=== PATIENT | male | born 1955 | race Caucasian/White ===

== ENCOUNTER 2017-03-31 15:14 | Emergency (ER) | payer OTHER, MEDICAID ==
[2017-03-31] MEDS ORDERED: NALOXONE HCL 0.4 MG/ML INJ IVP ONE (15:26)
--- NOTE | 2017-03-31 15:33 | EDPHY ---
H & P Stated Complaint: Low oxygen saturation. Time Seen by Provider: 03/31/17 15:31 HPI/ROS: CHIEF COMPLAINT: Somnolence, hypoxemia HISTORY OF PRESENT ILLNESS: The patient is brought into the emergency department from [facility] where he was noted to be acutely somnolent and hypoxemic. The patient reportedly has a history of leaving the senior living facility and engaging in recreational drug use. They report through paramedics a history of methamphetamine abuse as well as marijuana abuse. The patient told paramedics that he went to [facility], had a Big Mac and reportedly took some pills. The patient has no history of recent illness by EMS report. The patient denies acute complaints in the emergency department. He is arousable however falls back asleep quickly. REVIEW OF SYSTEMS: A comprehensive 10 point review of systems is otherwise negative aside from elements mentioned in the history of present illness. Source: Patient, EMS - Personal History Current Tetanus Diphtheria and Acellular Pertussis (TDAP): Unsure - Medical/Surgical History Hx Asthma: No Hx Chronic Respiratory Disease: Yes Hx Diabetes: No Hx Cardiac Disease: No Hx Renal Disease: No Hx Cirrhosis: No Hx Alcoholism: No Hx HIV/AIDS: No Hx Splenectomy or Spleen Trauma: No Other PMH: COPD. HTN. Spinal stenosis. Hepatitis. Cognitive communication deficit. Swelling to left upper arm. - Social History Smoking Status: Unknown if ever smoked - Physical Exam Exam: General Appearance: Somnolent, arousable to painful stimuli Eyes: Slightly miotic pupils noted, reactive bilaterally ENT, Mouth: Dry mucous membranes Respiratory: There are no retractions, lungs are clear to auscultation Cardiovascular: Regular rate and rhythm Gastrointestinal: Abdomen is soft and nontender, no masses, bowel sounds normal Neurological: Moves all 4 extremities with 5/5 strength, unable to participate in cranial nerve exam secondary to somnolence Skin: Stasis dermatitis bilateral lower extremities Musculoskeletal: Neck is supple nontender Extremities: Changes consistent with stasis dermatitis noted to the bilateral lower extremities Constitutional: Initial Vital Signs Temperature (C) 36.7 C 03/31/17 15:23 Heart Rate 86 03/31/17 15:23 Respiratory Rate 19 03/31/17 15:23 Blood Pressure 128/106 H 03/31/17 15:23 O2 Sat (%) 86 L 03/31/17 15:23 O2 Delivery Mode Nasal Cannula O2 (L/minute) 5 Allergies/Adverse Reactions: Penicillins Allergy (Verified 03/31/17 15:29) vecuronium Allergy (Verified 03/31/17 15:29) Home Medications: Medication Instructions Recorded ACETAMINOPHEN 03/31/17 Fentanyl 03/31/17 GABAPENTIN 03/31/17 Norvasc 03/31/17 Ranitidine HCl 03/31/17 morphINE 03/31/17 Medical Decision Making - Diagnostics Imaging Results: Imaging Impressions Chest X-Ray 03/31/17 15:26 Impression: Limited hypoventilatory chest with indistinct right basilar opacities possibly related to aspiration, atelectasis, and/or pneumonia. Head CT 03/31/17 17:46 Impression: 1. Limited assessment of severe spinal canal narrowing at the craniocervical junction. CT or MRI is recommended for further evaluation. 2. Motion limited study, with no acute intracranial findings. 3. Linear hypodensity in the left cerebellum, possibly related to old infarct. 4. Diffuse cerebral atrophy, with periventricular and subcortical low attenuation consistent with chronic microvascular ischemic gliosis. 5. Anterior subluxation of the temporomandibular joints bilaterally, with moderate degenerative change in the left temporomandibular joint. Findings discussed with Jaime Lobo M.D., on March 31, 2017 at 1916. ED Course/Re-evaluation: The patient was placed on supplemental oxygen. Given his hypoxemia and slight miosis 0.4 mg of Narcan was ordered at 3:30 p.m.. The patient had minimal response to Narcan. He is arousable. He was placed on a patent chemist and observed. Given the patient's underlying cognitive dysfunction at baseline he did undergo a head CT scan which demonstrates no evidence of intracranial hemorrhage. The patient is noted to have positive marijuana and opioids on his toxicology screen. The remainder of the patient's vital signs are stable. His hypoxemia has resolved. His mentation appears to be at baseline. The patient will be discharged back to his senior living facility. They are instructed to return the patient for any recurrent acute altered mental status, vital sign abnormalities or other acute concerns. Differential Diagnosis: Differential diagnosis considered includes intracranial hemorrhage, medication side effect, febrile illness, substance abuse, alcohol intoxication - Data Points Laboratory Results: Laboratory Results 03/31/17 15:17 03/31/17 15:17 03/31/17 03/31/17 03/31/17 16:33 15:17 15:17 WBC TNP RBC Not Reported Hgb Not Reported Hct Not Reported MCV Not Reported MCH Not Reported MCHC Not Reported RDW Not Reported Plt Count Not Reported MPV Not Reported Neut % (Auto) Not Reported Lymph % (Auto) Not Reported [place] % (Auto) Not Reported Eos % (Auto) Not Reported Baso % (Auto) Not Reported Nucleat RBC Rel Count Not Reported Absolute Neuts (auto) Not Reported Absolute Lymphs (auto) Not Reported Absolute Monos (auto) Not Reported Absolute Eos (auto) Not Reported Absolute Basos (auto) Not Reported Absolute Nucleated RBC Not Reported Immature Gran % Not Reported Immature Gran # Not Reported Sodium 141 mEq/L mEq/L (134-144) Potassium 5.1 mEq/L mEq/L (3.5-5.2) Chloride 102 mEq/L mEq/L (97-110) Carbon Dioxide 24 mEq/l mEq/l (22-31) Anion Gap 15 mEq/L mEq/L (8-16) BUN 22 mg/dL mg/dL (7-23) Creatinine 0.9 mg/dL mg/dL (0.7-1.3) Estimated GFR > 60 Glucose 101 mg/dL H mg/dL (70-100) Calcium 10.0 mg/dL mg/dL (8.5-10.4) Urine Opiates Screen NON-NEGATIVE H (NEGATIVE) Urine Barbiturates NEGATIVE (NEGATIVE) Ur Phencyclidine Scrn NEGATIVE (NEGATIVE) Ur Amphetamine Screen NEGATIVE (NEGATIVE) U Benzodiazepines Scrn NEGATIVE (NEGATIVE) Urine Cocaine Screen NEGATIVE (NEGATIVE) U Marijuana (THC) Screen NON-NEGATIVE H (NEGATIVE) Ethyl Alcohol < 10 mg/dL mg/dL (0-10) Medications Given: Discontinued Medications Naloxone HCl (Narcan) 0.4 mg IVP EDNOW ONE Stop: 03/31/17 15:27 Last Admin: 03/31/17 15:44 Dose: 0.4 mg Departure - Departure Disposition: Home, Routine, Self-Care Clinical Impression: Marijuana use Condition: Good Instructions: Altered Mental Status (ED) Additional Instructions: 1. Your urine toxicology shows marijuana and opioids. 2. Return to ED for any acute concerns or vital sign abnormalities. Referrals: JAIME HEIN [Primary Care Provider] - As per Instructions
[2017-03-31 16:06] LABS: ANION GAP 15 mEq/L (8-16); CARBON DIOXIDE 24 mEq/l (22-31); CHLORIDE 102 mEq/L (97-110); CREATININE 0.9 mg/dL (0.7-1.3); ETHANOL SERUM < 10 mg/dL (0-10); GLOMERULAR FILTRATION RATE > 60; GLUCOSE 101 mg/dL (70-100); POTASSIUM 5.1 mEq/L (3.5-5.2); SODIUM 141 mEq/L (134-144)
[2017-03-31 18:33] VITALS: TEMP 97.7
[2017-03-31 20:14] VITALS: RESP 20
[2017-03-31 20:20] VITALS: BP 140/89; PULSE 66; O2SAT 91
== END 2017-03-31 21:21 | disposition home or self-care (01) ==
DX: R09.02 Hypoxemia (principal); F12.90 Cannabis use, unspecified, uncomplicated; J44.9 Chronic obstructive pulmonary disease, unspecified; I10 Essential (primary) hypertension
CPT/HCPCS: 70450; 71010; 96374; 99285; J2310; 80305; G0480

== ENCOUNTER 2017-04-03 12:19 | Inpatient (IN) | payer OTHER, MEDICAID ==
--- NOTE | 2017-04-03 13:05 | EDPHY ---
H & P Smoking Status: Unknown if ever smoked Time Seen by Provider: 04/03/17 12:23 HPI/ROS: Chief complaint. Hypoxia HPI. A 62-year-old male who is a resident of [facility] here by EMS for low pulse oximeter. The patient apparently had a trip and fall earlier today and then was found later in bed without his oxygen on. Oxygen saturation was about 84% on room air. Patient is normally on oxygen at 3 liters/minute. EMS placed the patient initially on a mask and then back to 3 L. He is now about 92% on 3 L. he denies head injury or neck pain. Denies chest pain or sense of shortness of breath. No fever cough. No abdominal pain. Slight swelling of his lower extremities which is chronic. ROS Constitutional. no fever/chills, no weakness Eyes. no problems with vision ENT. no sore throat, no nasal drainage Cardiovascular. no chest pain Respiratory. Low oxygen level Abdominal. no abdominal pain, no nausea/vomiting, no diarrhea . no problems urinating MS. no calf pain/swelling, no neck/back pain, no joint pain. Slight swelling to both ankles Skin. no rash Lymph. no swollen glands Neuro. Walks with a walker (Zeeshan Rice S) Past Medical/Surgical History: Acute on chronic respiratory failure, chronic hepatitis, cognitive communication deficit the, substance abuse, spinal stenosis, ataxia, COPD , hypertension (Zeeshan Rice S) Social History: Single, daily smoker, no alcohol (Zeeshan Rice) Physical Exam: General Appearance: Alert well-developed male mild distress vital signs significant for oxygen saturation 90-92% on his usual 3 L Eyes: Pupils equal and round no pallor or injection. ENT, Mouth: Mucous membranes are moist. Respiratory: No retractions. Mild inspiratory and expiratory rhonchi Cardiovascular: Regular rate and rhythm. Gastrointestinal: Abdomen is soft and nontender, no masses, bowel sounds normal. Neurological: Awake and alert, sensory and motor exams grossly normal. Skin: Warm and dry, no rashes. Musculoskeletal: Neck is supple nontender. Extremities 1+ pedal edema bilaterally Psychiatric: Patient is oriented X 3, there is no agitation. (Zeeshan Rice S) Constitutional: Initial Vital Signs Temperature (C) 36.9 C 04/03/17 12:23 Heart Rate 86 04/03/17 12:23 Respiratory Rate 18 04/03/17 12:23 Blood Pressure 134/84 H 04/03/17 12:23 O2 Sat (%) 90 L 04/03/17 12:23 O2 Delivery Mode Non-Rebreather Mask O2 (L/minute) 4 Allergies/Adverse Reactions: Penicillins Allergy (Verified 03/31/17 15:29) vecuronium Allergy (Verified 03/31/17 15:29) Home Medications: Medication Instructions Recorded ACETAMINOPHEN 03/31/17 Fentanyl 03/31/17 GABAPENTIN 03/31/17 Norvasc 03/31/17 Ranitidine HCl 03/31/17 morphINE 03/31/17 Medical Decision Making - Diagnostics EKG Interpretation: EKG time is 2:46 p.m.; EKG shows a narrow complex normal sinus rhythm with a ventricular rate of 93. Borderline right axis deviation noted. Low voltage in the frontal leads. The OK, QRS, QT intervals are within normal limits. There are no ST-T wave changes indicative of ischemic or injury pattern. No evidence of right heart strain. Interpreted by me. (Ambrosio Priest) Imaging Results: Imaging Impressions Chest X-Ray 04/03/17 13:10 Impression: 1. Right lower lobe pneumonia. 2. Cardiomegaly. 3. No pneumothorax. Imaging Impressions Chest X-Ray 04/03/17 13:10 Impression: 1. Right lower lobe pneumonia. 2. Cardiomegaly. 3. No pneumothorax. Chest x-ray reviewed by me and discussed with consistent with right lower lobe pneumonia (Zeeshan Rice) Procedures: IV normal saline, oxygen, monitor Sepsis workup including blood cultures (Zeeshan Rice) ED Course/Re-evaluation: I took over care of this patient at 3:00 p.m.. This patient has a right lower lobe infiltrate on x-ray. The patient will be admitted for pneumonia to the hospitalist service under the care of Dr. Giovani Olivier. Blood cultures have been ordered. Initial sepsis protocol initiated. The patient will be started on IV ceftriaxone and IV azithromycin in the emergency department. 4:00 p.m., patient has received his IV antibiotics as above. Initial venous lactate is 0.8. Laboratory work reviewed. EKG interpretation as above. Patient's remaining emergency department course under my care has been uneventful. Patient admitted to the hospitalist service in stable and improved condition. (Ambrosio Priest) Differential Diagnosis: I considered COPD exacerbation, pneumonia, congestive heart failure (Zeeshan Rice) Care Turn Over: Dr. Priest at 1500 (Zeeshan Rice) - Data Points Medications Given: Discontinued Medications Acetaminophen (Tylenol) 1,000 mg PO EDNOW ONE Stop: 04/03/17 14:50 Last Admin: 04/03/17 14:50 Dose: 1,000 mg Departure - Departure Disposition: [facility] Inpatient Acute Clinical Impression: Pneumonia, Hypoxia
[2017-04-03] MEDS ORDERED: ACETAMINOPHEN 500 MG TAB PO ONE (14:49)
--- NOTE | 2017-04-03 14:49 | CPEKG ---
Heart Rate: 93 RR Interval: 645 P-R Interval: 172 QRSD Interval: 98 QT Interval: 372 QTC Interval: 463 P Polk: 48 QRS Polk: 81 T Wave Polk: 9 EKG Severity - OTHERWISE NORMAL ECG - EKG Impression: SINUS RHYTHM EKG Impression: BORDERLINE RIGHT AXIS DEVIATION EKG Impression: LOW VOLTAGE IN FRONTAL LEADS Electronically Signed By: Zeeshan Rice 03-Apr-2017 15:27:27
[2017-04-03] MEDS ORDERED: AZITHROMYCIN IV 500 MG in D5W 250 ML IV ONE (15:04)
[2017-04-03 15:29] LABS: % IMMATURE GRANULYOCYTES 0.3 % (0.0-1.1); ABSOLUTE IMMATURE GRANULOCYTES 0.02 10^3/uL (0.00-0.10); ADD DIFF? NO; ADD MORPH? NO; ADD SCAN? NO; ATYPICAL LYMPHOCYTE FLAG 0 (0-99); FRAGMENT RBC FLAG 0 (0-99); HEMATOCRIT 45.8 % (40.0-51.0); HEMOGLOBIN 13.8 g/dL (13.7-17.5); LEFT SHIFT FLG 0 (0-99); LIPEMIA HEMOLYSIS FLAG 80 (0-99); MEAN CELL HEMOGLOBIN 24.6 pg (27.9-34.1); MEAN CELL HEMOGLOBIN CONCENTR. 30.1 g/dL (32.4-36.7); MEAN CELL VOLUME 81.8 fL (81.5-99.8); MEAN PLATELET VOLUME 8.8 fL (8.7-11.7); PLATELET CLUMPS FLAG 20 (0-99); PLATELET COUNT 220 10^3/uL (150-400); RED CELL DISTRIBUTION WIDTH 19.2 % (11.5-15.2)
[2017-04-03 15:38] LABS: INR 1.1 (0.83-1.16); PROTIME(PATIENT) 14.1 SEC (12.0-15.0)
[2017-04-03 15:39] LABS: APTT 27.8 SEC (23.0-38.0)
[2017-04-03 15:46] LABS: ANION GAP 14 mEq/L (8-16); CALCIUM 9.4 mg/dL (8.5-10.4); CARBON DIOXIDE 25 mEq/l (22-31); CHLORIDE 102 mEq/L (97-110); CREATININE 0.7 mg/dL (0.7-1.3); GLOMERULAR FILTRATION RATE > 60; GLUCOSE 119 mg/dL (70-100); POTASSIUM 4.6 mEq/L (3.5-5.2); SODIUM 141 mEq/L (134-144)
[2017-04-03] MEDS ORDERED: IPRATROPIUM/ALBUTEROL 3 ML DEYVIAL IH PRN (15:46)
[2017-04-03] MEDS ORDERED: ACETAMINOPHEN 325 MG TAB PO PRN ×2 (15:46→17:09)
[2017-04-03] MEDS ORDERED: ONDANSETRON 4 MG/2 ML VIAL IVP PRN (15:46)
[2017-04-03 15:58] LABS: TROPONIN I < 0.012 ng/mL (0.000-0.034)
--- NOTE | 2017-04-03 16:20 | GHP ---
[f rep st] HISTORY AND PHYSICAL DATE OF ADMISSION: 04/03/2017 CHIEF COMPLAINT: Hypoxia. HISTORY OF PRESENT ILLNESS: This is a 62-year-old male who resides at [facility] and was brought to the emergency department by EMS after he was found to have a room air oxygen saturation in the 80s . Patient was found in bed without his oxygen on, which he wears due to his COPD. 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 He denies any chest pain, but tells me he does have some shortness of breath. N o fevers or chills. He is unable to tell me if he has been having any problems swallowing. PAST MEDICAL HISTORY: 1. Mvuse-ze-rvtgmhp respiratory failure. 2. Chronic hepatitis. 3. Cognitive communication deficits, substance abuse, spinal stenosis, ataxia, COPD, and hypertensio n. SURGICAL HISTORY: Unobtainable. SOCIAL HISTORY: The patient resides at [facility]. He does have history of tobacco use. No hist ory of alcohol use. FAMILY HISTORY: Unobtainable. REVIEW OF SYSTEMS: A comprehensive 10-point review of systems was attempted; however, it seemed unre liable given the patient does not seem to be an effective communicator. PHYSICAL EXAMINATION: VITAL SIGNS: Blood pressure 134/82, pulse of 85, respiratory rate 16, O2 SAT 95% on non-rebreather, temperature 38.5. Initial room air saturation was 84%. GENERAL: No acute di stress. HEAD: Normocephalic, atraumatic. EYES: PERRLA. Sclerae anicteric. MOUTH: Moist mucous membranes. NECK: Supple. No lymphadenopathy. CARDIOVASCULAR: S1, S2. No JVD. There are lower e xtremity edema and signs of stasis dermatitis. PULMONARY: Diminished breath sounds in the right bas e. Lungs otherwise clear. Normal respiratory effort. ABDOMEN: Soft, nontender, nondistended. No guarding or rebound tenderness. Normoactive bowel sounds. EXTREMITIES: No clubbing or cyanosis. N EURO: Cranial nerves 2 through 12 grossly intact. SKIN: There are signs of stasis dermatitis in aniya th legs. DIAGNOSTICS: WBC is 5.8, hemoglobin 13.8, hematocrit 45.8, platelets 220. Coags are pending. Lacti c acid is 0.8. Chemistry panel is pending. BNP is pending. Chest x-ray, which I visualized and per sonally interpreted, shows a right lower lobe pneumonia with some cardiomegaly. EKG, which I visuali zed and personally interpreted, shows sinus rhythm, rate 93 beats per minute; no acute ischemic james es. ASSESSMENT AND PLAN: This is a 62-year-old male with history of ufzxe-bl-fxltyql respiratory failure due to chronic obstructive pulmonary disease and history of tobacco use, who presents with: 1. Frlgs-fc-cwntpnr respiratory failure with evidence for pneumonia. Plan: The patient will be adm itted to the medical surgical floor where he will be continued on azithromycin and ceftriaxone. Bloo d cultures have been drawn. 2. Cardiomegaly on chest x-ray with signs of stasis dermatitis in the legs. Plan: will follow up a BNP. The patient may need some treatment with diuretics. Will defer ordering an echocardiogram at t his time. At this time, the patient will be admitted to the hospital under full code status per his MOLST form that was available in [facility] dated 12/11/2016. /[id number]/MODL
[2017-04-03] MEDS ORDERED: NON-FORMULARY NEW DRUG (Oxycodone Hcl/Acetaminophen [Percocet 10-325 Mg Tablet] 1 EACH) PO PRN (17:09)
[2017-04-03] MEDS: oxyCODONE IR 5 MG TAB PO PRN (18:50)
[2017-04-03] MEDS: OXYCODONE/APAP 5/325 TAB PO PRN (18:50)
[2017-04-03] MEDS: FAMOTIDINE 20 MG TAB PO SCH (20:10)
[2017-04-03] MEDS: morphINE SR 30 MG TAB PO SCH (20:10)
[2017-04-03] MEDS: guaiFENesin 600 MG TAB.ER PO SCH (20:11)
[2017-04-03] MEDS ORDERED: NON-FORMULARY NEW DRUG (Ranitidine Hcl [Ranitidine Hcl] 150 MG) PO SCH (21:00)
[2017-04-03] MEDS: GABAPENTIN 300 MG CAP PO SCH (21:33)
[2017-04-03] MEDS ORDERED: NON-FORMULARY NEW DRUG (Gabapentin [Gabapentin] 600 MG) PO SCH (22:00)
[2017-04-04] MEDS: oxyCODONE IR 5 MG TAB PO PRN ×3 (02:50→21:32)
[2017-04-04] MEDS: OXYCODONE/APAP 5/325 TAB PO PRN ×3 (02:50→19:50)
[2017-04-04 04:40] LABS: % IMMATURE GRANULYOCYTES 0.2 % (0.0-1.1); ABSOLUTE IMMATURE GRANULOCYTES 0.01 10^3/uL (0.00-0.10); ADD DIFF? NO; ADD MORPH? NO; ADD SCAN? NO; ATYPICAL LYMPHOCYTE FLAG 10 (0-99); FRAGMENT RBC FLAG 0 (0-99); HEMATOCRIT 42.3 % (40.0-51.0); HEMOGLOBIN 12.7 g/dL (13.7-17.5); LEFT SHIFT FLG 0 (0-99); LIPEMIA HEMOLYSIS FLAG 80 (0-99); MEAN CELL VOLUME 83.1 fL (81.5-99.8); MEAN PLATELET VOLUME 8.1 fL (8.7-11.7); PLATELET CLUMPS FLAG 0 (0-99); PLATELET COUNT 171 10^3/uL (150-400); RED BLOOD CELL COUNT 5.09 10^6/uL (4.40-6.38); RED CELL DISTRIBUTION WIDTH 18.6 % (11.5-15.2)
[2017-04-04 04:56] LABS: ANION GAP 9 mEq/L (8-16); CALCIUM 8.9 mg/dL (8.5-10.4); CARBON DIOXIDE 27 mEq/l (22-31); CHLORIDE 105 mEq/L (97-110); CREATININE 0.8 mg/dL (0.7-1.3); GLOMERULAR FILTRATION RATE > 60; GLUCOSE 97 mg/dL (70-100); POTASSIUM 4.2 mEq/L (3.5-5.2); SODIUM 141 mEq/L (134-144)
[2017-04-04] MEDS: DULoxetine 60 MG CAP PO SCH (08:13)
[2017-04-04] MEDS: MULTIVITAMINS 1 EACH TAB PO SCH (08:13)
[2017-04-04] MEDS: guaiFENesin 600 MG TAB.ER PO SCH ×2 (08:13→20:28)
[2017-04-04] MEDS: FAMOTIDINE 20 MG TAB PO SCH ×2 (08:14→20:30)
[2017-04-04] MEDS: GABAPENTIN 300 MG CAP PO SCH ×3 (08:14→20:27)
[2017-04-04] MEDS: FOLIC ACID 1 MG TAB PO SCH (08:15)
[2017-04-04] MEDS: AZITHROMYCIN IV 500 MG in D5W 250 ML IV SCH (08:15)
[2017-04-04] MEDS: morphINE SR 30 MG TAB PO SCH ×2 (08:15→20:30)
[2017-04-04] MEDS: ENOXAPARIN 40 MG/0.4 ML SYR SC SCH (08:15)
[2017-04-04] MEDS ORDERED: Herbals/Supplements -Info Only PO SCH (09:00)
[2017-04-04] MEDS ORDERED: ALBUTEROL 3 ML DEYVIAL IH PRN (11:07)
--- NOTE | 2017-04-04 11:07 | HOSPPROG ---
Hospitalist Progress Note Assessment/Plan: 62 yo M with PMH of COPD, CVA with residual cognitive deficits, spinal stenosis and ataxia admitted with acute on chronic respiratory failure and pna # acute on chronic hypoxic respiratory failure: at baseline on 3L continuously and [facility] with [facility] off and o2 sats in low to mid 80s, requiring 10L overnight to maintain o2 sats in 90s. CXR c/w PNA as next, also suspect contribution of copd exacerbation and atelectasis, possible aspiration. # RLL PNA: noted on cxr and started on ctx/azithro, ? aspiration given hx of cognitive issues and location of pna, director human services to evaluate # copd with acute exacerbation: air movement decreased in setting of above, will change duonebs to scheduled given continued low o2 and poor air mvmt, albuterol prn. Will continue to hold off on steroids for now # chronic venous stasis dermatitis: with associated ble edema and some serous drainage from the lower extremities as well as scattered wounds. Will ask wound care to evaluate. # hx of cva: with residual cognitive deficits, resides in [facility] since cva # psa: patient apparently has [facility] in [facility] to obtain drugs on the street, seen recently in our ER for meth/MJ intoxication # spinal stenosis/ataxia: pt/ot to evaluate # chronic pain with continuous narcotic use and dependency: continued on home regimen # dispo: IP status, will need > 48 hours stay for eval/mgmt of above given multiple active medical issues Patient new to my care. Old records reviewed and summarized as above. Subjective: no significant overnight events, patient is currently feeling poorly --notes he did not sleep well and that he is still feeling sob Objective: Vital Signs Temp Pulse Resp BP Pulse Ox 36.9 C 71 16 139/69 H 98 04/04/17 08:27 04/04/17 08:27 04/04/17 08:27 04/04/17 08:27 04/04/17 08:27 Laboratory Results 04/04/17 04:29 04/04/17 04:29 04/03/17 04/04/17 04/05/17 05:59 05:59 05:59 Intake Total 150 Output Total 1700 Balance -1550 PT 14.1 SEC (12.0-15.0) 04/03/17 15:20 INR 1.10 (0.83-1.16) 04/03/17 15:20 chronically ill appearing anicteric op clear rrr no mrg dec bs throughout occasional wheeze soft nt nd ble 1+ edema with skin thickening and hyperpigmentation c/w venous stasis, spontaneous drainage serous fluid RLE warm dry well perfused other than as above speech a bit slurred, oriented ICD10 Worksheet Patient Problems: Problems Problem Status Onset Pneumonia Acute Hypoxia Acute
[2017-04-04] MEDS: IPRATROPIUM/ALBUTEROL 3 ML DEYVIAL IH SCH ×2 (12:00→18:29)
--- NOTE | 2017-04-04 17:06 | ASDISCHSUM ---
Discharge Information Plan Status: Medically Cleared to Leave: Discharge Date: CM D/C Disposition: ADT D/C Disposition: Projected Discharge Date: Transportation at D/C: Discharge Delay Reason: Follow-Up Date: Discharge Slot: Final Diagnosis: Placement Information Patient Contact Information Contact Name:KATHERYN Relationship:Friend Address: Work Phone: City: [facility] Phone: State/Zip Code: Email: Financial Information Financial Class: Primary Plan Desc:MEDICARE OUTPATIENT Primary Plan Number:[id number] Secondary Plan Desc:MEDICAID [employer] [place] Secondary Plan Number:[id number] Assessment Information Intervention Information Intervention Type:Transportation Date of Service:04/03/2017 01:52 PM Patient Type:Emergency Room Staff Member:Nico De La Torre Hours:0.25 Discipline: Severity: Comment:
--- NOTE | 2017-04-04 17:58 | ASMTCMCOM ---
CM Note CM Note Notes: Reviewed chart. Pt admitted w/ resp failure, PNA, hx of CVA w/ residual deficits, COPD, spinal stenosis and ataxia. Pt lives at [facility] and will likey return to when medically stable. CM will cont to follow. Date Signed: 04/04/2017 05:58 PM Electronically Signed By:Sheila Monroy
--- NOTE | 2017-04-04 18:01 | WOCRNPDOC ---
WOCRN Advanced Assessment Note - Skin Integrity Problem, Advanced Assess Bilateral Lower Legs Dressing Type: Open to Air Exudate Amount: None Anika Wound Tissue: Erythema (mild), Hemosiderin Staining, Xerotic Wound Bed Color: Brown Wound Bed Constitution: Scab Wound Edges: Attached, Well Defined, Irregular Site Odor: None Site Measurement - Head-to-Toe Length X Width X Depth (cm): several--varying from <1cm x 0.7 cm, up to 6 cm x 1 cm x 0 (scabbed) Lymphedema Present: Yes Peripheral Edema Location & Description: bilateral ankles and LEs, 1+ non- pitting Skin Integrity Problem Comment: Patient asleep at time of eval. Bilateral LE wounds have an appearance more consistent with traumatic injuries, such as fingernail scratches or abrasions, rather than venous ulcers, however the surrounding hemosiderin skin coloration and mild edema are suggestive of chronic venous stasis. No drainage of any kind is observable at this visit. Most of the wounds are small and appear to be superficial. The two or three larger wounds are thin, vertical scabs. Antimicrobial silver gel and protective dressings have been recommended for these sites. Nursing is to re-consult Wound Care for any new concerns. Verbal report was given to Silvina Madrid RN.
[2017-04-05] MEDS: IPRATROPIUM/ALBUTEROL 3 ML DEYVIAL IH SCH ×3 (01:18→11:41)
[2017-04-05] MEDS: OXYCODONE/APAP 5/325 TAB PO PRN ×2 (04:11→16:03)
[2017-04-05] MEDS: oxyCODONE IR 5 MG TAB PO PRN (04:12)
[2017-04-05] MEDS: AZITHROMYCIN IV 500 MG in D5W 250 ML IV SCH (08:25)
[2017-04-05 08:35] VITALS: TEMP 98.1
[2017-04-05] MEDS: ENOXAPARIN 40 MG/0.4 ML SYR SC SCH (09:53)
[2017-04-05] MEDS: morphINE SR 30 MG TAB PO SCH (09:54)
[2017-04-05] MEDS: FOLIC ACID 1 MG TAB PO SCH (09:54)
[2017-04-05] MEDS: GABAPENTIN 300 MG CAP PO SCH ×2 (09:54→16:01)
[2017-04-05] MEDS: guaiFENesin 600 MG TAB.ER PO SCH (09:54)
[2017-04-05] MEDS: FAMOTIDINE 20 MG TAB PO SCH (09:55)
[2017-04-05] MEDS: MULTIVITAMINS 1 EACH TAB PO SCH (09:55)
[2017-04-05] MEDS: DULoxetine 60 MG CAP PO SCH (09:55)
--- NOTE | 2017-04-05 11:38 | PDIAF ---
- Diagnosis Diagnosis: pneumonia Code Status: Full Code - Medication Management Discharge Medications: Medications to Continue on Transfer Acetaminophen [Tylenol 325mg (*)] 650 mg PO Q8 PRN 04/03/17 [Last Taken Unknown] DULoxetine [Cymbalta 60 MG (*)] 60 mg PO DAILY 04/03/17 [Last Taken 04/03/17] Folic Acid [Folic Acid 1 MG (*)] 1 mg PO DAILY 04/03/17 [Last Taken 04/03/17] Gabapentin 600 mg PO TID 04/03/17 [Last Taken 04/03/17 08:00] Herbals/Supplements -Info Only 1 ea PO DAILY 04/03/17 [Last Taken Unknown] Multivitamins [Multivitamin (*)] 1 each PO DAILY 04/03/17 [Last Taken 04/03/17] Ranitidine HCl 150 mg PO BID 04/03/17 [Last Taken 04/03/17 08:00] amLODIPine BESYLATE [Norvasc 10 mg (*)] 10 mg PO DAILY 04/03/17 [Last Taken 04/11] morphINE SR [MS Contin/Oramorph SR 30 mg (*)] 30 mg PO BID 04/03/17 [Last Taken 04/03/17 08:00] oxyCODONE HCL/ACETAMINOPHEN [Percocet 10-325 mg Tablet] 1 each PO Q8 PRN [Last Taken 04/02/17] Ipratropium/Albuterol [Duoneb (*)] 3 ml IH Q6 deyvial 04/05/17 [Last Taken Unknown] Tamsulosin HCl [Flomax 0.4 MG (*)] 0.4 mg PO DAILY #30 cap 04/05/17 [Last Taken Unknown] guaiFENesin [Mucinex 600 MG (*)] 1,200 mg PO BID tab.er 04/05/17 [Last Taken Unknown] levOFLOXACIN [levAQUIN (*)] 750 mg PO DAILY #5 tab 04/05/17 [Last Taken Unknown] Discharge Medications: Refer to the Discharge Home Medication list for PRN reason. - Orders Services needed: Registered Nurse, Physical Therapy, Occupational Therapy, Speech Language Pathologist Diet Recommendation: no restrictions on diet Diet Texture: Dysphagia 1 - Pureed, [place] Thick Liquids, Meds Whole in Puree - Follow Up Care Current Providers and Referrals: Patient,NotPresent [Unknown] - As per Instructions
[2017-04-05 11:47] VITALS: RESP 22; O2SAT 93
--- NOTE | 2017-04-05 12:45 | GDS ---
[f rep st] DISCHARGE SUMMARY DISCHARGE DIAGNOSES: 1. Gtvsc-hu-xucosxc respiratory failure, most likely due to pneumonia. 2. Chronic obstructive pulmonary disease with mild exacerbation, improved. 3. Chronic venous stasis dermatitis. 4. Urinary retention. 5. History of cerebrovascular accident with residual cognitive deficits. 6. History of polysubstance abuse. 7. Spinal stenosis with chronic pain syndrome. CONSULTANTS: None. HOSPITAL COURSE BY PROBLEM: Emobi-xu-tkputzx respiratory failure: The patient presented with hypoxe emani when he was found at his longterm not wearing oxygen. He was started on treatment for commun ity-acquired pneumonia with Rocephin and azithromycin. Throughout his stay, he has not had a fever. His white count has been normal. On day of discharge, the patient states he feels well and would li ke to be discharged. He is back to his baseline oxygen requirements by nasal cannula. He is not cou ghing. He denies any wheezing. Patient did have an episode of urinary retention; subsequently, a Fo tres catheter was placed. On day of discharge, he will be started on Flomax. Recommended that he jamaal n to discharge with the Hernandez catheter in place, which will need further management at his skilled [facility] facility to evaluate when it is safe to remove it. PHYSICAL EXAM: VITAL SIGNS: On day of discharge, blood pressure 136/80, pulse 63, respiratory rate 16, O2 sat is 92% on 6 L, but was in the mid 90s on 3 L during the time of my exam. LUNGS: Clear. No wheezes. ABDOMEN: Soft. EXTREMITIES: No edema. PERTINENT LABORATORY DATA AND STUDIES: Viral PCR done on admission was negative. Blood cultures hav e not grown any organisms. DISCHARGE MEDICATIONS: Please refer to discharge medication reconciliation in [facility] for details. Below is a preliminary list. New medications on hospital discharge: Flomax 0.4 mg daily, levofloxacin 750 mg p.o. daily for 5 mor e days. DISCHARGE INSTRUCTIONS: The patient will be discharged to [facility] facility on Flomax. Once again, he will need further monitoring to see when the Hernandez should be removed. I should also note t hat he was seen by Speech Therapy during this hospital stay and was not noted to have any obvious sig ns of aspiration; however, they did recommend a dysphagia-1 diet. He should continue to have physica l therapy on an outpatient basis. /[id number]/MODL
[2017-04-05 13:12] VITALS: BP 139/79; PULSE 61
== END 2017-04-05 16:33 | DRG 189 ==
LOC: EDUNIT# → F1N 17:01
PROVIDERS: ADMIT Family Medicine; ATTEND Family Medicine
DX: J96.20 Acute and chronic respiratory failure, unspecified whether with hypoxia or hypercapnia (principal); J18.8 Other pneumonia, unspecified organism; J44.1 Chronic obstructive pulmonary disease with (acute) exacerbation; I83.10 Varicose veins of unspecified lower extremity with inflammation; R33.9 Retention of urine, unspecified; Z86.73 Personal history of transient ischemic attack (TIA), and cerebral infarction without residual deficits; G89.4 Chronic pain syndrome; M48.00 Spinal stenosis, site unspecified; Z87.891 Personal history of nicotine dependence
CPT/HCPCS: 80305; 92610-GN; 92611-GN; 96374; 97110-GP; 97116-GP; 97162-GP; 97166-GO; G0480; G8978-GP-CL; G8979-GP-CJ; G8987-GO-CL; G8988-GO-CJ; G8996-GN-CJ; G8997-GN-CI; J0456; J0696; J1650; J2310

== ENCOUNTER 2017-05-12 23:49 | Inpatient (IN) | payer OTHER, MEDICAID ==
[2017-05-12] MEDS ORDERED: NS 500 ML IV ONE (23:54)
--- NOTE | 2017-05-13 | EDPHY ---
H & P HPI/ROS: HPI CHIEF COMPLAINT: Fall, hematoma. HISTORY OF PRESENT ILLNESS: This patient very pleasant 62-year-old male, resides local facility, presents emergency room by EMS after he had a mechanical trip and fall reported by EMS staff in the hallway while walking. He has a very unsteady gait at baseline. He is a fall risk. He sustained a fall. He has a rather large left-sided forehead hematoma. He does complain of a headache. He denies any other complaints. Questionable LOC. Past Medical History: History polysubstance abuse, pneumonia, COPD 6 L nasal cannula, on oxygen, CVA, chronic pain. Past Surgical History: No recent surgery Social History: Denies current drugs alcohol tobacco products. Family History: Noncontributory ROS REVIEW OF SYSTEMS: A comprehensive 10 point review of systems is otherwise negative aside from elements mentioned in the history of present illness. Exam Constitutional triage nursing summary reviewed, vital signs reviewed, awake/ alert. Eyes normal conjunctivae and sclera, EOMI, PERRLA. HENT head/neck patient in a rigid cervical collar. Large left forehead hematoma. moist mucus membranes, no epistaxis, neck supple/ no meningismus, no raccoon eyes. Respiratory clear to auscultation bilaterally, normal breath sounds, no respiratory distress, no wheezing. Cardiovascular rate normal, regular rhythm, no murmur, no edema, distal pulses normal. Gastrointestinal soft, non-tender, no rebound, no guarding, normal bowel sounds, no distension, no pulsatile mass. Genitourinary no CVA tenderness. Musculoskeletal no midline vertebral tenderness, full range of motion, no calf swelling, no tenderness of extremities, no meningismus, good pulses, neurovascularly intact. Skin pink, warm, & dry, no rash, skin atraumatic. Neurologic awake, alert and oriented x 3, AAOx3, moves all 4 extremities equally, motor intact, sensory intact, CN II-XII intact, normal cerebellar, normal vision, normal speech. Psychiatric normal mood/affect. Heme/Lymph/Immune no lymphadenopathy. Differential Diagnosis: Includes but is not limited to in a particular order, closed-head injury, intracranial bleed, subdural, traumatic subarachnoid, skull fracture, cervical spine injury, multiple contusions Medical Decision Making: Plan for this patient x-ray chest, left shoulder, CT scan head and neck, blood work. Re-evaluation: ED CT scan head and neck without contrast for trauma head scan shows a forehead hematoma. The cervical spine shows C1 fracture. There is aspects of this fracture that appear old versus new. Given his cervical spine on CT he will be admitted to the hospitalist service for multitude of medical problems. This includes COPD, generalized weakness. And now may have a acute cervical spine fracture. Will keep him in a cervical collar. 1253: Spoke with Neurosurgery Dr. Leong will consult on the patient. Chest x-ray, left shoulder x-ray reviewed. No acute traumatic injury. COPD appearing lungs on chest x-ray. Patient be admitted to the hospitalist service for multitude of chronic medical problems which includes COPD, additionally age-indeterminate C1 fracture. Possibly acute. Neurosurgery is been consult. Patient remains in a cervical collar. Forehead hematoma. No intracranial bleed. Source: Patient, EMS - Medical/Surgical History Hx Asthma: No Hx Chronic Respiratory Disease: Yes Hx Diabetes: No Hx Cardiac Disease: No Hx Renal Disease: No Hx Cirrhosis: No Hx Alcoholism: No Hx HIV/AIDS: No Hx Splenectomy or Spleen Trauma: No Other PMH: COPD. HTN. Spinal stenosis. Hepatitis. Cognitive communication deficit. Swelling to left upper arm. - Social History Smoking Status: Unknown if ever smoked Constitutional: Initial Vital Signs Temperature (C) 36.7 C 05/12/17 23:50 Heart Rate 58 L 05/12/17 23:50 Respiratory Rate 18 05/12/17 23:50 Blood Pressure 166/110 H 05/12/17 23:50 O2 Sat (%) 89 L 05/12/17 23:50 O2 Delivery Mode Nasal Cannula O2 (L/minute) 6 Allergies/Adverse Reactions: Penicillins Allergy (Verified 05/13/17 00:04) vecuronium Allergy (Verified 05/13/17 00:04) Home Medications: Medication Instructions Recorded Acetaminophen [Tylenol 325mg (*)] 650 mg PO Q8 PRN 04/03/17 DULoxetine [Cymbalta 60 MG (*)] 60 mg PO DAILY 04/03/17 Folic Acid [Folic Acid 1 MG (*)] 1 mg PO DAILY 04/03/17 Gabapentin 600 mg PO TID 04/03/17 Herbals/Supplements -Info Only 1 ea PO DAILY 04/03/17 Multivitamins [Multivitamin (*)] 1 each PO DAILY 04/03/17 Ranitidine HCl 150 mg PO BID 04/03/17 amLODIPine BESYLATE [Norvasc 10 mg 10 mg PO DAILY 04/03/17 (*)] morphINE SR [MS Contin/Oramorph SR 30 mg PO BID 04/03/17 30 mg (*)] oxyCODONE HCL/ACETAMINOPHEN 1 each PO Q8 PRN 04/03/17 [Percocet 10-325 mg Tablet] Ipratropium/Albuterol [Duoneb (*)] 3 ml IH Q6 deyvial 04/05/17 Tamsulosin HCl [Flomax 0.4 MG (*)] 0.4 mg PO DAILY #30 cap 04/05/17 guaiFENesin [Mucinex 600 MG (*)] 1,200 mg PO BID tab.er 04/05/17 levOFLOXACIN [levAQUIN (*)] 750 mg PO DAILY #5 tab 04/05/17 Medical Decision Making - Diagnostics Imaging Results: Imaging Impressions Cervical Spine CT 05/12/17 23:54 Impression: Soft tissue hematoma in the scalp left frontal region. No evidence for skull fracture. No evidence for acute intracranial abnormality. Stable chronic findings as above. CT cervical spine without contrast. History: Fall. Trauma. Pain. Technique: 1.5 mm helical images were obtained of the cervical spine without contrast. Multiplanar reformation was performed. Radiation dose reduction technique was utilized. Findings: Severe erosive change is seen at the dens with the dens completely eroded. Erosive change is seen in the anterior arch articulation with the dens. There is pannus and debris posteriorly present significant spinal stenosis at the craniocervical junction. Degenerative change and erosive change and spurring is seen at the lateral mass articulation with C1 with the dens. Subtle nondisplaced lucency is seen in the posterior arch of C1 bilaterally. Slight sclerotic appearance and is more likely chronic than acute. No other findings for acute fracture. Postsurgical changes are seen of fusion of C3- C7. This also fusion of T1 and T2 and of T3 and T4. Degenerative disk and degenerative joint disease is seen at C2-C3 causing mild bilateral neural foraminal narrowing. Degenerative disk and degenerative joint disease is seen at C7-T1 with moderate bilateral neural foraminal narrowing. Degenerative joint and degenerative disk disease is seen at T2-T3 causing severe bilateral neural foraminal narrowing. Impression: 1. Severe erosive change at the dens and degenerative change of C1 articulation with C2 causing severe stenosis at the craniocervical junction. Also appears to be a nondisplaced fracture of the posterior arch of C1 bilateral which could be acute or chronic. 2. Multiple levels of fusion as above with degenerative disk and degenerative joint disease between the levels of fusion as above. Results called and discussed with Gabe Palacios MD at 05/13/2017 0:31. Head CT 05/12/17 23:54 Impression: Soft tissue hematoma in the scalp left frontal region. No evidence for skull fracture. No evidence for acute intracranial abnormality. Stable chronic findings as above. CT cervical spine without contrast. History: Fall. Trauma. Pain. Technique: 1.5 mm helical images were obtained of the cervical spine without contrast. Multiplanar reformation was performed. Radiation dose reduction technique was utilized. Findings: Severe erosive change is seen at the dens with the dens completely eroded. Erosive change is seen in the anterior arch articulation with the dens. There is pannus and debris posteriorly present significant spinal stenosis at the craniocervical junction. Degenerative change and erosive change and spurring is seen at the lateral mass articulation with C1 with the dens. Subtle nondisplaced lucency is seen in the posterior arch of C1 bilaterally. Slight sclerotic appearance and is more likely chronic than acute. No other findings for acute fracture. Postsurgical changes are seen of fusion of C3- C7. This also fusion of T1 and T2 and of T3 and T4. Degenerative disk and degenerative joint disease is seen at C2-C3 causing mild bilateral neural foraminal narrowing. Degenerative disk and degenerative joint disease is seen at C7-T1 with moderate bilateral neural foraminal narrowing. Degenerative joint and degenerative disk disease is seen at T2-T3 causing severe bilateral neural foraminal narrowing. Impression: 1. Severe erosive change at the dens and degenerative change of C1 articulation with C2 causing severe stenosis at the craniocervical junction. Also appears to be a nondisplaced fracture of the posterior arch of C1 bilateral which could be acute or chronic. 2. Multiple levels of fusion as above with degenerative disk and degenerative joint disease between the levels of fusion as above. Results called and discussed with Gabe Palacios MD at 05/13/2017 0:31. - Data Points Laboratory Results: Laboratory Results 05/12/17 23:56 05/12/17 23:56 05/12/17 05/12/17 05/12/17 23:56 23:56 23:56 WBC 6.00 10^3/uL 10^3/uL (3.80-9.50) RBC 5.66 10^6/uL 10^6/uL (4.40-6.38) Hgb 14.5 g/dL g/dL (13.7-17.5) Hct 45.6 % % (40.0-51.0) MCV 80.6 fL L fL (81.5-99.8) MCH 25.6 pg L pg (27.9-34.1) MCHC 31.8 g/dL L g/dL (32.4-36.7) RDW 16.4 % H % (11.5-15.2) Plt Count 246 10^3/uL 10^3/uL (150-400) MPV 8.3 fL L fL (8.7-11.7) Neut % (Auto) 55.2 % % (39.3-74.2) Lymph % (Auto) 30.5 % % (15.0-45.0) Ada % (Auto) 8.7 % % (4.5-13.0) Eos % (Auto) 4.3 % % (0.6-7.6) Baso % (Auto) 1.0 % % (0.3-1.7) Nucleat RBC Rel Count 0.0 % % (0.0-0.2) Absolute Neuts (auto) 3.31 10^3/uL 10^3/uL (1.70-6.50) Absolute Lymphs (auto) 1.83 10^3/uL 10^3/uL (1.00-3.00) Absolute Monos (auto) 0.52 10^3/uL 10^3/uL (0.30-0.80) Absolute Eos (auto) 0.26 10^3/uL 10^3/uL (0.03-0.40) Absolute Basos (auto) 0.06 10^3/uL 10^3/uL (0.02-0.10) Absolute Nucleated RBC 0.00 10^3/uL 10^3/uL (0-0.01) Immature Gran % 0.3 % % (0.0-1.1) Immature Gran # 0.02 10^3/uL 10^3/uL (0.00-0.10) PT 14.3 SEC SEC (12.0-15.0) INR 1.12 (0.83-1.16) APTT 30.2 SEC SEC (23.0-38.0) Sodium 142 mEq/L mEq/L (134-144) Potassium 4.5 mEq/L mEq/L (3.5-5.2) Chloride 103 mEq/L mEq/L (97-110) Carbon Dioxide 28 mEq/l mEq/l (22-31) Anion Gap 11 mEq/L mEq/L (8-16) BUN 17 mg/dL mg/dL (7-23) Creatinine 0.8 mg/dL mg/dL (0.7-1.3) Estimated GFR > 60 Glucose 96 mg/dL mg/dL (70-100) Calcium 9.7 mg/dL mg/dL (8.5-10.4) Magnesium 1.9 mg/dL mg/dL (1.6-2.3) Total Bilirubin 0.9 mg/dL mg/dL (0.1-1.4) Conjugated Bilirubin 0.6 mg/dL H mg/dL (0.0-0.5) Unconjugated Bilirubin 0.3 mg/dL mg/dL (0.0-1.1) AST 31 IU/L IU/L (17-59) ALT 33 IU/L IU/L (21-72) Alkaline Phosphatase 76 IU/L IU/L (38-126) Troponin I < 0.012 ng/mL ng/mL (0.000-0.034) Total Protein 8.3 g/dL H g/dL (6.3-8.2) Albumin 4.1 g/dL g/dL (3.5-5.0) Medications Given: Discontinued Medications Sodium Chloride (Ns) 500 mls @ 1,000 mls/hr IV EDNOW ONE PRN Reason: Protocol Stop: 05/13/17 00:23 Last Admin: 05/13/17 00:29 Dose: 500 mls Morphine Sulfate (Morphine) 4 mg IVP EDNOW ONE Stop: 05/13/17 01:40 Last Admin: 05/13/17 01:44 Dose: 4 mg Departure - Departure Disposition: [facility] Acute Clinical Impression: Hematoma Fall Qualifiers: Encounter type: initial encounter Qualified Code(s): W19.XXXA - Unspecified fall, initial encounter C1 cervical fracture Qualifiers: Encounter type: initial encounter Fracture type: closed Fracture morphology: unspecified fracture morphology Fracture alignment: nondisplaced Qualified Code( s): S12.001A - Unspecified nondisplaced fracture of first cervical vertebra, initial encounter for closed fracture COPD (chronic obstructive pulmonary disease) Qualifiers: COPD type: unspecified COPD Qualified Code(s): J44.9 - Chronic obstructive pulmonary disease, unspecified Condition: Fair Referrals: Patient,NotPresent [Unknown] - As per Instructions
[2017-05-13 00:03] LABS: % IMMATURE GRANULYOCYTES 0.3 % (0.0-1.1); ABSOLUTE IMMATURE GRANULOCYTES 0.02 10^3/uL (0.00-0.10); ADD DIFF? NO; ADD MORPH? NO; ADD SCAN? NO; ATYPICAL LYMPHOCYTE FLAG 20 (0-99); FRAGMENT RBC FLAG 0 (0-99); HEMATOCRIT 45.6 % (40.0-51.0); HEMOGLOBIN 14.5 g/dL (13.7-17.5); LEFT SHIFT FLG 0 (0-99); LIPEMIA HEMOLYSIS FLAG 80 (0-99); MEAN CELL HEMOGLOBIN 25.6 pg (27.9-34.1); MEAN CELL HEMOGLOBIN CONCENTR. 31.8 g/dL (32.4-36.7); MEAN CELL VOLUME 80.6 fL (81.5-99.8); MEAN PLATELET VOLUME 8.3 fL (8.7-11.7); PLATELET CLUMPS FLAG 0 (0-99); PLATELET COUNT 246 10^3/uL (150-400); RED BLOOD CELL COUNT 5.66 10^6/uL (4.40-6.38); RED CELL DISTRIBUTION WIDTH 16.4 % (11.5-15.2)
[2017-05-13 00:27] LABS: APTT 30.2 SEC (23.0-38.0); INR 1.12 (0.83-1.16); PROTIME(PATIENT) 14.3 SEC (12.0-15.0)
[2017-05-13 00:28] LABS: ALANINE AMINOTRANSFERASE 33 IU/L (21-72); ALBUMIN 4.1 g/dL (3.5-5.0); ALKALINE PHOSPHATASE 76 IU/L (38-126); ANION GAP 11 mEq/L (8-16); ASPARTATE AMINOTRANSFERASE 31 IU/L (17-59); BILIRUBIN,TOTAL 0.9 mg/dL (0.1-1.4); BILIRUBIN-CONJUGATED 0.6 mg/dL (0.0-0.5); BILIRUBIN-UNCONJUGATED 0.3 mg/dL (0.0-1.1); CALCIUM 9.7 mg/dL (8.5-10.4); CARBON DIOXIDE 28 mEq/l (22-31); CHLORIDE 103 mEq/L (97-110); CREATININE 0.8 mg/dL (0.7-1.3); GLOMERULAR FILTRATION RATE > 60; GLUCOSE 96 mg/dL (70-100); MAGNESIUM 1.9 mg/dL (1.6-2.3); POTASSIUM 4.5 mEq/L (3.5-5.2); SODIUM 142 mEq/L (134-144); TOTAL PROTEIN 8.3 g/dL (6.3-8.2)
--- NOTE | 2017-05-13 00:30 | CPEKG ---
Heart Rate: 72 RR Interval: 833 P-R Interval: 168 QRSD Interval: 96 QT Interval: 392 QTC Interval: 430 P [place]: -3 QRS [place]: 80 T Wave [place]: 4 EKG Severity - OTHERWISE NORMAL ECG - EKG Impression: SINUS RHYTHM EKG Impression: VENTRICULAR PREMATURE COMPLEX EKG Impression: LOW VOLTAGE IN FRONTAL LEADS Electronically Signed By: Gabe Palacios 13-May-2017 07:19:49
[2017-05-13 00:39] LABS: TROPONIN I < 0.012 ng/mL (0.000-0.034)
[2017-05-13] MEDS ORDERED: ACETAMINOPHEN 650 MG SUPP PR PRN (02:20)
[2017-05-13] MEDS ORDERED: ONDANSETRON DISINTEGRATING 4 MG TAB PO PRN (02:20)
[2017-05-13] MEDS ORDERED: ONDANSETRON 4 MG/2 ML VIAL IVP PRN (02:20)
[2017-05-13] MEDS: NS 1,000 ML IV SCH ×2 (03:38→19:14)
[2017-05-13] MEDS ORDERED: LORazepam 2 MG/ML INJ IVP PRN (05:35)
[2017-05-13 05:53] LABS: % IMMATURE GRANULYOCYTES 0.1 % (0.0-1.1); ABSOLUTE IMMATURE GRANULOCYTES 0.01 10^3/uL (0.00-0.10); ADD DIFF? NO; ADD MORPH? NO; ADD SCAN? NO; ATYPICAL LYMPHOCYTE FLAG 10 (0-99); FRAGMENT RBC FLAG 0 (0-99); HEMATOCRIT 47.5 % (40.0-51.0); HEMOGLOBIN 14.8 g/dL (13.7-17.5); LEFT SHIFT FLG 0 (0-99); LIPEMIA HEMOLYSIS FLAG 80 (0-99); MEAN CELL HEMOGLOBIN 25.2 pg (27.9-34.1); MEAN CELL HEMOGLOBIN CONCENTR. 31.2 g/dL (32.4-36.7); MEAN CELL VOLUME 80.8 fL (81.5-99.8); MEAN PLATELET VOLUME 8.6 fL (8.7-11.7); PLATELET CLUMPS FLAG 10 (0-99); PLATELET COUNT 253 10^3/uL (150-400); RED BLOOD CELL COUNT 5.88 10^6/uL (4.40-6.38); RED CELL DISTRIBUTION WIDTH 16.4 % (11.5-15.2)
[2017-05-13 06:09] LABS: ANION GAP 9 mEq/L (8-16); CALCIUM 9.4 mg/dL (8.5-10.4); CARBON DIOXIDE 27 mEq/l (22-31); CHLORIDE 101 mEq/L (97-110); CREATININE 0.7 mg/dL (0.7-1.3); GLOMERULAR FILTRATION RATE > 60; GLUCOSE 131 mg/dL (70-100); SODIUM 137 mEq/L (134-144)
--- NOTE | 2017-05-13 08:00 | GHP ---
[f rep st] HISTORY AND PHYSICAL DATE OF ADMISSION: 05/13/2017 PRIMARY CARE PHYSICIAN: None listed. HISTORY OF PRESENT ILLNESS: This is a 62-year-old gentleman with past medical history significant for COPD with requirement of 6 L/minute continuous oxygen, chronic respiratory failure, history of CVA with communication deficits, chronic pain, and a remote history of polysubstance abuse who presents to the emergency department today from his nursing facility following a mechanical fall that was witnessed. Patient apparently was walking down the hallway when he took a tumble. He fell forward hitting his face and knees. Patient was complaining of neck pain. Patient also at baseline has a rather unsteady gait and has had a history of multiple falls by report. On the medical floor at time of my interview, patient was essentially nonverbal , moaning intermittently. When I asked him if he had any pain, he would say yes , but unable to reply with location or specifics. REVIEW OF SYSTEMS: Unable to obtain secondary to patient's nonverbal status. ALLERGIES: Penicillin, vecuronium. HOME MEDICATIONS: As available by EMR, Percocet 10/325 one tab p.o. q.8 hours p.r.n. for pain, morphine SR 30 mg p.o. b.i.d., Levaquin 750 mg p.o. daily, Mucinex 1200 mg p.o. b.i.d., amlodipine 10 mg p.o. daily, tamsulosin 0.4 mg p.o. daily, ranitidine 150 mg p.o. b.i.d., multivitamin 1 tab p.o. daily, DuoNeb 3 mL inhaled q.6 hours p.r.n., gabapentin 600 mg p.o. t.i.d., folic acid 1 mg p.o. daily, Duloxetine 60 mg p.o. daily, Tylenol 650 mg p.o. q.8 hours p.r.n. for pain. PAST MEDICAL HISTORY: Significant for history of pneumonia, polysubstance abuse remotely, COPD on 6 L continuous oxygen, chronic respiratory failure with hypoxia, hypertension, communication deficit. PAST SURGICAL HISTORY: Unable to obtain. FAMILY HISTORY: Unable to obtain. SOCIAL HISTORY: Patient resides in a nursing facility. No known tobacco, drug , or alcohol use. CODE STATUS: No paperwork accompanies the patient today, but per review of his previous hospital stays, MOST forms were listed as full code and will try to clarify this. PHYSICAL EXAMINATION: VITAL SIGNS: Upon arrival to the ER, blood pressure 166/ 110, heart rate 58, respiratory rate 18, O2 saturation 99% on 2 L nasal cannula , temperature 36.7. Current vitals, blood pressure 156/104, heart rate is 57, respiratory rate 12, O2 saturation 92% on 5 L by nasal cannula, temperature 36.2. GENERAL: Patient without any acute distress. He is intermittently moaning when he is awoken, but otherwise resting comfortably with a C-collar in place, chronically ill, older than appearing stated age male. Has a large hematoma on the left forehead and contusion and bruising on the left eye. HEAD : Normocephalic, atraumatic as details noted above. ENT: Mucous membranes appear slightly dry. Patient is edentulous. No nasal discharge. NECK: Supple. Trachea midline. CV: Regular rate and rhythm. Slightly bradycardic without any murmurs, rubs, or gallops appreciated. RESPIRATORY: Lungs are clear to auscultation bilaterally. No wheezes, rales, or rhonchi appreciated. Full face wound. ABDOMEN: Positive bowel sounds. Soft, nontender to palpation. No rebound, guarding or masses. : Hernandez catheter in place. Normal external male gentleman. MUSCULOSKELETAL: Patient with contusion left knee, which is bandaged. Patient is able to move upper and lower extremities. He has chronic lower extremity skin changes and some edema in the bilateral lower legs. Patient with 1+ pedal pulses. Is able to move all extremities, but does not follow commands appropriately. NEUROLOGIC: Patient is nonverbal. He is able to cooperate and follow some simple commands. Moves all extremities. Grossly nonfocal, but limited secondary to patient's inability to follow instructions. PSYCH: Unable to assess at this time as patient does not respond verbally. LABORATORY STUDIES: WBC 6.0, H and H 14.5 and 45.6, MCV of 80.6, platelet count is 246. No bands. PT is 14.3, INR is 1.12, PTT is 30.2. Sodium 142, potassium 4.5, chloride 103, CO2 28, BUN 17, creatinine 0.8, GFR of greater than 60. Glucose 96, calcium 9.7, magnesium 1.9, total bilirubin 0.9, ALT is 33 , AST is 31, alkaline phosphatase is 76. Troponin is negative. Total protein 8.3, albumin is 4.1. EKG reviewed myself. It shows sinus rhythm in the 70s, PVCs, no acute ST changes. IMAGING: Chest x-ray: Image reviewed myself. Report pending. No focal consolidation. Cervical spine CT report reviewed showing severe erosive changes at the dens and degenerative change at C1 articulation with C2 causing severe stenosis at the cranial cervical junction. Also appears to be nondisplaced fracture of the posterior arch of C1 bilaterally, which could be acute or chronic. T2-3 causing degenerative joint and degenerative disk disease seen at C2-3 causing severe bilateral neural foraminal narrowing. CT head showing soft tissue hematoma of the scalp, left frontal region. No evidence of skull fracture. No acute intracranial abnormality. Stable chronic findings. ASSESSMENT AND PLAN: This is a 62-year-old gentleman with chronic hypoxia, chronic obstructive pulmonary disease, history of cerebrovascular accident who presents to the emergency department following a mechanical fall that was witnessed. 1. Neck injury showing erosive changes of the dens with associated cervical spinal stenosis and possible fracture in the C1. Neurosurgery is consulted from the emergency department. Will plan to see the patient later this morning. They have recommended an MRI. We will keep the patient n.p.o. pending completion of the study and recommendations from Neurosurgery. 2. Mechanical fall by report. Patient with unsteady gait. Bed alarm and PT, OT once cleared by Neurosurgery. 3. Fall precautions. 4. Pain due to trauma. Morphine p.r.n. At this time, patient will be n.p.o. 5. Chronic respiratory failure with hypoxia. Continue with supplemental oxygen. 6. Chronic obstructive pulmonary disease. Nebs p.r.n. No evidence of exacerbation. 7. Communication deficits. At this time, patient only responded yes to 1 of my answers, otherwise remained nonverbal. By review of previous record, it appears that this could be close to patient's baseline, but will continue to monitor. 8. Benign essential hypertension. Continue amlodipine if tolerated. 9. Fluid, electrolyte, nutrition. IV fluids overnight. Electrolyte replacement if needed. Patient will be n.p.o. for now, pending MRI report. 10. Prophylaxis. Sequential compression devices. Holding anticoagulation pending neurosurgery recommendations. 11. Code status is full based on previous records only to clarify an update during this hospital stay. DISPOSITION: Patient will be admitted to inpatient status given severity of injury and need for acute rehab services. The patient has been admitted to the medical floor. /[id number]/MODL MTDD
[2017-05-13] MEDS ORDERED: ALTEPLASE 2 MG VIAL IVP PRN (08:46)
--- NOTE | 2017-05-13 08:51 | HOSPPROG ---
Hospitalist Progress Note Assessment/Plan: Patient is a 62 y/o male who fell at nursing facility/ he sustained a poss fx to C1/ has a hard collar in place. Admitted earlier by Dr Keita. Came by to see patient, has no iv access, multiple attempts made by nursing staff. Will order a single lumen PICC/ needs an MRI for further evaluation of his neck. *Poss C1 fx -reviewed his care with Dr. Mike Hastings -he needs to get an MRI for further evaluation to see if this is acute versus chronic -CT shows severe erosive changes at the dens and degenerative changes of C1 articulation was C2 causing severe stenosis at the craniocervical junction, there also appears to be a nondisplaced fracture of the posterior arch of C1 bilaterally which could be acute or chronic * mechanical fall -will await further information from Neurosurgery before starting physical therapy and occupational therapy * abdominal pain -has some vague symptoms in both lower quadrants will get a x-ray initially * scalp hematoma on the left frontal area without evidence of skull fracture -nursing staff applying ice p.r.n. * history of CVA with communication deficits -during my evaluation he was only oriented to himself, I am unclear what his baseline is * COPD -no evidence of exacerbation, continue oxygen p.r.n. * remote history of polysubstance abuse including methamphetamines -will monitor for signs or symptoms of withdrawals * the history of chronic pain on continuous chronic opioids -have not resumed his home medications, have written orders for p.r.n. morphine and Ativan * questionable swallowing difficulties -speech therapy to see * plan. Will allow the patient to eat after speech therapy sees him. Greater than 30 minutes seeing the patient and following up with his care. To get a PICC line in place. Nursing staff to watch him closely with his history of methamphetamine use. There was a sitter outside his room. In addition will follow up with MRI and abdominal study Subjective: Flako is c/o all over pain but moreso in his abdomen. Objective: Vital Signs Temp Pulse Resp BP Pulse Ox 36.3 C 65 22 H 163/119 H 94 05/13/17 07:49 05/13/17 07:49 05/13/17 07:49 05/13/17 07:49 05/13/17 07:49 Laboratory Results 05/13/17 04:34 05/13/17 04:34 05/12/17 05/13/17 05/14/17 05:59 05:59 05:59 Intake Total 500 Output Total 1600 Balance -1100 PT 14.3 SEC (12.0-15.0) 05/12/17 23:56 INR 1.12 (0.83-1.16) 05/12/17 23:56 - Physical Exam Constitutional: chronically ill appearing, uncomfortable, No no apparent distress, No not in pain Eyes: PERRL Ears, Nose, Mouth, Throat: hearing normal, dry mucous membranes, other (collar in place) Cardiovascular: regular rate and rhythym Respiratory: no respiratory distress Gastrointestinal: normoactive bowel sounds, tenderness (both lower quadrants), No guarding, No rebound, No distension Skin: other (large hematoma on left forehead area, left eye with ecchymosis) Neurologic: other (alert,only oriented to himself) Psychiatric: agitated, poor insight, poor judgement, poor memory ICD10 Worksheet Patient Problems: Problems Problem Status Onset C1 cervical fracture Acute COPD (chronic obstructive pulmonary disease) Acute Fall Acute Hematoma Acute Chronic disease [facility]/Transitional care Acute Hypoxia Acute Pneumonia Acute
--- NOTE | 2017-05-13 14:02 | GCON ---
[f rep st] CONSULTATION NEUROSURGERY CONSULTATION. CHIEF COMPLAINT: Back pain. HISTORY OF PRESENT ILLNESS: This is a 62-year-old male who fell at a nursing facility ([facility]). He sustained a possible fracture of the C1, and has a hard cervical collar currently in place for this. It is hard to get a full history and physical on the patient as we currently do not have records from [facility], and the patient is currently very hard to understand and is relatively nonverbal. He is also not alert or oriented to person, place, or situation. He is, however, following all commands. The history is largely gathered from his electronic medical record today. 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 The patient was placed in a collar. Currently, he is answering some questions for me, and does state that he has neck pain. REVIEW OF SYSTEMS: Unable to fully obtain at this time due to patient's mental status. PAST MEDICAL HISTORY: Unable to fully obtain due to patient's mental status. However, the patient does reside at [facility]. He does have a history of methamphetamine abuse, and is reported to be currently still using this drug as well. PAST SURGICAL HISTORY: Unable to obtain due to the patient's mental status. ALLERGIES: To penicillins and vecuronium. OBJECTIVE: VITAL SIGNS: Blood pressure 159/98, heart rate 71, respiratory rate 20, O2 saturation is 94% on 4 L nasal cannula. Temperature is 36.7 degrees Celsius. HEENT: Head is normocephalic, atraumatic. Patient does have an abrasion over the left cheek and around his left eye. I understand the patient does have pretty much a lack of dentition. NEUROLOGIC: Cranial nerves 2-12 are grossly intact. Pupils are equal and reactive to light and accommodation. His extraocular muscles are intact. Tongue protrusion is midline. Motor: Unable to fully assess due to patient's mental status, but does follow commands to raise both of his arms and moves both of his legs with equal strength. Deep tendon reflexes are 2+ bilaterally in the biceps, brachioradialis, Achilles, and patellae. He has negative Kevin 's bilaterally and negative clonus, and toes are downgoing. Sensation is intact to light touch. Neck: Patient is mildly tender to palpation over the mid cervical spine. A hard cervical collar is in place. The collar does appear to be too large for the patient and needs to be refitted. LABORATORY DATA: Taken on 05/13/2017 revealed a white blood cell count of 7.49 , a red blood cell count 5.88, hemoglobin 14.8, hematocrit 47.5, platelets 253. PT 14.3, INR 1.12, APTT 30.2. A sodium 137, potassium 4.0, chloride 101, carbon dioxide 27, anion gap 9, BUN 13, creatinine 0.7, GFR greater than 60, glucose 131. DIAGNOSTIC IMAGING: A cervical CT of the spine was performed without contrast, and shows severe erosive changes of the dens and degenerative changes of C1 articulation with C2 causing severe stenosis at the craniocervical junction. Also appears to be a nondisplaced fracture of the posterior arch of C1 bilateral which could be acute or chronic. A CT of the head without contrast was performed and shows soft tissue hematoma in the scalp, left frontal region. No evidence for skull fracture. No evidence for acute intracranial abnormality. A shoulder x-ray was performed that shows left shoulder negative for fracture. A chest x-ray was performed that shows lung volumes remain low with slight increase, and indistinct bilateral air basilar opacities. There is no pneumothorax or appreciable pleural effusion. Heart size is upper normal, and bones are stable. ASSESSMENT AND PLAN: This is a 62-year-old male, currently living at [facility] with history of methamphetamine use, who presents after a fall with neck pain. CT of the cervical spine shows a possible posterior arch fracture of C1 that could be acute or chronic. It also shows severe erosive changes of the dens and degenerative changes of C1 articulation with C2 causing severe stenosis of the craniocervical junction. Neurosurgery recommends an MRI of the cervical spine. However, given the patient's lack of family members to provide history for him as well as lack of records currently available to us, we are unable to get the MRI at this time but will work on getting his records in order to obtain this. In terms of his overall treatment plan, would recommend staying in a collar at this time. Due to the patient's overall mental status, history of drug abuse, social issues, and mental status at this time, he is not a great surgical candidate at this time. His exam, while hard to fully get a great exam, is neuro intact, and he lacks any signs of myelopathy at this time. He is moving all of his extremities, and is equal in strength in all 4 of his extremities as well. He does have spasticity of his RUE. We will consult [facility] to reset his collar as it does appear to be too large for him. We will also work on getting more medical records for this patient so as to move forward in getting an MRI of the cervical spine when able. Neurosurgery will continue to follow this patient. The patient will be staffed by Dr. Jesus Manuel Aragon later today as well. He did stop by and try to see the patient earlier, however, he was down getting his percutaneously inserted central catheter line. We appreciate this consultation. We will continue to follow. NEUROSURGERY STAFF: I have discussed this case at length with the primary team (Dr. Turner) as well as three of my partners. The MRI was done and does show severe compression of the cord at the craniocervical junction. I am not sure that this is actually symptomatic. He has spasticity of the left arm, but this may be from a previous infarct. He does not have overt signs of myelopathy. It would require occiput to lower cervical for decompression and fusion on top of his multilevel ACDF that he already has (in kyphosis). I really do not think at this point that he is a surgical candidate, nor did any of my partners. He has a long, documented history at [facility] of being non- compliant and leaving the facility for drug use. I think that chances of him healing an occipitocervical fusion are near nil. Palliative care is involved in trying to determine his wishes and move forward. For now, I think a cervical collar will help with some of his pain and we can reassess in a few days if he is more lucid. Jesus Manuel Aragon MD, POLINA /[id number]/MODL MTDD
[2017-05-13] MEDS: LORazepam 2 MG/ML INJ IVP PRN ×2 (14:45→20:39)
--- NOTE | 2017-05-13 14:54 | PDMN ---
Medical Necessity Medical necessity: est los >2 mn for possible C1 fx r/t fall, hard collar in place, awaiting MRI; comorbid COPD, chronic resp fail & hypoxia, htn, nonverbal communication deficit, unsteady gait & hx methamphetamine use; per H&P & order 05/13/17
[2017-05-13] MEDS: IPRATROPIUM/ALBUTEROL 3 ML DEYVIAL IH SCH ×2 (16:13→23:49)
[2017-05-13] MEDS: GABAPENTIN 300 MG CAP PO SCH ×2 (16:20→20:12)
[2017-05-13] MEDS: DULoxetine 60 MG CAP PO SCH (16:20)
[2017-05-13] MEDS: FAMOTIDINE 20 MG TAB PO SCH (20:11)
[2017-05-13] MEDS: guaiFENesin 600 MG TAB.ER PO SCH (20:11)
[2017-05-13] MEDS ORDERED: NON-FORMULARY NEW DRUG (Ranitidine Hcl [Ranitidine Hcl] 150 MG) PO SCH (21:00)
[2017-05-14] MEDS: LORazepam 2 MG/ML INJ IVP PRN (02:29)
[2017-05-14] MEDS: IPRATROPIUM/ALBUTEROL 3 ML DEYVIAL IH SCH ×4 (05:24→23:07)
[2017-05-14] MEDS: NS 1,000 ML IV SCH (06:33)
--- NOTE | 2017-05-14 08:36 | NEUSURGPN ---
Assessment/Plan: A: 62 yo M admitted after fall w/ hx of meth use, cva, multiple medical issues. Has C1 fx, erosive changes at C2, severe stenosis. Plan: -In cervical collar, to have new better fitting collar brought in by metal ceiling hanger -MRI C spine reviewed with Dr. Aragon, multiple areas of stenosis -Does not appear myelopathic on examination but has increased tone in his left arm - it is unclear how long he has had this/if it is a result of prior CVA? -Dr Aragon D/w Seven Turner NP and will get palliative care involved -Patient is a poor surgical candidate -D/w Dr Aragon. NS will continue to follow, call NS with any questions Subjective: Pt resting in bed, c/o neck pain. Objective: Awake and alert Muffled speech, answers appropriately Follows commands in RUE and BLE LUE with increased tone and in extension Urinary Catheter in Place: No - Physician Discussed Patient with Dr.: Aragon Neurosurgery Physical Exam - Vitals, I&O, Labs I and O 05/13/17 05/14/17 05/15/17 05:59 05:59 05:59 Intake Total 500 760 Output Total 1600 2049 Balance -1100 -1290 Weight 72.5 kg Intake: Oral (ml) 0 IV Infused (ml) 500 760 Ns 1,000 ml @ 75 mls/hr 760 IV CONT JORDAN Rx#: [id number] Output: Urine (ml) 1599 2049 Catheter 1599 2049 Other: Intake Quantity No Sufficient Vital Signs Temp Pulse Resp BP Pulse Ox 36.7 C 63 12 167/112 H 98 05/14/17 07:57 05/14/17 07:57 05/14/17 07:57 05/14/17 07:57 05/14/17 07:57 Laboratory Results 05/13/17 04:34 05/13/17 04:34 ICD10 Worksheet Patient Problems: Problems Problem Status Onset C1 cervical fracture Acute COPD (chronic obstructive pulmonary disease) Acute Fall Acute Hematoma Acute Chronic disease mgmt/Transitional care Acute Hypoxia Acute Pneumonia Acute
[2017-05-14] MEDS: LISINOPRIL 20 MG TAB PO SCH (09:42)
[2017-05-14] MEDS: GABAPENTIN 300 MG CAP PO SCH ×3 (09:43→21:44)
[2017-05-14] MEDS: DULoxetine 60 MG CAP PO SCH (09:48)
[2017-05-14] MEDS: TAMSULOSIN HCL 0.4 MG CAP PO SCH (09:50)
[2017-05-14] MEDS: FAMOTIDINE 20 MG TAB PO SCH ×2 (10:30→21:44)
[2017-05-14] MEDS: guaiFENesin 600 MG TAB.ER PO SCH ×2 (10:31→21:45)
[2017-05-14] MEDS: MULTIVITAMINS 1 EACH TAB PO SCH (10:31)
[2017-05-14] MEDS: FOLIC ACID 1 MG TAB PO SCH (10:31)
--- NOTE | 2017-05-14 11:45 | ASMTCMCOM ---
CM Note CM Note Notes: Spoke w/Jayla at [facility], pt lives there after cva and has speech deficits, pt fell at and injured his neck. Pt is current w/[facility], call Manuel ([phone]) with any questions. Per dr Jayla at ordered hospice shortly before fall. A palliatve consult was ordered here before knowing he was already current with [facility], pt needs high risk sx for cervical fx, Patricia from the palliative team working w/CM and pt for next steps. Date Signed: 05/14/2017 11:44 AM Electronically Signed By:Harriet Smart RN
--- NOTE | 2017-05-14 12:36 | HOSPPROG ---
Hospitalist Progress Note Assessment/Plan: Patient is a 62 y/o male who fell at nursing facility/ he sustained a poss fx to C1/ has a hard collar in place. *C1 fx/erosive changes at C2 -reviewed his care with Dr. Aragon -would need surgery for stabilization, but not clear if patient has been w hospice, etc -Palliative care team spoke to the doctor who had seen Flako recently/ he had significant neck pain at that time/ has refused surgery in the past and doesn't want " to go under the Knife"/ mainly wants his pain controlled -goal is to find a proxy/ he has a brother in the [place] area -keep the hard collar in place * mechanical fall -will await further information from Neurosurgery before starting physical therapy and occupational therapy * abdominal pain -none further * scalp hematoma on the left frontal area without evidence of skull fracture -nursing staff applying ice p.r.n. * history of CVA with communication deficits -during my evaluation he was only oriented to himself, -will stop iv Ativan and morphine and resume his home long acting dose * COPD -no evidence of exacerbation, continue oxygen p.r.n. * remote history of polysubstance abuse including methamphetamines -will monitor for signs or symptoms of withdrawals * the history of chronic pain on continuous chronic opioids -will resume his home medications of long acting morphine but half the dose/ instructed not to give if sedate * questionable swallowing difficulties -speech therapy ok'd for dyphasia diet * plan. Goal is to find his proxy/ per previous doctor, patient has never wanted surgery, but pain management. Will resume home pain meds but lower dose to see if he can be more lucid to discuss options. Of note, his [place] [employer] form is full code. Subjective: Flako is not c/o pain. Objective: Vital Signs Temp Pulse Resp BP Pulse Ox 36.8 C 64 20 138/99 H 93 05/14/17 11:19 05/14/17 11:19 05/14/17 11:19 05/14/17 11:19 05/14/17 11:19 Laboratory Results 05/13/17 04:34 05/13/17 04:34 05/13/17 05/14/17 05/15/17 05:59 05:59 05:59 Intake Total 500 760 Output Total 1600 2050 775 Balance -1100 -4230 -775 PT 14.3 SEC (12.0-15.0) 05/12/17 23:56 INR 1.12 (0.83-1.16) 05/12/17 23:56 - Physical Exam Constitutional: chronically ill appearing, unkempt, other (thin) Eyes: other (left eye w ecchymosis) Ears, Nose, Mouth, Throat: hearing normal Cardiovascular: regular rate and rhythym Respiratory: no respiratory distress, reduced air movement (mid lobes down) Gastrointestinal: soft, non-tender abdomen, no palpable masses Skin: warm Musculoskeletal: generalized weakness Neurologic: other (alert and only oriented to himself) Psychiatric: interacting appropriately, poor judgement, poor memory ICD10 Worksheet Patient Problems: Problems Problem Status Onset C1 cervical fracture Acute COPD (chronic obstructive pulmonary disease) Acute Fall Acute Hematoma Acute Palliative care encounter Acute Chronic disease mgmt/Transitional care Acute Hypoxia Acute Pneumonia Acute
[2017-05-14] MEDS: ACETAMINOPHEN 325 MG TAB PO PRN (14:00)
--- NOTE | 2017-05-14 15:19 | PDPCPN ---
Palliative Care Progress Note Assessment/Plan: Referring provider: Chinyere Turner Reason for consult: Complex medical decision making Symptom control HPI: Flako Evans is a 62 yo with PMH COPD, CVA, meth use, and chronic back pain admitted to the hospital from [facility] s/p mechanical fall and subsequent neck pain. Found to have severe C2 stenosis as well as possible acute vs chronic C1 fracture requiring hard collar and possible surgical intervention. Palliative care consulted for complex medical decision making. Flako seen this afternoon, he was given ativan and morphine earlier for pain and is now unable to participate in a conversation. He mumbled sometimes to questions but did not know where he was or what was going on. Per facesheet from [facility] next of kin is Dee but unable to contact. Spoke with PCP Dr Pressley over the phone who provided more history for Flako. He states he has seen him in the past and at baseline is very lucid and able to have conversations about his wishes. He was recently seen by his outpt slackman wednesday who had a good conversation with him about his chronic neck pain. He moved to 11/2016 after hospitalization at [facility], prior to this was homeless. He has a brother who lives in [place] but estranged from him. Recently both his mother and sister which he was sad about. He has chronic neck pain and was referred for neurosurgical intervention but has always stated he did not want any surgery but still wanted relief of his pain. He was even referred to the [place] for follow up which he did not follow through with. He has always stated his goals were for pain relief and to "get better" to live on the streets again. His slackman saw him and wrote for a hospice order/ consult as he was being followed by [facility] palliative care for relief of his chronic pain. This hospice order and consult were never completed before he was admitted though. His outpt providers have stated and are all in agreement he is a very poor surgical candidate. has been trying to trying to contact his friend who they state is also homeless many times without success. Per his PCP he still is an active meth user and often leaves to go outside for meth. His ultimate goal is for more pain relief with more pain medication per his PCP. Assessment: Physical: - Pain: chronic neck pain -on chronic morphine now on morphine IV PRN - on cymbalta and gabapentin - tylenol PRN - Dyspnea: chronic COPD - oxygen as needed - nebs - on mucinex scheduled - constipation - at risk on opiates continues bowel regimen with senna and colace Emotional/psychological: Acute confusion: due to MMP - continue normal schedule - reassure Advanced Care Planning: Is patient decisional?: no Code Status: Full- per MOST form PODavid: no proxy or known MDPOA Plan: Will need to work on proxy but previously was alert enough to make his own decisions. Seems like prior decisions have been no surgery but wants relief for neck pain as well as to "get better" to live on the streets again. Subjective: mumbles words Objective: Social History: Was previously homeless prior to 11/2016 after hospitalization at [facility]. Enjoys gardening, fishing, and animals. 1 brother who he is estranged from lives in [place] Medication list reviewed ROS: unable to obtain Functional assessment: PPS: 30% Functional status:dependent on ADLs, IADLs Vital Signs Temp Pulse Resp BP Pulse Ox 36.8 C 64 20 138/99 H 93 05/14/17 11:19 05/14/17 11:19 05/14/17 11:19 05/14/17 11:19 05/14/17 11:19 Laboratory Results 05/13/17 04:34 05/13/17 04:34 05/13/17 05/14/17 05/15/17 05:59 05:59 05:59 Intake Total 500 760 Output Total 1600 2050 775 Balance -1100 -1290 -775 PT 14.3 SEC (12.0-15.0) 05/12/17 23:56 INR 1.12 (0.83-1.16) 05/12/17 23:56 Physical Exam - Physical Exam General Appearance: mild distress, other (mumbles words) Respiratory: No respiratory distress, No accessory muscle use Skin: normal color, warm/dry Extremities: No pedal edema Neuro/Psych: other (not very arousable) ICD10 Worksheet Patient Problems: Problems Problem Status Onset C1 cervical fracture Acute COPD (chronic obstructive pulmonary disease) Acute Fall Acute Hematoma Acute Palliative care encounter Acute Chronic disease mgmt/Transitional care Acute Hypoxia Acute Pneumonia Acute - ICD10 Problem Qualifiers (1) Palliative care encounter
[2017-05-14] MEDS ORDERED: morphINE SR 15 MG TAB PO SCH (21:00)
[2017-05-14] MEDS ORDERED: NALOXONE HCL 0.4 MG/ML INJ IVP PRN (22:41)
[2017-05-15] MEDS: ACETAMINOPHEN 325 MG TAB PO PRN ×3 (00:57→21:05)
--- NOTE | 2017-05-15 03:06 | HOSPPROG ---
Hospitalist Progress Note Assessment/Plan: Hospitalist Night float note Paged by RN regarding patient with episodes of hypoxia and decreased responsiveness. PAtient with witnessed apneic episodes while sleeping. Since admission patient has been mostly nonverbal and intermittently moaning to communicate. Has been receiving multiple pain medications including morphine, oxy. Arrived to bedside and patient somnolent, snoring. apneic episodes observed. Patient O2 saturation however in the 90s. BPs acceptable at this time. Patient will open eyes for just a few moments with significant attempt to wake him but falls back asleep. remains nonverbal and only moans intermittently. narcan ordered prn. O2 sat now improved will monitor closely on remote tele/pulse ox. decrease narcotics further and holding for somnolence. Objective: Vital Signs Temp Pulse Resp BP Pulse Ox 37.1 C 70 16 136/95 H 92 05/15/17 02:59 05/15/17 02:59 05/14/17 22:59 05/15/17 02:59 05/15/17 02:59 Laboratory Results 05/13/17 04:34 05/13/17 04:34 05/13/17 05/14/17 05/15/17 05:59 05:59 05:59 Intake Total 500 760 Output Total 1600 2050 1325 Balance -1100 -1290 -1325 PT 14.3 SEC (12.0-15.0) 05/12/17 23:56 INR 1.12 (0.83-1.16) 05/12/17 23:56 ICD10 Worksheet Patient Problems: Problems Problem Status Onset C1 cervical fracture Acute COPD (chronic obstructive pulmonary disease) Acute Fall Acute Hematoma Acute Palliative care encounter Acute Chronic disease mgmt/Transitional care Acute Hypoxia Acute Pneumonia Acute
[2017-05-15] MEDS: IPRATROPIUM/ALBUTEROL 3 ML DEYVIAL IH SCH ×4 (05:42→22:07)
[2017-05-15] MEDS: DULoxetine 60 MG CAP PO SCH (08:11)
[2017-05-15] MEDS: FAMOTIDINE 20 MG TAB PO SCH ×2 (08:11→21:05)
[2017-05-15] MEDS: FOLIC ACID 1 MG TAB PO SCH (08:11)
[2017-05-15] MEDS: ENOXAPARIN 40 MG/0.4 ML SYR SC SCH (08:11)
[2017-05-15] MEDS: guaiFENesin 600 MG TAB.ER PO SCH ×2 (08:11→21:05)
[2017-05-15] MEDS: MULTIVITAMINS 1 EACH TAB PO SCH (08:11)
[2017-05-15] MEDS: GABAPENTIN 300 MG CAP PO SCH ×3 (08:11→21:05)
[2017-05-15] MEDS: LISINOPRIL 20 MG TAB PO SCH (08:12)
[2017-05-15] MEDS: TAMSULOSIN HCL 0.4 MG CAP PO SCH (08:27)
--- NOTE | 2017-05-15 08:37 | NEUSURGPN ---
Assessment/Plan: A: 62 yo M admitted after fall w/ hx of meth use, cva, multiple medical issues. Has C1 fx, erosive changes at C2, severe stenosis. Plan: -In cervical collar, -MRI C spine reviewed with Dr. Aragon, multiple areas of stenosis -Does not appear myelopathic on examination but has increased tone in his left arm - it is unclear how long he has had this/if it is a result of prior CVA? -Appreciate Palliative care consultation, Patient is a poor surgical candidate -Agree with medicien recommendation of limitation of Narcotic given his apenic episodes and somnolence over night -D/w Dr Aragon. NS will continue to follow, call NS with any questions Subjective: Resting comfortably.Non verbal Objective: [id number] is not fully following commands this morning. - Physician Discussed Patient with : Mahesh Neurosurgery Physical Exam - Vitals, I&O, Labs I and O 05/14/17 05/15/17 05/16/17 05:59 05:59 05:59 Intake Total 760 Output Total 2049 1674 Balance -1290 -167 Weight 72.8 kg Intake: Oral (ml) 0 IV Infused (ml) 760 Ns 1,000 ml @ 75 mls/hr 760 IV CONT JORDAN Rx#: [id number] Output: Urine (ml) 2049 1674 Catheter 2049 1674 Other: Intake Quantity No Sufficient Number of Stools Catheter 1 Vital Signs Temp Pulse Resp BP Pulse Ox 37.1 C 84 20 155/108 H 93 05/15/17 07:32 05/15/17 07:32 05/15/17 07:32 05/15/17 07:32 05/15/17 07:32 Laboratory Results 05/13/17 04:34 05/13/17 04:34 ICD10 Worksheet Patient Problems: Problems Problem Status Onset C1 cervical fracture Acute COPD (chronic obstructive pulmonary disease) Acute Fall Acute Hematoma Acute Palliative care encounter Acute Chronic disease mgmt/Transitional care Acute Hypoxia Acute Pneumonia Acute
--- NOTE | 2017-05-15 09:43 | HOSPPROG ---
Hospitalist Progress Note Assessment/Plan: Patient is a 62 y/o male who fell at nursing facility/ he sustained a poss fx to C1/ has a hard collar in place. *C1 fx/erosive changes at C2 -patient is up in the chair. He does not want surgery at this time. Explained he will need to leave the hard collar in place * mechanical fall -will await further information from Neurosurgery before starting physical therapy and occupational therapy * abdominal pain -none further * scalp hematoma on the left frontal area without evidence of skull fracture -improving * acute encephalopathy -secondary from narcotic use. His narcotics having decreased * history of CVA with communication deficits -he is much more conversant today, is alert and oriented to where he is * COPD -no evidence of exacerbation, continue oxygen p.r.n. * remote history of polysubstance abuse including methamphetamines -will monitor for signs or symptoms of withdrawals * the history of chronic pain on continuous chronic opioids -oral MS Contin p.r.n. has been added * questionable swallowing difficulties -speech therapy ok'd for dyphasia diet * DVT prophylaxis. Low molecular weight heparin * plan. Continue supportive care. Appreciate neurosurgery is involvement. Will ask them when he needs further follow up with them. And will address if they can estimate how long he will need the hard collar Subjective: Flako is having no complaints of pain. feeling well Objective: Vital Signs Temp Pulse Resp BP Pulse Ox 37.1 C 84 20 155/108 H 5 L 05/15/17 07:32 05/15/17 07:32 05/15/17 07:32 05/15/17 07:32 05/15/17 08:42 Laboratory Results 05/13/17 04:34 05/13/17 04:34 05/14/17 05/15/17 05/16/17 05:59 05:59 05:59 Intake Total 760 Output Total 2049 1675 Balance -1290 -1675 PT 14.3 SEC (12.0-15.0) 05/12/17 23:56 INR 1.12 (0.83-1.16) 05/12/17 23:56 - Physical Exam Constitutional: chronically ill appearing Eyes: other (Left eye area with ecchymosis surrounding. Has a left sided scalp hematoma.) Ears, Nose, Mouth, Throat: hearing normal Cardiovascular: regular rate and rhythym Respiratory: no respiratory distress, reduced air movement Gastrointestinal: normoactive bowel sounds Musculoskeletal: generalized weakness Neurologic: other (He is alert and oriented to himself and place) Psychiatric: interacting appropriately, not anxious ICD10 Worksheet Patient Problems: Problems Problem Status Onset C1 cervical fracture Acute COPD (chronic obstructive pulmonary disease) Acute Fall Acute Hematoma Acute Palliative care encounter Acute Chronic disease mgmt/Transitional care Acute Hypoxia Acute Pneumonia Acute
[2017-05-16] MEDS: IPRATROPIUM/ALBUTEROL 3 ML DEYVIAL IH SCH ×4 (05:26→22:33)
[2017-05-16] MEDS: ACETAMINOPHEN 325 MG TAB PO PRN ×3 (06:09→21:47)
[2017-05-16] MEDS: FOLIC ACID 1 MG TAB PO SCH (07:53)
[2017-05-16] MEDS: GABAPENTIN 300 MG CAP PO SCH ×3 (07:53→21:47)
[2017-05-16] MEDS: MULTIVITAMINS 1 EACH TAB PO SCH (07:53)
[2017-05-16] MEDS: ENOXAPARIN 40 MG/0.4 ML SYR SC SCH (07:53)
[2017-05-16] MEDS: LISINOPRIL 20 MG TAB PO SCH (07:53)
[2017-05-16] MEDS: DULoxetine 60 MG CAP PO SCH (07:53)
[2017-05-16] MEDS: FAMOTIDINE 20 MG TAB PO SCH ×2 (07:53→21:47)
[2017-05-16] MEDS: guaiFENesin 600 MG TAB.ER PO SCH ×2 (07:54→21:47)
[2017-05-16] MEDS: TAMSULOSIN HCL 0.4 MG CAP PO SCH (07:54)
--- NOTE | 2017-05-16 12:51 | HOSPPROG ---
Hospitalist Progress Note Assessment/Plan: Patient is a 62 y/o male who fell at nursing facility/ he sustained a poss fx to C1/ has a hard collar in place. *C1 fx/erosive changes at C2 -patient is more alert and oriented -wants to discuss with neurosurgery his options -he's a poor candidate for surgery * mechanical fall -PT and OT seeing * abdominal pain -none further * scalp hematoma on the left frontal area without evidence of skull fracture -improving * acute encephalopathy -resolved/ have decrease his home doses of narcotics -alert and oriented to year, condition, and himself * history of CVA with communication deficits -he is much more conversant today, * COPD -no evidence of exacerbation, continue oxygen p.r.n. * remote history of polysubstance abuse including methamphetamines -will monitor for signs or symptoms of withdrawals * the history of chronic pain on continuous chronic opioids -oral MS p.r.n. has been added * questionable swallowing difficulties -speech therapy ok'd for dyphasia diet * DVT prophylaxis. Low molecular weight heparin * plan. await input from neurosurgery/ patient wants to discuss his options. Will give him a liter of fluids/ not drinking much. Subjective: bre is not c/o pain/ wants a sprite. Objective: Vital Signs Temp Pulse Resp BP Pulse Ox 36.9 C 64 18 156/95 H 99 05/16/17 12:00 05/16/17 12:00 05/16/17 12:00 05/16/17 12:00 05/16/17 12:00 Laboratory Results 05/13/17 04:34 05/13/17 04:34 05/15/17 05/16/17 05/17/17 05:59 05:59 05:59 Intake Total 680 360 Output Total 1675 800 Balance -1675 -120 360 PT 14.3 SEC (12.0-15.0) 05/12/17 23:56 INR 1.12 (0.83-1.16) 05/12/17 23:56 - Physical Exam Constitutional: not in pain, chronically ill appearing Eyes: PERRL Ears, Nose, Mouth, Throat: hearing normal, poor dentition, other (hard collar in place) Respiratory: no respiratory distress, reduced air movement Skin: warm, other (ecchymosis around left eye area) Musculoskeletal: generalized weakness Neurologic: AAOx3 Psychiatric: interacting appropriately, not encephalopathic ICD10 Worksheet Patient Problems: Problems Problem Status Onset C1 cervical fracture Acute COPD (chronic obstructive pulmonary disease) Acute Fall Acute Hematoma Acute Palliative care encounter Acute Chronic disease mgmt/Transitional care Acute Hypoxia Acute Pneumonia Acute
[2017-05-16] MEDS ORDERED: D5W 1/2 NS 1,000 ML IV SCH (13:00)
--- NOTE | 2017-05-16 14:43 | NEUSURGPN ---
Assessment/Plan: A: 62 yo M admitted after fall w/ hx of meth use, cva, multiple medical issues. Has C1 fx, erosive changes at C2, severe stenosis. Plan: -In cervical collar, continue at all times. -MRI C spine reviewed with Dr. Aragon, multiple areas of stenosis -Does not appear myelopathic on examination but has increased tone in his left arm - it is unclear how long he has had this/if it is a result of prior CVA -Appreciate Palliative care consultation, Patient is a poor surgical candidate -D/w Dr Aragon. NS will continue to follow, call NS with any questions Subjective: posterior neck pain. Objective: MAEx4 squuezes hands bilaterally, wiggles toes. - Physician Discussed Patient with : Mahesh Neurosurgery Physical Exam - Vitals, I&O, Labs I and O 05/15/17 05/16/17 05/17/17 05:59 05:59 05:59 Intake Total 680 360 Output Total 1675 800 Balance -1675 -120 360 Weight 65.6 kg Intake: Oral (ml) 680 360 Output: Urine (ml) 1675 800 Catheter 1675 800 Other: Intake Quantity Yes Sufficient Number of Voids Toilet 1 Number of Stools Bedside Commode 1 Catheter 1 Toilet 1 1 Bladder Scan Volume (ml) Bedside Commode 208 Catheter 439 Toilet 439 366 Vital Signs Temp Pulse Resp BP Pulse Ox 36.9 C 64 18 156/95 H 99 05/16/17 12:00 05/16/17 12:00 05/16/17 12:00 05/16/17 12:00 05/16/17 12:00 Laboratory Results 05/13/17 04:34 05/13/17 04:34 ICD10 Worksheet Patient Problems: Problems Problem Status Onset C1 cervical fracture Acute COPD (chronic obstructive pulmonary disease) Acute Fall Acute Hematoma Acute Palliative care encounter Acute Chronic disease mgmt/Transitional care Acute Hypoxia Acute Pneumonia Acute
--- NOTE | 2017-05-16 18:27 | ASMTCMCOM ---
CM Note CM Note Notes: Patient more alert and oriented today and interested in talking to Neurosurg. Perhaps Palliative will have a better chance in talking with him Wednesday. Patient needs to name a MPOA. Date Signed: 05/16/2017 06:27 PM Electronically Signed By:Rut Marquez LCSW
[2017-05-17] MEDS: IPRATROPIUM/ALBUTEROL 3 ML DEYVIAL IH SCH ×2 (05:33→10:56)
[2017-05-17 05:45] LABS: ALANINE AMINOTRANSFERASE 27 IU/L (21-72); ALBUMIN 3.4 g/dL (3.5-5.0); ALKALINE PHOSPHATASE 61 IU/L (38-126); ANION GAP 10 mEq/L (8-16); ASPARTATE AMINOTRANSFERASE 23 IU/L (17-59); BILIRUBIN,TOTAL 0.9 mg/dL (0.1-1.4); CALCIUM 9.5 mg/dL (8.5-10.4); CARBON DIOXIDE 31 mEq/l (22-31); CHLORIDE 101 mEq/L (97-110); CREATININE 0.6 mg/dL (0.7-1.3); GLOMERULAR FILTRATION RATE > 60; GLUCOSE 88 mg/dL (70-100); POTASSIUM 3.8 mEq/L (3.5-5.2); SODIUM 142 mEq/L (134-144); TOTAL PROTEIN 7.2 g/dL (6.3-8.2)
[2017-05-17] MEDS: DULoxetine 60 MG CAP PO SCH (09:03)
[2017-05-17] MEDS: TAMSULOSIN HCL 0.4 MG CAP PO SCH (09:03)
[2017-05-17] MEDS: FOLIC ACID 1 MG TAB PO SCH (09:03)
[2017-05-17] MEDS: FAMOTIDINE 20 MG TAB PO SCH (09:03)
[2017-05-17] MEDS: guaiFENesin 600 MG TAB.ER PO SCH (09:03)
[2017-05-17] MEDS: LISINOPRIL 20 MG TAB PO SCH (09:03)
[2017-05-17] MEDS: ENOXAPARIN 40 MG/0.4 ML SYR SC SCH (09:04)
[2017-05-17] MEDS: MULTIVITAMINS 1 EACH TAB PO SCH (09:04)
[2017-05-17] MEDS: GABAPENTIN 300 MG CAP PO SCH (09:04)
[2017-05-17 12:11] VITALS: BP 151/94; PULSE 68; RESP 16; TEMP 97.8; O2SAT 96
--- NOTE | 2017-05-17 12:26 | NEUSURGPN ---
Assessment/Plan: A: 62 yo M admitted after fall w/ hx of meth use, cva, multiple medical issues. Has C1 fx, erosive changes at C2, severe stenosis. Plan: -In cervical collar, continue at all times -X-rays today in collar are stable in comparison to MRI/CT. -MRI C spine reviewed with Dr. Aragon, multiple areas of stenosis -Does not appear myelopathic on examination but has increased tone in his left arm - it is unclear how long he has had this/if it is a result of prior CVA. He states this is similar to how it was after his stroke -Appreciate Palliative care consultation, Patient continues to be a poor surgical candidate due to low likelihood it will fuse, social issues, drug abuse issues -D/w Dr Aragon. NS will continue to follow, call NS with any questions. Would be ok to dc back to SNF and can follow up as outpatient in 4 weeks with new x- rays. Subjective: posterior neck pain, very annoyed with collar. Working with speech therapy and swallowing well. Objective: Alert to person, place, time this morning- much more alert than prior exam CN II-XII grossly intact LUE 3/5 and some spasticity-as was from prior stroke RUE, BLE 5/5= Sensation intact to lt otuch. Negative Darby's Negative Clonus Toes are down going - Physician Discussed Patient with Dr.: Aragon Neurosurgery Physical Exam - Vitals, I&O, Labs I and O 05/16/17 05/17/17 05/18/17 05:59 05:59 05:59 Intake Total 680 2299 Output Total 800 975 Balance -120 1324 Weight 65.6 kg 70.2 kg Intake: Oral (ml) 680 1310 IV Intake (ml) 389 IV Infused (ml) 600 D5w 1/2 Ns 1,000 ml @ 100 600 mls/hr IV CONT JORDAN Rx#: [id number] Output: Urine (ml) 800 975 Catheter 800 975 Other: Intake Quantity Yes Yes Sufficient Number of Voids Toilet 1 Number of Stools Bedside Commode 1 1 Toilet 1 1 Bladder Scan Volume (ml) Bedside Commode 208 616 Catheter 439 Toilet 439 300 Vital Signs Temp Pulse Resp BP Pulse Ox 36.6 C 68 16 151/94 H 96 05/17/17 12:10 05/17/17 12:10 05/17/17 12:10 05/17/17 12:10 05/17/17 12:10 Laboratory Results 05/13/17 04:34 05/17/17 04:40 ICD10 Worksheet Patient Problems: Problems Problem Status Onset C1 cervical fracture Acute COPD (chronic obstructive pulmonary disease) Acute Fall Acute Hematoma Acute Palliative care encounter Acute Chronic disease mgmt/Transitional care Acute Hypoxia Acute Pneumonia Acute
--- NOTE | 2017-05-17 12:33 | PDIAF ---
- Diagnosis Diagnosis: Fall - Medication Management Discharge Medications: Medications to Continue on Transfer DULoxetine [Cymbalta 60 MG (*)] 60 mg PO DAILY 04/03/17 [Last Taken 04/03/17] Folic Acid [Folic Acid 1 MG (*)] 1 mg PO DAILY 04/03/17 [Last Taken 04/03/17] Multivitamins [Multivitamin (*)] 1 each PO DAILY 04/03/17 [Last Taken 04/03/17] Ranitidine HCl 150 mg PO BID 04/03/17 [Last Taken 04/03/17 08:00] Tamsulosin HCl [Flomax 0.4 MG (*)] 0.4 mg PO DAILY #30 cap 04/05/17 [Last Taken Unknown] guaiFENesin [Mucinex 600 MG (*)] 1,200 mg PO BID tab.er 04/05/17 [Last Taken Unknown] Gabapentin [Neurontin 300 MG (*)] 600 mg PO TID 05/13/17 [Last Taken Unknown] Ipratropium/Albuterol [Duoneb (*)] 3 ml IH Q6HRS 05/13/17 [Last Taken Unknown] Lisinopril [Zestril 20 mg (*)] 20 mg PO DAILY 05/13/17 [Last Taken Unknown] Acetaminophen [Tylenol 325mg (*)] 650 mg PO Q4HRS PRN tab 05/17/17 [Last Taken Unknown] morphINE IR [morphINE IR 15 mg (*)] 15 mg PO Q6HRS PRN tab 05/17/17 [Last Taken Unknown] Discharge Medications: Refer to the Discharge Home Medication list for PRN reason. PICC Care - Routine: N/A - Orders Services needed: Registered Nurse, Physical Therapy, Occupational Therapy Diet Texture: Dysphagia 1 - Pureed, [place] Thick Liquids, Meds Whole in Puree Hernandez: Yes - Follow Up Care Current Providers and Referrals: Patient,NotPresent [Unknown] - As per Instructions
--- NOTE | 2017-05-17 13:38 | ASMTCMCOM ---
CM Note CM Note Notes: Proxy decision maker: Spoke with Flako's brother, Young Hyman in [place]. I explained the proxy decision maker role and responsibility, and he is happy to act as his brother's proxy. Young said he is the only one in the family willing to help him because of his past behaviors and actions. When needed, please call Young at [phone] or his (Radha) at [phone]. Date Signed: 05/17/2017 01:37 PM Electronically Signed By:Emily Stroud RN
--- NOTE | 2017-05-17 14:44 | ASMTCMCOM ---
CM Note CM Note Notes: CM Discharge Note: Patient will return to [facility]. Palliative care team met with patient and decided the following: he will return to [facility] and be assessed by [facility] for palliative care within 1-2 days. Patricia with Palliative Care called [facility] to confirm this. Emily Stroud, director of , contacted patient's brother Young who has agreed to be MDPOA. I sent her note to [facility]. I also sent discharge orders and medication list. Marisol vale set up transport for patient; [facility] will garbage pick up man at 1500. YARY Wray called report to [facility]. Date Signed: 05/17/2017 02:44 PM Electronically Signed By:Ayed Fairbanks RN
--- NOTE | 2017-05-17 15:17 | PDPCPN ---
Palliative Care Progress Note Assessment/Plan: HPI: Flako Evans is a 62 yo with PMH COPD, CVA, meth use, and chronic back pain admitted to the hospital from [facility] s/p mechanical fall and subsequent neck pain. Found to have severe C2 stenosis as well as possible acute vs chronic C1 fracture requiring hard collar and possible surgical intervention. Palliative care consulted for complex medical decision making. Met with Flako this morning. He was awake and alert. We discussed his medical conditions as well as risks for surgery. He understands he is a poor surgical candidate due to multiple reasons. He is hoping for good chronic pain relief of his neck. He is hoping with this he can get back to moving around better by himself. His ultimate goal is to find a small apartment for himself that is close by. He understands right now this is not possible due to his neck and subsequent mobility issues. He is ok with us calling his family to update them on what has gone on. We discussed code status and he understands this would not be successful in his case, he is still wanting to think more about this before making any decisions. Assessment: Physical: - Pain: chronic neck pain -on chronic morphine - on cymbalta and gabapentin - tylenol PRN - Dyspnea: chronic COPD - oxygen as needed - nebs - on mucinex scheduled - constipation - at risk on opiates continues bowel regimen with senna and colace Emotional/psychological: Advanced Care Planning: Is patient decisional?: no Code Status: Full- per MOST form MD MCKENNA: would want his brother Young to be his MDPOA. Plan: Return back to [facility] with [facility] palliative care. Understands surgery is not an option at this time. Is hoping for good chronic pain relief. Subjective: i'm wondering about surgery Objective: Vital Signs Temp Pulse Resp BP Pulse Ox 36.6 C 68 16 151/94 H 96 05/17/17 12:10 05/17/17 12:10 05/17/17 12:10 05/17/17 12:10 05/17/17 12:10 Laboratory Results 05/13/17 04:34 05/17/17 04:40 05/16/17 05/17/17 05/18/17 05:59 05:59 05:59 Intake Total 680 2299 Output Total 800 975 Balance -120 1324 PT 14.3 SEC (12.0-15.0) 05/12/17 23:56 INR 1.12 (0.83-1.16) 05/12/17 23:56 Physical Exam - Physical Exam General Appearance: alert, no apparent distress Respiratory: No respiratory distress, No accessory muscle use Skin: normal color, warm/dry Extremities: No pedal edema Neuro/Psych: alert, oriented x 3 ICD10 Worksheet Patient Problems: Problems Problem Status Onset C1 cervical fracture Acute COPD (chronic obstructive pulmonary disease) Acute Fall Acute Hematoma Acute Palliative care encounter Acute Chronic disease mgmt/Transitional care Acute Hypoxia Acute Pneumonia Acute - ICD10 Problem Qualifiers (1) Palliative care encounter
--- NOTE | 2017-05-17 16:32 | ASDISCHSUM ---
Discharge Information Plan Status:SNF Medically Cleared to Leave: Discharge Date:05/17/2017 03:16 PM CM D/C Disposition:Nursing Home Facility ADT D/C Disposition:Nursing Home Facility Projected Discharge Date:05/17/2017 11:00 AM Transportation at D/C:Wheelchair Van Discharge Delay Reason: Follow-Up Date:05/17/2017 11:00 AM Discharge Slot: Final Diagnosis: Placement Information Referral Type:*Longterm/SNF Referral ID:[id number] Provider Name:Shelby LoganDudaOBDULIA Quarles Address 1:[address] Phone Number: Address 2: Fax Number: [facility]:[place] Selection Factors: State:[place] Patient Contact Information Contact Name:KATHERYN Relationship:Friend Address: Work Phone: City: [facility] [place] [place] Phone: [facility] Code: Email: Financial Information Financial Class: Primary Plan Desc:MEDICARE INPATIENT Primary Plan Number:[id number] Secondary Plan Desc:MEDICA[place] Secondary Plan Number:[id number] Assessment Information [facility] CM Progress Note CM Note CM Note Notes: Spoke w/Jayla at [facility], pt lives there after cva and has speech deficits, pt fell at and injured his neck. Pt is current w/[facility], call Manuel ([phone]) with any questions. Per dr Jayla at ordered hospice shortly before fall. A palliatve consult was ordered here before knowing he was already current with [facility], pt needs high risk sx for cervical fx, Patricia from the palliative team working w/CM and pt for next steps. Date Signed: 05/14/2017 11:44 AM Electronically Signed By:Harriet Smart RN [facility] CM Progress Note CM Note CM Note Notes: Patient more alert and oriented today and interested in talking to Neurosurg. Perhaps Palliative will have a better chance in talking with him Wednesday. Patient needs to name a MPOA. Date Signed: 05/16/2017 06:27 PM Electronically Signed By:Rut Marquez LCSW [facility] Progress Note CM Note CM Note Notes: Proxy decision maker: Spoke with Flako's brother, Young Hyman in [place]. I explained the proxy decision maker role and responsibility, and he is happy to act as his brother's proxy. Young said he is the only one in the family willing to help him because of his past behaviors and actions. When needed, please call Young at [phone] or his (Radha) at [phone]. Date Signed: 05/17/2017 01:37 PM Electronically Signed By:Emily Stroud RN [facility] Progress Note CM Note CM Note Notes: Discharge Note: Patient will return to [facility]. Palliative care team met with patient and decided the following: he will return to [facility] and be assessed by [facility] for palliative care within 1-2 days. Patricia with Palliative Care called [facility] to confirm this. Emily Stroud, director of , contacted patient's brother Young who has agreed to be MDPOA. I sent her note to [facility] Biswas. I also sent discharge orders and medication list. Marisol from set up transport for patient; Shelby Tolbert will brass pickler at 1500. YARY Wray called report to [facility] Biswas. Date Signed: 05/17/2017 02:44 PM Electronically Signed By:Ayde Fairbanks RN Intervention Information Intervention Type:*IM-Signed Date of Service:05/17/2017 01:55 PM Patient Type:Inpatient Staff Member:Yessy Mendez Hours: Discipline: Severity: Comment:
--- NOTE | 2017-05-17 19:36 | GDS ---
[f rep st] DISCHARGE SUMMARY DISCHARGE DIAGNOSES: 1. Fall. 2. C1 fracture with erosive changes. 3. Abdominal pain. 4. Scalp hematoma. 5. Acute encephalopathy. 6. History of cerebrovascular accident. 7. Chronic pain on continuous opioids. CONSULTATIONS: 1. Neurosurgery. 2. Palliative Care. STUDIES AND PROCEDURES DONE: 1. CT of the spine. 2. Chest x-ray. 3. CT of the head. 4. Shoulder x-ray. 5. Cervical spine MRI. 6. PICC line insertion. 7. Cervical spine x-ray. PHYSICAL EXAM: GENERAL: The patient is alert. VITAL SIGNS: Afebrile at 36.6, pulse 68, respirator y rate 16, blood pressure is 151/94, saturating 96% on 3 L. I have seen and evaluated the patient on the day of discharge. HOSPITAL COURSE: The patient is a 62-year-old male who presented to the emergency room from [facility] after suffering a fall. He was evaluated and diagnosed with: 1. C1 fracture with erosive changes at C2. During this hospitalization, he received a consultation from Neurosurgery. The patient is a poor candidate for surgical intervention. A collar has been jamaal chantell and it is recommended that the patient continue to wear his collar at all times. Neurosurgery greene s evaluated the patient on the day of discharge and feels that he is safe to be discharged back to [facility] under his normal living conditions. He will follow up with Neurosurgery in 4 weeks. 2. Abdominal pain. This has resolved. 3. Left frontal scalp hematoma. This is stable at present with no evidence of skull fracture. 4. Acute encephalopathy. This has resolved. The patient has returned to his baseline mentation. 5. History of CVA. Again, the patient appears to be at his baseline with regard to the history of t his condition. 6. Chronic pain on continuous chronic opioids. The patient's medications have been adjusted during this hospitalization and his long-acting medications have been discontinued and this is secondary to the patient's altered mentation during this hospitalization. He may need these medications re-initia sherman in the future if his pain is not well controlled. DISPOSITION: The patient will be discharged to return to [facility] where he normally resides. H e will follow up with Neurosurgery in 4 weeks. He is to keep his C-collar on at all times. He will continue physical therapy as well as occupational therapy. He does understand that he is a poor surg ical candidate and he did have a palliative care consult and meeting during this hospitalization. He will continue with palliative care in the outpatient setting. I spent greater than 35 minutes in the care, coordination, and management of this patient's dispositi on. /[id number]/MODL
[2017-05-20] MEDS ORDERED: PNEUMOCOCCAL 0.5ML VACCINE VIAL ONE (11:59)
== END 2017-05-17 15:16 | DRG 551 ==
LOC: EDUNIT# → F3E 05-13 02:43 → F3N 05-14 11:09
PROVIDERS: ADMIT Family Medicine; ATTEND Internal Medicine
PROC: 02HV33Z Insertion of Infusion Device into Superior Vena Cava, Percutaneous Approach (ICD-10-PCS; principal; 2017-05-13)
DX: S12.001A Unspecified nondisplaced fracture of first cervical vertebra, initial encounter for closed fracture (principal); S00.83XA Contusion of other part of head, initial encounter; W01.0XXA Fall on same level from slipping, tripping and stumbling without subsequent striking against object, initial encounter; Y92.128 Other place in nursing home as the place of occurrence of the external cause; G92 Toxic encephalopathy; T40.605A Adverse effect of unspecified narcotics, initial encounter; R10.9 Unspecified abdominal pain; J44.9 Chronic obstructive pulmonary disease, unspecified; J96.11 Chronic respiratory failure with hypoxia; I69.328 Other speech and language deficits following cerebral infarction; M54.2 Cervicalgia; G89.29 Other chronic pain; I10 Essential (primary) hypertension; Z98.1 Arthrodesis status; Z99.81 Dependence on supplemental oxygen
CPT/HCPCS: 92526-GN; 92610-GN; 96374; 97162-GP; 97166-GO; C1751; G8978-GP-CK; G8979-GP-CJ; G8987-GO-CK; G8988-GO-CI; G8996-GN-CK; G8997-GN-CJ; J1650; J2060; L0174

== ENCOUNTER 2017-05-19 17:12 | Inpatient (IN) | payer OTHER, MEDICAID ==
--- NOTE | 2017-05-19 17:27 | EDPHY ---
H & P Time Seen by Provider: 05/19/17 17:22 HPI/ROS: HPI: This is a 62-year-old male who presents with Chief Complaint: Accidental fall, head injury, neck pain Location: Head, neck Quality: Pain Duration: Prior to arrival Signs and Symptoms: No bleeding, no radiation, no numbness, no weakness, no tingling, no incontinence, no LOC, no dizziness, no fever, no vision changes Timing: Acute Severity: [id number] Context: Patient has a history of mechanical fall with C1 fracture and erosive changes seen in this emergency room on 05/12/2017 and admitted on 05/13/2017. During the hospitalization, he received a consult from neurosurgery who deemed patient to be a poor candidate for surgical intervention. He was placed in a cervical collar and advised to wear at all times. Patient presents today via EMS, he was sitting in his wheelchair and to had to use the bathroom. As you to get out of his wheelchair, he stumbled over his feet and fell forward hitting the right side of his head. He complains of dull aching right-sided temporal headache with left-sided neck pain and left shoulder pain. Denies LOC/ dizziness/chest pain/paresthesias/radiculopathy/abdominal pain. Patient has a Temple catheter that he reports was placed approximately 2 days ago. Blood noted in the Temple tubing. Patient was wearing a cervical collar at the time of accident. Modifying Factors: EMS was called Comment: ROS: see HPI Constitutional: No fever, no chills, no weight loss Eyes: No blurred vision Respiratory: No shortness of breath, no cough Cardiovascular: No chest pain Gastrointestinal: No nausea, no vomiting no diarrhea Genitourinary: No dysuria Extremities: No myalgias Neurologic: No weakness, no numbness Skin: No rashes Hematologic: No bruising, no bleeding MEDICAL/SURGICAL/SOCIAL HISTORY: Medical history: History of polysubstance abuse, pneumonia, COPD 6 L nasal cannula, CVA, chronic pain Surgical history: Denies Social history: Resides [facility] CONSTITUTIONAL: Chronically ill-appearing white male, awake and alert, no obvious distress HEENT: Blackish purple frontal hematoma noted as well as left periorbital dark blue ecchymosis and normocephalic, PERRL, EOMI. no globe entrapment, no raccoon eyes. no Funez signs. Tympanic membranes clear. No tympanic membrane rupture. Nares patent; no septal hematoma. Oropharynx clear, no exudate and moist pink mucosa. No malocclusion. no dental trauma. Airway patent. No lymphadenopathy. NECK: Wearing cervical collar. Cardiovascular: Normal S1/S2, regular rate, regular rhythm, without murmur rub or gallop. PULMONARY/CHEST: Symmetrical and nontender. no crepitus. Clear to auscultation bilaterally. Good air movement. No accessory muscle usage. ABDOMEN: Soft, nondistended, nontender, no ecchymosis, no rebound, no guarding , no peritoneal signs, no masses or organomegaly. No CVAT. PELVIC: no pain with rocking; bilateral hips flexion 125 degrees, extension 30 degrees, no pain internal rotation and no pain external rotation. BACK: No midline tenderness, no paraspinous spasm, deep tendon reflexes 2/2, no pain with straight leg raise : Large amount bleeding noted from urethra status post removal temple. EXTREMITIES: 2/2 pulses, LEFT SHOULDER: Mild tenderness reproduced over left trapezius muscle, Arc test abduction to 180, abduction to 45, horizontal flexion 130, horizontal extension to 45, deltoid strength 5/5. Mild Tenderness to palpation over AC joint. Left campus supervisor strength 5/5. no deformities, no clubbing, no cyanosis or edema. NEUROLOGICAL: no focal neuro deficits. GCS 15. light touch sensation intact. SKIN: Warm and dry, no erythema. no rash. Good capillary refill. Source: Patient, RN/MD, EMS - Medical/Surgical History Hx Asthma: No Hx Chronic Respiratory Disease: Yes Hx Diabetes: No Hx Cardiac Disease: No Hx Renal Disease: No Hx Cirrhosis: No Hx Alcoholism: No Hx HIV/AIDS: No Hx Splenectomy or Spleen Trauma: No Other PMH: COPD. HTN. Spinal stenosis. Hepatitis. Cognitive communication deficit. Swelling to left upper arm. - Social History Smoking Status: Unknown if ever smoked Constitutional: Initial Vital Signs Temperature (C) 37.7 C 05/19/17 17:21 Heart Rate 75 05/19/17 17:21 Respiratory Rate 18 05/19/17 17:21 Blood Pressure 134/90 H 05/19/17 17:21 O2 Sat (%) 95 05/19/17 17:21 O2 Delivery Mode Room Air Allergies/Adverse Reactions: Penicillins Allergy (Verified 05/13/17 00:04) vecuronium Allergy (Verified 05/13/17 00:04) Home Medications: Medication Instructions Recorded DULoxetine [Cymbalta 60 MG (*)] 60 mg PO DAILY 04/03/17 Folic Acid [Folic Acid 1 MG (*)] 1 mg PO DAILY 04/03/17 Multivitamins [Multivitamin (*)] 1 each PO DAILY 04/03/17 Ranitidine HCl 150 mg PO BID 04/03/17 Tamsulosin HCl [Flomax 0.4 MG (*)] 0.4 mg PO DAILY #30 cap 04/05/17 guaiFENesin [Mucinex 600 MG (*)] 1,200 mg PO BID tab.er 04/05/17 Gabapentin [Neurontin 300 MG (*)] 600 mg PO TID 05/13/17 Ipratropium/Albuterol [Duoneb (*)] 3 ml IH Q6HRS 05/13/17 Lisinopril [Zestril 20 mg (*)] 20 mg PO DAILY 05/13/17 Acetaminophen [Tylenol 325mg (*)] 650 mg PO Q4HRS PRN tab 05/17/17 morphINE IR [morphINE IR 15 mg (*)] 15 mg PO Q6HRS PRN tab 05/17/17 Medical Decision Making ED Course/Re-evaluation: Head CT scan and cervical scan, left shoulder x-ray, labs, IV medications ordered No LOC. No signs of neurovascular compromise/tenting of skin/compartment syndrome/ extremities and joints examined above and below area of concern and are neurovascularly intact. 1745: Notified by nursing that Temple is clogged despite irrigation; order to change temple and placed on continuous bladder irrigation. 1810: Called by Radiology who advised head CT scan shows subdural hematoma on the left posterior temporal region 4 mm in size. Comparison to the one prior earlier in the month shows 2 mm subdural hematoma at that time. CT cervical spine is stable. 1820: ED decision to consult for admission, spoke with trauma, Dr. Yin, who kindly accepts patient and provide further care. Spoke with Dr. Leong Neurosurgery who will be happy to consult Differential Diagnosis: Head injury including but not limited to concussion, skull fracture, intraparenchymal contusion, subarachnoid, subdural and epidural hematoma. Departure - Departure Disposition: [facility] Acute Clinical Impression: Subdural hematoma, Urethral bleeding C1 cervical fracture Qualifiers: Encounter type: sequela Fracture type: closed Fracture morphology: unspecified fracture morphology Fracture alignment: nondisplaced Qualified Code(s): S12.001S - Unspecified nondisplaced fracture of first cervical vertebra, sequela
[2017-05-19] MEDS ORDERED: LIDOCAINE 2% JELLY 20 ML (UROJECT) ONE ×2 (18:24→19:08)
[2017-05-19] MEDS ORDERED: NS 1,000 ML IV ONE (18:27)
[2017-05-19] MEDS ORDERED: ONDANSETRON 4 MG/2 ML VIAL IVP PRN (18:57)
[2017-05-19] MEDS ORDERED: ACETAMINOPHEN 325 MG TAB PO SCH (19:00)
[2017-05-19] MEDS ORDERED: LR 1,000 ML IV SCH (19:00)
[2017-05-19 19:30] LABS: INR 1.14 (0.83-1.16); PROTIME(PATIENT) 14.5 SEC (12.0-15.0)
[2017-05-19 19:31] LABS: APTT 26.9 SEC (23.0-38.0)
[2017-05-19] MEDS ORDERED: ACETAMINOPHEN 325 MG TAB PO ONE (19:41)
[2017-05-19 20:15] LABS: HEMATOCRIT 44.6 % (40.0-51.0); HEMOGLOBIN 14.2 g/dL (13.7-17.5); MEAN CELL HEMOGLOBIN 26.3 pg (27.9-34.1); MEAN CELL HEMOGLOBIN CONCENTR. 31.8 g/dL (32.4-36.7); MEAN CELL VOLUME 82.6 fL (81.5-99.8); PLATELET COUNT 223 10^3/uL (150-400)
[2017-05-19 20:16] LABS: % IMMATURE GRANULYOCYTES 0.3 % (0.0-1.1); ABSOLUTE IMMATURE GRANULOCYTES 0.03 10^3/uL (0.00-0.10); ADD DIFF? NO; ADD MORPH? NO; ADD SCAN? NO; ATYPICAL LYMPHOCYTE FLAG 10 (0-99); FRAGMENT RBC FLAG 0 (0-99); LEFT SHIFT FLG 0 (0-99); LIPEMIA HEMOLYSIS FLAG 80 (0-99); MEAN PLATELET VOLUME 8.9 fL (8.7-11.7); PLATELET CLUMPS FLAG 10 (0-99); RED CELL DISTRIBUTION WIDTH 15.9 % (11.5-15.2)
[2017-05-19 20:27] LABS: ANION GAP 14 mEq/L (8-16); CALCIUM 9.9 mg/dL (8.5-10.4); CARBON DIOXIDE 30 mEq/l (22-31); CHLORIDE 97 mEq/L (97-110); CREATININE 0.8 mg/dL (0.7-1.3); GLOMERULAR FILTRATION RATE > 60; GLUCOSE 96 mg/dL (70-100); POTASSIUM 4.5 mEq/L (3.5-5.2); SODIUM 141 mEq/L (134-144)
--- NOTE | 2017-05-19 22:39 | GHP ---
[f rep st] PREOP HISTORY AND PHYSICAL DATE OF ADMISSION: 05/19/2017 DIAGNOSIS: Fall with a 4 mm subdural hematoma. HISTORY: The patient was admitted to this hospital on 05/13/2017 and discharged on May 17. He was discharged back to [facility]. With his last admission, he had an unstable gait and he had fallen. He had (in retrospect) a 2 mm subdural which is not seen on last admission. He had developed a C1 fracture (age undetermined) with erosive changes. He had a scalp hematoma and had an acute encephalopathy. He had a history of a prior stroke. He stabilized at [facility] and sent back to [facility]. He managed to become confused and pull his Hernandez catheter out which caused him to have a urethral injury with continued hematuria. He fell forward out of his chair today. He suffered another left frontal scalp hematoma. There is a now 4 mm subdural hematoma. A followup scan is pending. He was seen in the emergency room. He is complaining of left shoulder and left arm pain. X-rays of his left shoulder and left arm were unremarkable. He does have a left frontal hematoma. He has continues bleeding with clots from his urethra. His airway is clear and unencumbered. His breathing is uncompromised. A focused history reveals that he has had transfusions in the past. He is edentulous and needs upper and lower dentures. He has had a history of concussions in the past. Hypertension has been a lifelong problem for him. His cerebrovascular accident was last Lionel. He is hepatitis C positive. He does walk with a walker and has been unstable for the last 6 months. He smoked from ages [age]. He does not drink. He states he has a penicillin allergy. The chart indicates he also has a vecuronium allergy. He is in chronic pain and does take pain medications. PAST SURGICAL HISTORY: His surgeries included TURP 5 years ago, tonsillectomy, laminectomy, and he does have chronic neck pain. ADDITIONAL DATA: He has significant COPD and require 6 L/minute of continuous oxygen. His CVA was associated with communication deficits and chronic pain. There is a remote history of polysubstance abuse. HOME MEDICATIONS: As listed in the chart include Percocet 10/325 one tablet every 8 hours p.r.n. for pain, morphine SR 30 mg twice a day. He had been on Levaquin 750 mg daily, Mucinex 1200 mg twice a day, amlodipine 10 mg daily, Flomax 0.4 mg daily, Zantac 150 mg twice a day, multivitamin daily. He uses a DuoNeb inhaler every 6 hours as needed. He takes gabapentin 600 mg 3 times a day, folic acid 1 mg daily, Duloxetine 60 mg daily, and Tylenol every 8 hours for pain. PHYSICAL EXAMINATION: GENERAL: He is seen lying in ER bed 8, but is moved to ER bed 2. There was some difficulty getting an IV initially. He seems to be awake, alert, and conversant. He is given most of the history listed above, which is changed from his prior admission when he was barely communicative. HEENT: His skull has a contusion on the left frontal region. The skull is otherwise unremarkable. There is no Funez sign or raccoon eyes. NEUROLOGIC: He is moving all his extremities. He appears to be oriented to person, place, and time and his [place] coma Scale is 15. NECK: He is in a C-collar because of his above-mentioned C1 fracture, which has been deemed non operative. He complains of left shoulder pain, yet x-ray showed no evidence of fracture or dislocation of his left shoulder. UPPER EXTREMITIES: He complains of left shoulder pain, yet x-ray showed no evidence of fracture or dislocation of his left shoulder. He complains of left forearm pain, though x-ray showed no evidence of forearm fracture. His right upper extremity is unremarkable. CHEST: Stable to AP and lateral compression. LUNGS: Clear to auscultation. CARDIAC: Shows S1, S2 to be normal. ABDOMEN: Soft and nontender. PELVIS: His pelvis is stable to AP and lateral compression. : He does have a rip in his urethra inferiorly. Attempt was made to pass a Hernandez catheter without success. A large amount of Xylocaine jelly and lubrication was used. Gentle pressure is used. When it did not pass easily, Urology was called. Urology subsequently used a flexible cystoscopy, passed a wire into the bladder and fed a Councill tip catheter over the wire. He does have hematuria and the catheter was put on traction and irrigated. LOWER EXTREMITIES: Unremarkable. Followup CAT scan is pending for 2300 hours. Neurosurgery has been consulted and will see the patient in the morning. /[id number]/MODL MTDD
--- NOTE | 2017-05-19 22:49 | GCON ---
[f rep st] CONSULTATION DATE OF CONSULTATION: 05/19/2017 COMPLICATIONS: None. EBL: Minimal. URINE OUTPUT: Unrecorded. INDICATIONS: The patient is a very pleasant, 62-year-old male, who is wheelchair bound and fell toda y with a C1 fracture and a subdural hematoma. As he fell and tried to recover, he pulled out his chr onic indwelling Hernandez. I was asked to help with replacement, as several people have tried and failed to place a Hernandez. I presented to the bedside for management of this. I did perform a bedside cysto scopy using sterile conditions and over a guidewire, placed an 18-Kiswahili Venetie tip into the bladder over the guidewire and insufflated with 10 cc of sterile water. Cystoscopy did note severely trauma tized urethra as well as a severely traumatized prostate; however, the urine was apodaca only upon Fol ey placement. I am unconcerned about the need for CVI. We will put the Hernandez on gentle traction and this traction can be released in 72 hours. REVIEW OF SYSTEMS: Positive for head pain, neck pain, bladder pain. Otherwise 10-point review of sy stems is negative except as above in HPI. ALLERGIES: Penicillin, vecuronium. HOME MEDICATIONS: Please see the EMR, Percocet, morphine, Levaquin, Mucinex, amlodipine, tamsulosin, ranitidine, multivitamin, DuoNeb, gabapentin, folic acid, duloxetine, Tylenol. PAST MEDICAL HISTORY: Significant for pneumonia, polysubstance abuse remotely, COPD on 6 L of oxygen , chronic respiratory failure with hypoxia, hypertension, communication deficit. PAST SURGICAL HISTORY: He is on the trauma service. FAMILY HISTORY: Unable to obtain. SOCIAL HISTORY: Patient resides in a nursing facility. No current tobacco, drug, or alcohol use. CODE STATUS: As above. PHYSICAL EXAMINATION: VITAL SIGNS: Blood pressure 134/80, MAP is 100, heart rate 86, respiratory ra te 20, O2 saturation 93% on 4 L, afebrile. LABORATORY DATA: White count of 10.79, H and H is stable. Platelets are 223. A CT scan cervical sp ine, CT notes trauma. Unrelated to trauma. GENERAL: He is in moderate distress. C-collar is located. HEENT: He is normocephalic with trauma to the left synagogue with ecchymosis and a hematoma subcutaneous. NECK: He is in a C-collar. Neck ca nnot be examined. CHEST: No retractions or pursed lip breathing. ABDOMEN: Soft, nondistended. GE NITOURINARY: He is very bloody, blood per meatus is significant but non pulsatile. Testicles are at raumatized, normal bilaterally. Scrotum is normal. MUSCULOSKELETAL: Moving all 4 extremities. INT EGUMENT: No rashes or lesions. PSYCHOLOGIC: Difficult historian. Alert and oriented. ASSESSMENT/PLAN: 1. Sterile cystoscopy performed at bedside with Hernandez catheter placed over wire in the emergency florencio m. Findings on cystoscopy at the bedside included traumatized urethra and a bleeding prostate. A Fo tres was placed over wire atraumatically and apodaca urine from the bladder. 2. Continue Hernandez catheter x1 month. At this point, he would follow up with the [place] office for Hernandez catheter removal. We will see him as an inpatient. /[id number]/MODL
[2017-05-19] MEDS: ACETAMINOPHEN 500 MG TAB PO SCH (22:58)
[2017-05-20] MEDS: ACETAMINOPHEN 500 MG TAB PO SCH ×2 (04:19→11:16)
--- NOTE | 2017-05-20 04:35 | GCON ---
[f rep st] CONSULTATION CONSULTING SERVICES: Emergency Medicine and Trauma Surgery. REASON FOR CONSULTATION: Small traumatic subdural hematoma. HISTORY OF PRESENT ILLNESS: 62-year-old male with a past medical history significant for substance a buse, stroke, COPD, and significant cervical canal stenosis at the skull base, who was recently seen by Dr. Aragon and is potentially plan for occipitocervical decompression and fusion. He was discharge d back to [facility] after hospital stay from 05/13 to 05/17. Earlier today he became confused an d pulled his Hernandez catheter out resulting in hematuria and he fell forward out of his chair resulting in a forehead trauma with a scalp hematoma and associated left-sided thin 4 mm subdural hematoma. Yady alvarado has no complaints on my exam. He is being admitted to the trauma service for observation. PAST MEDICAL HISTORY: Per HPI. Hepatitis C, chronic neck pain, 24-hour O2. PAST SURGICAL HISTORY: Per HPI. TURP, tonsillectomy, laminectomy. HOME MEDICATIONS: Percocet, morphine, Levaquin, Mucinex, amlodipine, Flomax, Zantac, multivitamin, D uoNeb inhaler, gabapentin, folic acid, duloxetine, Tylenol. SOCIAL HISTORY: Lives in [facility]. FAMILY HISTORY: Noncontributory as this is trauma. CODE STATUS: Full. ALLERGIES: Penicillin and vecuronium. REVIEW OF SYSTEMS: Ten points reviewed and negative other than mentioned in HPI. PHYSICAL EXAMINATION: VITAL SIGNS: Afebrile with temperature of 36.9 degrees Celsius, heart rate 81 , blood pressure 135/99, respiratory rate 20, saturating 94% on 4 L nasal cannula. NEUROLOGIC: Awak e, alert, and oriented. Obvious forehead trauma in a cervical collar. Cranial nerves normal. Follo ws all commands. Dense paresis of the left upper extremity, slightly less of the left lower extremit y. Follows all commands. Gait is deferred. IMAGING DATA: I have reviewed the patient's CT of the cervical spine and note extensive spondylosis with an erosive process at the high cervical levels of the skull base are stable from past scans. He also has a noncontrasted head CT that demonstrates no skull fracture but a new a thin 4 mm left-side d subdural along the convexity without mass effect or midline shift. LABORATORY DATA: White blood cell count 10.8, hemoglobin 14.2, platelet count 223, neutrophil percen tage is 75.7, absolute neutrophil count 8.18. INR 1.1. PTT 26.9. Sodium 141, potassium 4.5. BUN a nd creatinine 20 and 0.8. Glucose 96. IMPRESSION AND PLAN: 62-year-old male with multiple medical problems with past medical history consi stent with substance abuse, who lives at [facility]. He was recently seen for erosive skull base process with severe cervical stenosis at a high cervical level and is tentatively awaiting surgery wi Dr. Aragon. He has been managed in a collar. He fell at [facility] striking his forehead earli er today after pulling his catheter out, and he has a small nonoperative subdural hematoma. His phys ical exam is at baseline and reassuring, and his labs are unconcerning. He is admitted to Dr. Yin 's service for overnight observation and a repeat head CT. Otherwise, no further recommendations. Yady alvarado should continue his cervical collar. Thank you for this consult. We are following along. /[id number]/MODL
[2017-05-20 04:43] LABS: % IMMATURE GRANULYOCYTES 0.3 % (0.0-1.1); ABSOLUTE IMMATURE GRANULOCYTES 0.03 10^3/uL (0.00-0.10); ADD DIFF? NO; ADD MORPH? NO; ADD SCAN? NO; ATYPICAL LYMPHOCYTE FLAG 0 (0-99); FRAGMENT RBC FLAG 0 (0-99); HEMATOCRIT 38.9 % (40.0-51.0); HEMOGLOBIN 12.5 g/dL (13.7-17.5); LEFT SHIFT FLG 0 (0-99); LIPEMIA HEMOLYSIS FLAG 80 (0-99); MEAN CELL HEMOGLOBIN CONCENTR. 32.1 g/dL (32.4-36.7); MEAN PLATELET VOLUME 8.6 fL (8.7-11.7); PLATELET CLUMPS FLAG 0 (0-99); PLATELET COUNT 193 10^3/uL (150-400); RED CELL DISTRIBUTION WIDTH 15.9 % (11.5-15.2)
[2017-05-20 05:03] LABS: ANION GAP 8 mEq/L (8-16); CARBON DIOXIDE 29 mEq/l (22-31); CHLORIDE 103 mEq/L (97-110); CREATININE 0.7 mg/dL (0.7-1.3); GLOMERULAR FILTRATION RATE > 60; GLUCOSE 97 mg/dL (70-100); POTASSIUM 4.1 mEq/L (3.5-5.2); SODIUM 140 mEq/L (134-144)
[2017-05-20 07:50] VITALS: TEMP 97.5
--- NOTE | 2017-05-20 09:58 | TRAUMAPN ---
- Problem/Surgery Performed (1) Subdural hematoma Assessment/Plan: PAD#1 05/20/2017 Assessment: Patient with unstable gait x 6 months who previously fell and was admitted on 1018. He had returned to [facility] and fell out of his wheel chair striking his head again. He has a 4mm nonoperative subdural in the the left occitital region. In hindsight he had had a prior 2mm subdural at the same site on prior admission. Follow up CT showed no progression. Neurosurgery note appreciated. Plan: At baseline. Hope to return to [facility] today (2) Urethral bleeding Assessment/Plan: Barnhart tipped temple placed by urology last night over guidewire. Hematuria clearing. (3) C1 cervical fracture Assessment/Plan: To continue hard collar and follow with Neurosurgery Qualifiers: Encounter type: sequela Fracture type: closed Fracture morphology: unspecified fracture morphology Fracture alignment: nondisplaced Qualified Code(s): S12.001S - Unspecified nondisplaced fracture of first cervical vertebra , sequela (4) COPD (chronic obstructive pulmonary disease) Assessment/Plan: chronic stable issue Qualifiers: COPD type: unspecified COPD Qualified Code(s): J44.9 - Chronic obstructive pulmonary disease, unspecified Subjective: complains of low level right occipital headache Objective: Vital Signs Temp Pulse Resp BP Pulse Ox 36.4 C 62 10 L 143/81 H 99 05/20/17 07:44 05/20/17 07:44 05/20/17 07:44 05/20/17 07:44 05/20/17 07:44 Laboratory Results 05/20/17 04:30 05/20/17 04:30 05/19/17 05/20/17 05/21/17 05:59 05:59 05:59 Intake Total 1790 Output Total 1200 Balance 590 PT 14.5 SEC (12.0-15.0) 05/19/17 19:11 INR 1.14 (0.83-1.16) 05/19/17 19:11 - C-Spine Clearance Cervical Spine Cleared: No Physical Exam - Physical Exam General Appearance: WD/WN, alert, no apparent distress EENT: other (Left frontal hematoma) Neck: other (Hard C-collar remains in place.) Respiratory: lungs clear, other (breath sounds distant) Cardiac/Chest: regular rate, rhythm Abdomen: normal bowel sounds, non-tender, soft Male Genitalia: other (urethral tear due to traumatic temple self removal. Tempel in place. urine clearing) Rectal: deferred Back: Normal inspection Skin: normal color, warm/dry Neuro/Psych: alert, normal mood/affect, oriented x 3 (Weak left upper extremity ( chronic, due to prior CVA)), other Time Spent w/Patient (minutes): 25
[2017-05-20] MEDS ORDERED: TAMSULOSIN HCL 0.4 MG CAP PO SCH (10:00)
[2017-05-20] MEDS ORDERED: guaiFENesin 600 MG TAB.ER PO SCH (10:00)
[2017-05-20] MEDS ORDERED: DULoxetine 60 MG CAP PO SCH (10:00)
[2017-05-20] MEDS ORDERED: MULTIVITAMINS 1 EACH TAB PO SCH (10:00)
[2017-05-20] MEDS ORDERED: LISINOPRIL 20 MG TAB PO SCH (10:00)
[2017-05-20] MEDS ORDERED: FAMOTIDINE 20 MG TAB PO SCH (10:00)
[2017-05-20] MEDS ORDERED: FOLIC ACID 1 MG TAB PO SCH (10:00)
--- NOTE | 2017-05-20 10:33 | PDIAF ---
- Diagnosis Code Status: Full Code - Medication Management Discharge Medications: Medications to Continue on Transfer DULoxetine [Cymbalta 60 MG (*)] 60 mg PO DAILY 04/03/17 [Last Taken 05/19/17] Folic Acid [Folic Acid 1 MG (*)] 1 mg PO DAILY 04/03/17 [Last Taken 05/19/17] Multivitamins [Multivitamin (*)] 1 each PO DAILY 04/03/17 [Last Taken 05/19/17] Ranitidine HCl 150 mg PO BID 04/03/17 [Last Taken 05/19/17 09:00] Tamsulosin HCl [Flomax 0.4 MG (*)] 0.4 mg PO DAILY #30 cap 04/05/17 [Last Taken 05/19/17] Gabapentin [Neurontin 300 MG (*)] 600 mg PO TID 05/13/17 [Last Taken Unknown] Ipratropium/Albuterol [Duoneb (*)] 3 ml IH Q6HRS 05/13/17 [Last Taken Unknown] Lisinopril [Zestril 20 mg (*)] 20 mg PO DAILY 05/13/17 [Last Taken 05/19/17] morphINE IR [morphINE IR 15 mg (*)] 15 mg PO Q6HRS PRN tab 05/17/17 [Last Taken Unknown] guaiFENesin [Mucinex 600 MG (*)] 600 mg PO BID 05/19/17 [Last Taken 05/19/17 09: 00] Acetaminophen [Tylenol ES 500 mg (*)] 1,000 mg PO Q8H tab 05/20/17 [Last Taken Unknown] Discharge Medications: Refer to the Discharge Home Medication list for PRN reason. PICC Care - Routine: N/A - Orders Services needed: Registered Nurse, Physical Therapy, Occupational Therapy Diet Recommendation: no restrictions on diet Diet Texture: Regular Texture Diet Hernandez: Yes (DO NOT REMOVE UNTIL CLEARED BY DR. ASHLEY QUINONES.) - Follow Up Care Current Providers and Referrals: [facility],PCP [Other] Jesus Manuel Aragon MD [Medical Doctor] - (Call for follow up. ) Ashley Quinones MD [Medical Doctor] - (Call for follow up)
--- NOTE | 2017-05-20 10:53 | ASMTCMCOM ---
CM Note CM Note Notes: Patient reviewed in am rounds. Ready for dc back to [facility]. Referral in allscripts. RN aware. Call to [facility] and they will arrange transport. Patient will need oxygen. Wheel chair is ok. CM available if further needs arise. Date Signed: 05/20/2017 10:53 AM Electronically Signed By:Xiomy Mukherjee RN
[2017-05-20 11:07] VITALS: PULSE 74; RESP 17; O2SAT 88
[2017-05-20 11:17] VITALS: BP 133/85
--- NOTE | 2017-05-20 11:26 | NEUSURGPN ---
Assessment/Plan: A: 62 yo male sp fall at SNF [facility] small non-op left sided subdural hematoma Plan: -Repeat Head CT at 0100 shows stable SDH -Continue cervical collar for C1 fx he was seen for last week -Left sided weakness stable and is from prior stroke -Follow up with Dr. Aragon as scheduled( Dr. Aragon saw him for his prior admission for his cervical fracture) in 4 weeks -Ok from neurosurgery standpoint to be sent back to SNF -Dispo per primary team Discussed with Dr. Aragon and Dr. Leong S: Patient complaining of left sided head pain. Complaining of neck pain as well O: Alert to person, year, not place NAD, VSS Has ecchymosis and raised bump on left forehead from fall Cervical collar in place PERRL, EOMI CN II-XII grossly intact RODRIGUEZ X 4 Left sided weakness and spasticity as was from prior stroke Negative Kevin's, clonus Catheter Insertion Date: 05/19/17 - Physician Discussed Patient with Dr.: Leong Patient Seen by Dr.: Leong Neurosurgery Physical Exam - Vitals, I&O, Labs I and O 05/19/17 05/20/17 05/21/17 05:59 05:59 05:59 Intake Total 1790 Output Total 1200 Balance 590 Weight 83.007 kg Intake: Oral (ml) 240 IV Infused (ml) 1550 Lr 1,000 ml @ 100 mls/hr 550 IV CONT JORDAN Rx#: [id number] Output: Urine (ml) 1200 Catheter 400 Vital Signs Temp Pulse Resp BP Pulse Ox 36.4 C 74 17 133/85 H 88 L 05/20/17 07:44 05/20/17 10:55 05/20/17 10:55 05/20/17 11:16 05/20/17 10:55 Laboratory Results 05/20/17 04:30 05/20/17 04:30 ICD10 Worksheet Patient Problems: Problems Problem Status Onset C1 cervical fracture Acute Subdural hematoma Acute Urethral bleeding Acute COPD (chronic obstructive pulmonary disease) Acute Chronic disease mgmt/Transitional care Acute Fall Acute Hematoma Acute Hypoxia Acute Palliative care encounter Acute Pneumonia Acute
[2017-05-20] MEDS ORDERED: PNEUMOCOCCAL 0.5ML VACCINE VIAL IM ONE (11:39)
--- NOTE | 2017-05-20 11:41 | ASMTCMCOM ---
CM Note CM Note Notes: Spoke with Aman at to review pt current status. Per our therapies (SP, OT and PT) patient back to baseline. Discussed with Aman that SNF consider staff pay close attention to patient status given recent falls. Transfer set up for 1:30 pm. RN and ICU charge aware. CM available if other needs arise. Date Signed: 05/20/2017 11:41 AM Electronically Signed By:Xiomy Mukherjee RN
--- NOTE | 2017-05-20 11:42 | GDS ---
[f rep st] DISCHARGE SUMMARY DISCHARGE DIAGNOSES: 1. Fall from wheelchair. 2. Left frontal contusion. 3. Left occipital subdural hematoma (non-operative, 4 mm, stable). 4. History of cerebrovascular accident. 5. High-grade cervical stenosis. 6. Cervical fracture, nonoperative at this point. 7. Contusion, left shoulder, left upper arm. 8. Chronic obstructive pulmonary disease with chronic oxygen requirement. 9. Urethral injury secondary to self-extraction of inflated Hernandez catheter requiring replacement of Hernandez catheter using a flexible cystoscope, guidewire, and Councill-tip Hernandez. HISTORY OF PRESENT ILLNESS: The patient was admitted last evening. Note he had been discharged on and then returned on the April,. His CT of his head has been stable on follow up examination. His urine is clearing. He will return to [facility]. He will follow up with Dr. Leong for possible cervical surgery and with Dr. Quinones for his urologic injury. CONDITION AT DISCHARGE: Improved. MEDICATIONS: Include Tylenol 1000 mg every 8 hours for pain control, take Cymbalta 60 mg daily, foli c acid 1 mg daily, gabapentin 600 mg 3 times a day, guaifenesin 600 mg twice a day, DuoNeb 3 mL q.6 h ours, lisinopril 20 mg daily, multivitamin daily, Zantac 150 mg twice a day, Flomax 0.4 mg daily, and morphine IR 15 mg tablet 1 every 6 hours. HOSPITAL COURSE: The patient was admitted through the emergency department. A Hernandez catheter was re placed by Dr. Quinones. Followup CAT scan showed no progression of the 4 mm left occipitoparietal subdu ral. He is awake and alert today. Note, he had complained of left shoulder and left forearm pain. X-ray showed no evidence of fracture and it is presumed these are contusions. He is set for discharge at this point. /[id number]/MODL
[2017-05-20] MEDS ORDERED: IPRATROPIUM/ALBUTEROL 3 ML DEYVIAL IH SCH (12:00)
--- NOTE | 2017-05-20 15:34 | ASDISCHSUM ---
Discharge Information Plan Status:SNF Medically Cleared to Leave:05/20/2017 Discharge Date:05/20/2017 11:48 AM CM D/C Disposition:[facility] Facility ADT D/C Disposition:Home Health Service Projected Discharge Date:05/20/2017 11:00 AM Transportation at D/C:Wheelchair Van Discharge Delay Reason: Follow-Up Date:05/20/2017 11:00 AM Discharge Slot: Final Diagnosis: Placement Information Referral Type:*Group Home/SNF Referral ID:[id number] Provider Name:OBDULIA Cantu Address 1:[address] Phone Number: Address 2: Fax Number: City:[place] Selection Factors: State:[place] Patient Contact Information Contact Name:KATHERYN Relationship:Friend Address: Work Phone: City: [facility] Phone: [facility] Code: Email: Financial Information Financial Class: Primary Plan Desc:MEDICARE INPATIENT Primary Plan Number:[id number] Secondary Plan Desc:MEDICAID [place] Secondary Plan Number:[id number] Assessment Information LACE LACE Length of stay for Answers: Less than 1 day current admission Acuity / Level of Care Answers: Was the patient admitted to hospital via the emergency department? Yes: Comorbidities - select Answers: Cerebrovascular disease all that apply Emergency dept visits in Answers: 1 last 6 months Score: 5 Date Signed: 05/20/2017 10:49 AM Electronically Signed By:Xiomy Mukherjee RN [facility] CM Progress Note CM Note CM Note Notes: Patient reviewed in am rounds. Ready for dc back to . Referral in allscripts. RN aware. Call to and they will arrange transport. Patient will need oxygen. Wheel chair is ok. CM available if further needs arise. Date Signed: 05/20/2017 10:53 AM Electronically Signed By:Xiomy Mukherjee RN [facility] CM Progress Note CM Note CM Note Notes: Spoke with Aman at to review pt current status. Per our therapies (SP, OT and PT) patient back to baseline. Discussed with Aman that SNF consider staff pay close attention to patient status given recent falls. Transfer set up for 1:30 pm. RN and ICU charge aware. CM available if other needs arise. Date Signed: 05/20/2017 11:41 AM Electronically Signed By:Xiomy Mukherjee RN [facility] CM Progress Note CM Note CM Note Notes: Message left with Aman at to clarify Urology's reference to gentle traction.I spoke to Dr. Esquivel's MA who informed me that "gentle traction" refers to temple being off statlock. Spoke to Fritzt caregiver at [facility] for Mr. Evans and reiterated information on gentle traction and need for urology follow up.CM available if further needs arise. Date Signed: 05/20/2017 03:31 PM Electronically Signed By:Xiomy Mukherjee RN Intervention Information
[2017-05-20] MEDS ORDERED: GABAPENTIN 300 MG CAP PO SCH (16:00)
== END 2017-05-20 11:48 | disposition home health service (06) | DRG 83 ==
LOC: EDUNIT# → F2N 22:07
PROVIDERS: ADMIT Surgery; ATTEND Surgery
PROC: 0T9B70Z Drainage of Bladder with Drainage Device, Via Natural or Artificial Opening (ICD-10-PCS; principal; 2017-05-19)
PROC: 0TJB8ZZ Inspection of Bladder, Via Natural or Artificial Opening Endoscopic (ICD-10-PCS; principal; 2017-05-19)
DX: S06.5X9A Traumatic subdural hemorrhage with loss of consciousness of unspecified duration, initial encounter (principal); S12.000A Unspecified displaced fracture of first cervical vertebra, initial encounter for closed fracture; S49.92XA Unspecified injury of left shoulder and upper arm, initial encounter; W05.0XXA Fall from non-moving wheelchair, initial encounter; Y92.199 Unspecified place in other specified residential institution as the place of occurrence of the external cause; R31.9 Hematuria, unspecified; R26.9 Unspecified abnormalities of gait and mobility; B19.20 Unspecified viral hepatitis C without hepatic coma; I69.998 Other sequelae following unspecified cerebrovascular disease; J44.9 Chronic obstructive pulmonary disease, unspecified; I10 Essential (primary) hypertension; M48.02 Spinal stenosis, cervical region; Z99.81 Dependence on supplemental oxygen; Z96.0 Presence of urogenital implants; Z23 Encounter for immunization
CPT/HCPCS: 92610-GN; 97162-GP; 97166-GO; C1769; G0009; G8978-GP-CL; G8979-GP-CK; G8990-GO-CL; G8991-GO-CK; G8996-GN-CJ; G8997-GN-CI

== ENCOUNTER 2017-06-01 13:12 | Emergency (ER) | payer OTHER, MEDICAID ==
[2017-06-01] MEDS ORDERED: NS 1,000 ML IV ONE (13:19)
--- NOTE | 2017-06-01 13:19 | EDPHY ---
H & P Stated Complaint: abd pain Time Seen by Provider: 06/01/17 13:12 HPI/ROS: CHIEF COMPLAINT: Abdominal pain HISTORY OF PRESENT ILLNESS: The patient is brought to the emergency department by ambulance with complaints of abdominal pain x3 days. The patient has a history of multiple medical problems. He was sustained a fall several weeks ago and was evaluated in the emergency department. The patient is a known non operative spinal fracture which he currently is wearing cervical collar. The patient has a chronic indwelling Hernandez catheter. He has chronic lung disease and is oxygen dependent. The patient denies any fever, vomiting or diarrhea. He complains of moderate bilateral lower abdominal pain. REVIEW OF SYSTEMS: A comprehensive 10 point review of systems is otherwise negative aside from elements mentioned in the history of present illness. Source: Patient Exam Limitations: No limitations - Medical/Surgical History Hx Asthma: No Hx Chronic Respiratory Disease: Yes Hx Diabetes: No Hx Cardiac Disease: No Hx Renal Disease: No Hx Cirrhosis: No Hx Alcoholism: No Hx HIV/AIDS: No Hx Splenectomy or Spleen Trauma: No Other PMH: COPD. HTN. Spinal stenosis. Hepatitis. Cognitive communication deficit. Swelling to left upper arm, wheel chair dependent - Social History Smoking Status: Unknown if ever smoked - Physical Exam Exam: General Appearance: Elderly male, disheveled, no acute distress Eyes: Pupils equal and round no pallor or injection ENT, Mouth: Poor dentition Respiratory: There are no retractions, lungs are clear to auscultation Cardiovascular: Regular rate and rhythm Gastrointestinal: Minimal tenderness to palpation right lower quadrant Neurological: A&O, normal motor function, normal sensory exam, normal cranial nerves Skin: Warm and dry, no rashes Musculoskeletal: Neck is supple nontender Extremities: symmetrical, full range of motion Constitutional: Initial Vital Signs Temperature (C) 37.7 C 06/01/17 13:15 Heart Rate 93 06/01/17 13:15 Respiratory Rate 18 06/01/17 13:15 Blood Pressure 113/77 06/01/17 13:15 O2 Sat (%) 92 06/01/17 13:15 O2 Delivery Mode Nasal Cannula O2 (L/minute) 2 Allergies/Adverse Reactions: Penicillins Allergy (Verified 05/13/17 00:04) vecuronium Allergy (Verified 05/13/17 00:04) Home Medications: Medication Instructions Recorded DULoxetine [Cymbalta 60 MG (*)] 60 mg PO DAILY 04/03/17 Folic Acid [Folic Acid 1 MG (*)] 1 mg PO DAILY 04/03/17 Multivitamins [Multivitamin (*)] 1 each PO DAILY 04/03/17 Ranitidine HCl 150 mg PO BID 04/03/17 Tamsulosin HCl [Flomax 0.4 MG (*)] 0.4 mg PO DAILY #30 cap 04/05/17 Gabapentin [Neurontin 300 MG (*)] 600 mg PO TID 05/13/17 Ipratropium/Albuterol [Duoneb (*)] 3 ml IH Q6HRS 05/13/17 Lisinopril [Zestril 20 mg (*)] 20 mg PO DAILY 05/13/17 morphINE IR [morphINE IR 15 mg (*)] 15 mg PO Q6HRS PRN tab 05/17/17 guaiFENesin [Mucinex 600 MG (*)] 600 mg PO BID 05/19/17 Acetaminophen [Tylenol ES 500 mg 1,000 mg PO Q8H tab 05/20/17 (*)] Medical Decision Making ED Course/Re-evaluation: The patient presents to the ED for evaluation of lower abdominal pain. The patient has primarily midline abdominal tenderness above his pubic symphysis. The patient is a difficult historian secondary to his cognitive dysfunction. The patient is afebrile in the emergency department. His vital signs are stable. He has no evidence of peritoneal symptoms. The patient's workup included laboratory studies which demonstrates a normal CBC, serum chemistries, lipase and liver function test. Given the patient's tenderness he was taken for CT scan of the abdomen pelvis which demonstrates his Hernandez catheter balloon is in the urethra. There is no evidence of an acute abdominal perforation, obstruction or appendicitis. The patient's Hernandez catheter was repositioned. The patient did feel better after this maneuver. The patient will be discharged back to his long term. I re-evaluated the patient at 3:00 p.m.. He is pain-free at this point time. The patient's CT scan does demonstrate some atelectatic changes at his lung bases. He has no clinical evidence of pneumonia. Differential Diagnosis: Differential diagnosis considered includes appendicitis, perforation, obstruction, urinary tract infection, Hernandez catheter malfunction - Data Points Laboratory Results: Laboratory Results 06/01/17 13:23 06/01/17 13:23 06/01/17 06/01/17 06/01/17 13:33 13:23 13:23 WBC 9.12 10^3/uL 10^3/uL (3.80-9.50) RBC 6.27 10^6/uL 10^6/uL (4.40-6.38) Hgb 16.2 g/dL g/dL (13.7-17.5) POC Hgb 10.2 gm/dL L gm/dL (13.7-17.5) Hct 50.5 % % (40.0-51.0) POC Hct 30 % L % (40-51) MCV 80.5 fL L fL (81.5-99.8) MCH 25.8 pg L pg (27.9-34.1) MCHC 32.1 g/dL L g/dL (32.4-36.7) RDW 17.1 % H % (11.5-15.2) Plt Count 321 10^3/uL 10^3/uL (150-400) MPV 8.4 fL L fL (8.7-11.7) Neut % (Auto) 71.8 % % (39.3-74.2) Lymph % (Auto) 18.6 % % (15.0-45.0) Frontier % (Auto) 8.7 % % (4.5-13.0) Eos % (Auto) 0.4 % L % (0.6-7.6) Baso % (Auto) 0.3 % % (0.3-1.7) Nucleat RBC Rel Count 0.0 % % (0.0-0.2) Absolute Neuts (auto) 6.54 10^3/uL H 10^3/uL (1.70-6.50) Absolute Lymphs (auto) 1.70 10^3/uL 10^3/uL (1.00-3.00) Absolute Monos (auto) 0.79 10^3/uL 10^3/uL (0.30-0.80) Absolute Eos (auto) 0.04 10^3/uL 10^3/uL (0.03-0.40) Absolute Basos (auto) 0.03 10^3/uL 10^3/uL (0.02-0.10) Absolute Nucleated RBC 0.00 10^3/uL 10^3/uL (0-0.01) Immature Gran % 0.2 % % (0.0-1.1) Immature Gran # 0.02 10^3/uL 10^3/uL (0.00-0.10) POC Sodium 150 mEq/L H mEq/L (134-144) Sodium 143 mEq/L mEq/L (134-144) POC Potassium 2.8 mEq/L L mEq/L (3.3-5.0) Potassium 5.0 mEq/L mEq/L (3.5-5.2) POC Chloride 114 mEq/L H mEq/L (97-110) Chloride 96 mEq/L L mEq/L (97-110) Carbon Dioxide 27 mEq/l mEq/l (22-31) Anion Gap 20 mEq/L H mEq/L (8-16) POC BUN 20 mg/dL mg/dL (7-23) BUN 26 mg/dL H mg/dL (7-23) Creatinine 0.9 mg/dL mg/dL (0.7-1.3) POC Creatinine 0.4 mg/dL L mg/dL (0.7-1.3) Estimated GFR > 60 Glucose 107 mg/dL H mg/dL (70-100) POC Glucose 63 mg/dL L mg/dL (70-100) Calcium 10.9 mg/dL H mg/dL (8.5-10.4) Phosphorus 3.9 mg/dL mg/dL (2.5-4.5) Total Bilirubin 0.9 mg/dL mg/dL (0.1-1.4) Conjugated Bilirubin 0.3 mg/dL mg/dL (0.0-0.5) Unconjugated Bilirubin 0.6 mg/dL mg/dL (0.0-1.1) AST 27 IU/L IU/L (17-59) ALT 40 IU/L IU/L (21-72) Alkaline Phosphatase 107 IU/L IU/L (38-126) Total Protein 9.9 g/dL H g/dL (6.3-8.2) Albumin 4.8 g/dL g/dL (3.5-5.0) Lipase 43 IU/L IU/L (23-300) Medications Given: Discontinued Medications Sodium Chloride (Ns) 1,000 mls @ 0 mls/hr IV EDNOW ONE; Wide Open PRN Reason: Protocol Stop: 06/01/17 13:20 Last Admin: 06/01/17 13:37 Dose: 1,000 mls Point of Care Test Results: 06/01/17 13:33 POC Sodium 150 H POC Potassium 2.8 L POC Chloride 114 H POC BUN 20 POC Creatinine 0.4 L POC Glucose 63 L Departure - Departure Disposition: Home, Routine, Self-Care Clinical Impression: Malfunction of Hernandez catheter, Acute abdominal pain Condition: Good Instructions: Abdominal Pain (ED) Additional Instructions: 1. Your Hernandez catheter balloon was in your urethra which resulted in your pain today. 2. Return to the emergency department for worsening abdominal pain, fever, vomiting or other concerns. Referrals: DAKOTA ROSS [Other] - As per Instructions
[2017-06-01 13:26] LABS: % IMMATURE GRANULYOCYTES 0.2 % (0.0-1.1); ABSOLUTE IMMATURE GRANULOCYTES 0.02 10^3/uL (0.00-0.10); ADD DIFF? NO; ADD MORPH? NO; ADD SCAN? NO; ATYPICAL LYMPHOCYTE FLAG 50 (0-99); FRAGMENT RBC FLAG 0 (0-99); HEMATOCRIT 50.5 % (40.0-51.0); HEMOGLOBIN 16.2 g/dL (13.7-17.5); LEFT SHIFT FLG 0 (0-99); LIPEMIA HEMOLYSIS FLAG 80 (0-99); MEAN CELL HEMOGLOBIN 25.8 pg (27.9-34.1); MEAN CELL HEMOGLOBIN CONCENTR. 32.1 g/dL (32.4-36.7); MEAN CELL VOLUME 80.5 fL (81.5-99.8); MEAN PLATELET VOLUME 8.4 fL (8.7-11.7); PLATELET CLUMPS FLAG 10 (0-99); PLATELET COUNT 321 10^3/uL (150-400); RED BLOOD CELL COUNT 6.27 10^6/uL (4.40-6.38); RED CELL DISTRIBUTION WIDTH 17.1 % (11.5-15.2)
[2017-06-01 13:38] LABS: ALANINE AMINOTRANSFERASE 40 IU/L (21-72); ALBUMIN 4.8 g/dL (3.5-5.0); ALKALINE PHOSPHATASE 107 IU/L (38-126); ANION GAP 20 mEq/L (8-16); ASPARTATE AMINOTRANSFERASE 27 IU/L (17-59); BILIRUBIN,TOTAL 0.9 mg/dL (0.1-1.4); BILIRUBIN-CONJUGATED 0.3 mg/dL (0.0-0.5); BILIRUBIN-UNCONJUGATED 0.6 mg/dL (0.0-1.1); CALCIUM 10.9 mg/dL (8.5-10.4); CARBON DIOXIDE 27 mEq/l (22-31); CHLORIDE 96 mEq/L (97-110); CREATININE 0.9 mg/dL (0.7-1.3); GLOMERULAR FILTRATION RATE > 60; GLUCOSE 107 mg/dL (70-100); SODIUM 143 mEq/L (134-144); TOTAL PROTEIN 9.9 g/dL (6.3-8.2)
[2017-06-01 14:09] VITALS: RESP 18; O2SAT 92
[2017-06-01] MEDS ORDERED: IOPAMIDOL (ISOVUE-300) 100 ML BTL ONE (14:17)
[2017-06-01 14:37] VITALS: BP 119/76; PULSE 88; TEMP 99.5
--- NOTE | 2017-06-01 16:02 | ASDISCHSUM ---
Discharge Information Plan Status:SNF Medically Cleared to Leave: Discharge Date: D/C Disposition:Senior Living Facility ADT D/C Disposition:Home, Routine, Self-Care Projected Discharge Date: Transportation at D/C:ALS/BLS Discharge Delay Reason: Follow-Up Date: Discharge Slot: Final Diagnosis: Placement Information Patient Contact Information Contact Name:KATHERYN Relationship:Friend Address: Work Phone: City: [facility] Phone: State/Zip Code: Email: Financial Information Financial Class: Primary Plan Desc:MEDICARE OUTPATIENT Primary Plan Number:[id number] Secondary Plan Desc:MEDICAID [place] Secondary Plan Number:[id number] Assessment Information LACE LACE Acuity / Level of Care Answers: No. 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; left voicemail. However, did not hear back within reasonable time and so set up A MR non-emergent stretcher. PCS completed, original placed in med records to be scanned. PCS copy provid ed to EMS.
== END 2017-06-01 16:36 | disposition home or self-care (01) ==
LOC: EDUNIT#
DX: R10.31 Right lower quadrant pain (principal); J44.9 Chronic obstructive pulmonary disease, unspecified; I10 Essential (primary) hypertension; T83.098A Other mechanical complication of other urinary catheter, initial encounter; E86.9 Volume depletion, unspecified; Y73.2 Prosthetic and other implants, materials and accessory gastroenterology and urology devices associated with adverse incidents
CPT/HCPCS: 74177; 96360; 99285; Q9967; 82947-QW

== ENCOUNTER 2017-06-03 15:11 | Emergency (ER) | payer OTHER, MEDICAID ==
--- NOTE | 2017-06-03 15:23 | EDPHY ---
H & P Stated Complaint: temple insertion - Medical/Surgical History Hx Asthma: No Hx Chronic Respiratory Disease: Yes Hx Diabetes: No Hx Cardiac Disease: No Hx Renal Disease: No Hx Cirrhosis: No Hx Alcoholism: No Hx HIV/AIDS: No Hx Splenectomy or Spleen Trauma: No Other PMH: COPD. HTN. Spinal stenosis. Hepatitis. Cognitive communication deficit. Swelling to left upper arm. - Social History Smoking Status: Former smoker Time Seen by Provider: 06/03/17 15:18 HPI/ROS: CHIEF COMPLAINT: Pulled Temple catheter out HISTORY OF PRESENT ILLNESS: 62-year-old male history of chronic indwelling Temple catheter arrives via ambulance from [facility] after he accidentally pulled his Temple catheter last evening. He has been wearing a diaper. Staff also informed EMS that the patient was complaining of seeing riding on the sinha , concerned he is hallucinating possibly secondary to UTI. He has no complaints of pain or discomfort. He denies: Fever, chills, nausea, vomiting, chest pain, cough pain, headache REVIEW OF SYSTEMS: A ten point review of systems was performed and is negative with the exception of the items mentioned in the HPI PAST MEDICAL & SURGICAL HISTORY: Wheelchair-bound. COPD. Known non operative cervical fracture current wearing a cervical collar. Chronic indwelling Temple catheter. Chronic lung disease oxygen dependent. SOCIAL HISTORY: lives at [facility] PHYSICAL EXAM (Prior to examination, patient consented to physical exam, hands were washed and my usual and customary physical exam procedures followed) 1) GENERAL: alert and oriented. Appears to be in no acute distress. Answering questions appropriately 2) HEAD: Normocephalic, atraumatic 3) HEENT: Pupils equal, round, reactive to light bilaterally. Sclera anicteric. 4) NECK: Cervical collar in place 5) LUNGS: Clear auscultation bilaterally, no wheezes, no rhonchi, no retractions. Breathing comfortably. 6) HEART: Regular rate and rhythm, no murmur, no heave, no gallop. 7) ABDOMEN: No guarding, no rebound, no focal tenderness, negative McBurney's, negative Heredia's, negative Rovsing's, negative peritoneal sign, unable to elicit any abdominal pain 8) MUSCULOSKELETAL: Moving all extremities, no focal areas of tenderness, no obvious trauma. No peripheral edema or discoloration. 9) BACK: No CVA tenderness, no midline vertebral tenderness, no fluctuance, no step-off, no obvious trauma, no visual or palpable abnormality. 10) SKIN: No rash, no petechiae. 11) : Wet diaper, no signs of trauma or bleeding, no urethral meatus bleeding DIFFERENTIAL DIAGNOSIS: In no particular include but limited to urinary tract infection, urosepsis, pyelonephritis, pneumonia (Yao Burns) Constitutional: Initial Vital Signs O2 Sat (%) 93 06/03/17 15:15 O2 Delivery Mode Nasal Cannula O2 (L/minute) 3 Allergies/Adverse Reactions: vecuronium Allergy (Verified 05/13/17 00:04) Home Medications: Medication Instructions Recorded DULoxetine [Cymbalta 60 MG (*)] 60 mg PO DAILY 04/03/17 Folic Acid [Folic Acid 1 MG (*)] 1 mg PO DAILY 04/03/17 Multivitamins [Multivitamin (*)] 1 each PO DAILY 04/03/17 Ranitidine HCl 150 mg PO BID 04/03/17 Gabapentin [Neurontin 300 MG (*)] 600 mg PO TID 05/13/17 Ipratropium/Albuterol [Duoneb (*)] 3 ml IH Q6HRS PRN 05/13/17 Lisinopril [Zestril 20 mg (*)] 20 mg PO DAILY 05/13/17 morphINE IR [morphINE IR 15 mg (*)] 15 mg PO Q6HRS PRN tab 05/17/17 guaiFENesin [Mucinex 600 MG (*)] 600 mg PO BID 05/19/17 Acetaminophen [Tylenol ES 500 mg 1,000 mg PO Q8H tab 05/20/17 (*)] Tamsulosin HCl [Flomax 0.4 MG (*)] 0.4 mg PO HS 06/04/17 oxyCODONE HCL/ACETAMINOPHEN 1 each PO Q4HRS PRN 06/04/17 [Percocet 10-325 mg Tablet] Medical Decision Making ED Course/Re-evaluation: 5:00 p.m.: Care turned over to Dr. Mary Baron at this time. Multiple attempts by ER staff to pass Temple catheter were unsuccessful. Dr. Baron has spoken with the urologist on-call who will come to the ER to evaluate patient. ( Yao Burns) 5pm: The ED staff tried to pass a Temple catheter. Multiple unsuccessful attempts. Old medical record reviewed. Consulted Dr. Lou, will see pt in ED. 10:30pm: Dr. Lou present in ED. 11pm: Dr. Lou trying to place temple catheter. Signed over to Dr. Hines at shift change. If Dr. Bill able to pass a Temple catheter, the patient will be discharged back to the nursing facility. Otherwise he will need to go the operating room. This patient also presented with a fever. We have been unable to collect a urinalysis. I suspect that this patient either has a urinary tract infection or viral syndrome. Once the Temple catheter is placed, the urine will be sent for urinalysis, and if indicated, a culture. (Mary Baron) Differential Diagnosis: Differential diagnosis includes pyelonephritis, cholecystitis, influenza, cellulitis, pneumonia, abscess, meningitis. (Mary Baron) - Data Points Laboratory Results: Laboratory Results 06/03/17 16:10 06/03/17 16:10 Microbiology Results: MICROBIOLOGY 06/03/17 16:40 Blood Blood Culture - Final Enterococcus Faecalis 06/03/17 16:10 Blood Blood Culture - Final Enterococcus Faecalis 06/03/17 16:10 Blood Blood Panel (PCR) - Final Enterococcus Species Medications Given: Discontinued Medications Acetaminophen (Tylenol) 1,000 mg PO EDNOW ONE Stop: 06/03/17 16:14 Last Admin: 06/03/17 17:49 Dose: 1,000 mg Lidocaine (Uroject Lidocaine 2% Jelly) 20 ml UR EDNOW ONE Stop: 06/03/17 22:20 Last Admin: 06/04/17 00:09 Dose: Not Given Departure - Departure Disposition: Home, Routine, Self-Care Clinical Impression: Encounter for Temple catheter replacement Condition: Good Instructions: Temple Catheter Placement and Care (ED) Referrals: DAKOTA GARCIA [Other] - As per Instructions Dionicio Lou MD [Medical Doctor] - As per Instructions (Call to make an appointment.)
[2017-06-03] MEDS ORDERED: ACETAMINOPHEN 500 MG TAB PO ONE (16:13)
[2017-06-03 16:25] LABS: % IMMATURE GRANULYOCYTES 0.4 % (0.0-1.1); ABSOLUTE IMMATURE GRANULOCYTES 0.04 10^3/uL (0.00-0.10); ADD DIFF? NO; ADD MORPH? NO; ADD SCAN? NO; ATYPICAL LYMPHOCYTE FLAG 20 (0-99); FRAGMENT RBC FLAG 0 (0-99); HEMATOCRIT 42.1 % (40.0-51.0); HEMOGLOBIN 13.7 g/dL (13.7-17.5); LEFT SHIFT FLG 0 (0-99); LIPEMIA HEMOLYSIS FLAG 80 (0-99); MEAN CELL HEMOGLOBIN 25.7 pg (27.9-34.1); MEAN CELL HEMOGLOBIN CONCENTR. 32.5 g/dL (32.4-36.7); MEAN PLATELET VOLUME 8.3 fL (8.7-11.7); PLATELET CLUMPS FLAG 0 (0-99); PLATELET COUNT 288 10^3/uL (150-400); RED BLOOD CELL COUNT 5.33 10^6/uL (4.40-6.38); RED CELL DISTRIBUTION WIDTH 15.5 % (11.5-15.2)
[2017-06-03 16:39] LABS: ANION GAP 12 mEq/L (8-16); BILIRUBIN,TOTAL 0.6 mg/dL (0.1-1.4); CALCIUM 9.8 mg/dL (8.5-10.4); CARBON DIOXIDE 26 mEq/l (22-31); CHLORIDE 99 mEq/L (97-110); CREATININE 0.8 mg/dL (0.7-1.3); GLOMERULAR FILTRATION RATE > 60; GLUCOSE 100 mg/dL (70-100); POTASSIUM 4.6 mEq/L (3.5-5.2); SODIUM 137 mEq/L (134-144)
[2017-06-03] MEDS ORDERED: LIDOCAINE 2% JELLY 20 ML (UROJECT) ONE (16:44)
[2017-06-03 18:10] LABS: APTT 29.1 SEC (23.0-38.0)
[2017-06-03 18:22] LABS: INR 1.15 (0.83-1.16); PROTIME(PATIENT) 14.6 SEC (12.0-15.0)
[2017-06-03] MEDS ORDERED: LIDOCAINE 2% JELLY 20 ML (UROJECT) UR ONE (22:19)
[2017-06-04 00:11] LABS: COLOR RED; LEUKOCYTE ESTERASE,URINE 2+ (NEGATIVE); NITRITE,URINE POSITIVE (NEGATIVE)
[2017-06-04 00:15] LABS: BACTERIA 4+ /hpf (NONE SEEN); RBC,URINE 50-182 /hpf (0-3); WBC,URINE 50-182 /hpf (0-3)
[2017-06-04 01:42] VITALS: BP 120/78; PULSE 69; RESP 18; TEMP 97.7; O2SAT 97
--- NOTE | 2017-06-07 12:35 | GCON ---
[f rep st] CONSULTATION CONSULT NOTE AND PROCEDURE NOTE DATE OF CONSULTATION: 06/03/2017 We were consulted by the emergency physician secondary to inability of nursing staff to place a Hernandez catheter. The patient lives at a rehab facility, and his Hernandez catheter became dislodged, by report , with the balloon inflated. He seems to be a fairly reliable historian, but not 100% confident in h is statements. He had a Hernandez catheter placed previously by a urologist with a cystoscope, korey schneider 3-4 weeks ago. He does have some blood at the meatus. He is currently in no apparent distress. He is not able to void since this Hernandez catheter was removed. PAST MEDICAL HISTORY: Per chart. History of some mild dementia. History of mild renal disease. CURRENT MEDICATIONS: Reviewed. LABORATORY DATA: No laboratory values to check. REVIEW OF SYSTEMS: Template review of systems was performed. He denies any fevers, chills, chest pa in, shortness of breath. No nausea, vomiting. No abdominal pain. He denies any significant bladder pain or flank pain. PHYSICAL EXAMINATION: LUNGS: Clear. HEART: Regular. ABDOMEN: Soft, nontender, nondistended. No real suprapubic tenderness. GENITOURINARY: He does have some blood at the meatus. Normal male anusha laura. EXTREMITIES: Normal lower extremity edema. ASSESSMENT/PLAN: Patient with urinary retention. A Hernandez catheter was removed traumatically. Under sterile conditions, I tried to place a coude 16, and also tried a 22 Trinidadian, catheter that will be p laced. PROCEDURE: A flexible cystoscopy was performed. He was noted to have a posterior false passage. Th e flexible cystoscope was able to be passed up into the bladder. The wire was placed into the bladde r under direct vision. The bladder wall was met and the elevated wall visualized. Due to hematuria, I placed the 18 [place] catheter into the bladder, with return of fairly clear urine. I rec ommended the patient follow up with me in one month for a voiding trial, or he can follow up sooner i f he is having any problems. /[id number]/MODL
== END 2017-06-04 01:38 | disposition home or self-care (01) ==
LOC: EDUNIT#
DX: Z46.6 Encounter for fitting and adjustment of urinary device (principal); J44.9 Chronic obstructive pulmonary disease, unspecified; I10 Essential (primary) hypertension; Z87.891 Personal history of nicotine dependence
CPT/HCPCS: 71020; 99284; C1769

== ENCOUNTER 2017-06-04 10:05 | Inpatient (IN) | payer OTHER, MEDICAID ==
--- NOTE | 2017-06-04 10:31 | EDPHY ---
HPI/HX/ROS/PE/MDM Narrative: CHIEF COMPLAINT: Admission for IV antibiotics HPI: This patient is a 62 year old male presenting for admission following positive blood culture results. He was evaluated yesterday after accidentally removing his indwelling Hernandez catheter. Dr. Cardoso, urologist, consulted and was able to place a catheter. Blood cultures obtained yesterday were positive. I consulted with Dr. Licona this morning, plan to admit this patient for IV antibiotics. The patient is aware of this plan. His pain is unchanged from his previous visits, primarily lower abdominal. He has no further complaints or new concerns. REVIEW OF SYSTEMS: Aside from elements discussed in the HPI, a comprehensive 10-point review of systems was reviewed and is negative. PMH: COPD. Hypertension. Hepatitis. Spinal stenosis. Wheelchair dependent. Cognitive communication deficit. SOCIAL HISTORY: Lives at [facility]. . PHYSICAL EXAM: General:Patient is alert, in no acute distress. Head: Discolored round lump on left forehead. ENT:Eyes are normal to inspection. Absent dentition. ENT inspection otherwise normal. Neck: C-collar in place. Respiratory:No respiratory distress. Breath sounds normal bilaterally. Cardiovascular: Regular rate and rhythm. Strong peripheral pulses. Normal cap refill. Abdomen:The abdomen is nontender to palpation. There are no peritoneal signs. There are normal bowel sounds. Back: Normal to inspection. No tenderness to palpation. Genitourinary: Hernandez catheter in place. Urine appears cloudy. Skin: Normal color. No rash. Warm and dry. Extremities: Normal appearance. Full range of motion. Neuro: Oriented x3. Normal motor function. Normal sensory function. ED Course: 62 year old male presents for admission for IV antibiotic treatment of bacteremia. Blood cultures positive for enterococcus. He was noted to be febrile yesterday. I spoke with Dr. Licona, infectious disease specialist, prior to this patient's arrival. Patient confirms his allergy to but is unable to coherently describe his reaction to penicillin. He has successfully been treated with ceftriaxone in the past. Plan to administer cefepime. This can have some cross-reactivity with penicillins. Plan to closely monitor the patient for signs of allergic reaction. 11:[address] Olivier, hospitalist. He accepts admission for bacteremia. - Data Points Laboratory Results: Laboratory Results 06/04/17 10:28 06/04/17 10:28 1106/04/17 10:28 10:28 WBC 8.67 10^3/uL 10^3/uL (3.80-9.50) RBC 5.94 10^6/uL 10^6/uL (4.40-6.38) Hgb 15.2 g/dL g/dL (13.7-17.5) Hct 47.2 % % (40.0-51.0) MCV 79.5 fL L fL (81.5-99.8) MCH 25.6 pg L pg (27.9-34.1) MCHC 32.2 g/dL L g/dL (32.4-36.7) RDW 15.2 % % (11.5-15.2) Plt Count 350 10^3/uL D 10^3/uL (150-400) MPV 8.5 fL L fL (8.7-11.7) Neut % (Auto) 81.8 % H % (39.3-74.2) Lymph % (Auto) 12.7 % L % (15.0-45.0) Weakley % (Auto) 4.2 % L % (4.5-13.0) Eos % (Auto) 0.6 % % (0.6-7.6) Baso % (Auto) 0.2 % L % (0.3-1.7) Nucleat RBC Rel Count 0.0 % % (0.0-0.2) Absolute Neuts (auto) 7.10 10^3/uL H 10^3/uL (1.70-6.50) Absolute Lymphs (auto) 1.10 10^3/uL 10^3/uL (1.00-3.00) Absolute Monos (auto) 0.36 10^3/uL 10^3/uL (0.30-0.80) Absolute Eos (auto) 0.05 10^3/uL 10^3/uL (0.03-0.40) Absolute Basos (auto) 0.02 10^3/uL 10^3/uL (0.02-0.10) Absolute Nucleated RBC 0.00 10^3/uL 10^3/uL (0-0.01) Immature Gran % 0.5 % % (0.0-1.1) Immature Gran # 0.04 10^3/uL 10^3/uL (0.00-0.10) Sodium 139 mEq/L mEq/L (134-144) Potassium 4.5 mEq/L mEq/L (3.5-5.2) Chloride 100 mEq/L mEq/L (97-110) Carbon Dioxide 23 mEq/l mEq/l (22-31) Anion Gap 16 mEq/L mEq/L (8-16) BUN 21 mg/dL mg/dL (7-23) Creatinine 0.7 mg/dL mg/dL (0.7-1.3) Estimated GFR > 60 Glucose 182 mg/dL H mg/dL (70-100) Calcium 10.2 mg/dL mg/dL (8.5-10.4) Medications Given: Acetaminophen (Tylenol) 1,000 mg PO Q8H JORDAN Stop: 12/01/17 12:29 Last Admin: 06/04/17 14:06 Dose: 1,000 mg Discontinued Medications Vancomycin/Sodium Chloride (Vancomycin 1 Gm (Premix)) 250 mls @ 250 mls/hr IV EDNOW ONE PRN Reason: Protocol Stop: 06/04/17 12:03 Last Admin: 06/04/17 11:21 Dose: 250 mls General Time Seen by Provider: 06/04/17 10:16 Initial Vital Signs: Initial Vital Signs Temperature (C) 36.9 C 06/04/17 10:29 Heart Rate 102 H 06/04/17 10:29 Respiratory Rate 20 06/04/17 10:29 Blood Pressure 122/89 H 06/04/17 10:29 O2 Sat (%) 96 06/04/17 10:29 O2 Delivery Mode Nasal Cannula O2 (L/minute) 4 Allergies/Adverse Reactions: Penicillins Allergy (Verified 05/13/17 00:04) vecuronium Allergy (Verified 05/13/17 00:04) Home Medications: Medication Instructions Recorded DULoxetine [Cymbalta 60 MG (*)] 60 mg PO DAILY 04/03/17 Folic Acid [Folic Acid 1 MG (*)] 1 mg PO DAILY 04/03/17 Multivitamins [Multivitamin (*)] 1 each PO DAILY 04/03/17 Ranitidine HCl 150 mg PO BID 04/03/17 Gabapentin [Neurontin 300 MG (*)] 600 mg PO TID 05/13/17 Ipratropium/Albuterol [Duoneb (*)] 3 ml IH Q6HRS PRN 05/13/17 Lisinopril [Zestril 20 mg (*)] 20 mg PO DAILY 05/13/17 morphINE IR [morphINE IR 15 mg (*)] 15 mg PO Q6HRS PRN tab 05/17/17 guaiFENesin [Mucinex 600 MG (*)] 600 mg PO BID 05/19/17 Acetaminophen [Tylenol ES 500 mg 1,000 mg PO Q8H tab 05/20/17 (*)] Tamsulosin HCl [Flomax 0.4 MG (*)] 0.4 mg PO HS 06/04/17 oxyCODONE HCL/ACETAMINOPHEN 1 each PO Q4HRS PRN 06/04/17 [Percocet 10-325 mg Tablet] Departure - Departure Disposition: [facility] Inpatient Acute Clinical Impression: Bacteremia Condition: Fair Report Scribed for: Den Thomas Report Scribed by: Liz Genao Date of Report: 06/04/17 Time of Report: 10:30 Physician Review and Approval Statement: Portions of this note were transcribed by an ED scribe. I personally performed the history, physical exam, and medical decision making; and confirm the accuracy of the information in the transcribed note.
[2017-06-04] MEDS ORDERED: CEFEPIME HCL 2 GM in D5W 100 ML IV ONE (10:45)
[2017-06-04] MEDS ORDERED: VANCOMYCIN HCL/NORMAL SALINE 250 ML IV ONE (11:04)
[2017-06-04 11:12] LABS: % IMMATURE GRANULYOCYTES 0.5 % (0.0-1.1); ABSOLUTE IMMATURE GRANULOCYTES 0.04 10^3/uL (0.00-0.10); ADD DIFF? NO; ADD MORPH? NO; ADD SCAN? NO; ATYPICAL LYMPHOCYTE FLAG 30 (0-99); FRAGMENT RBC FLAG 0 (0-99); HEMATOCRIT 47.2 % (40.0-51.0); HEMOGLOBIN 15.2 g/dL (13.7-17.5); LEFT SHIFT FLG 0 (0-99); LIPEMIA HEMOLYSIS FLAG 80 (0-99); MEAN CELL HEMOGLOBIN 25.6 pg (27.9-34.1); MEAN CELL HEMOGLOBIN CONCENTR. 32.2 g/dL (32.4-36.7); MEAN CELL VOLUME 79.5 fL (81.5-99.8); MEAN PLATELET VOLUME 8.5 fL (8.7-11.7); PLATELET CLUMPS FLAG 10 (0-99); PLATELET COUNT 350 10^3/uL (150-400); RED BLOOD CELL COUNT 5.94 10^6/uL (4.40-6.38); RED CELL DISTRIBUTION WIDTH 15.2 % (11.5-15.2)
[2017-06-04 11:15] LABS: ANION GAP 16 mEq/L (8-16); CALCIUM 10.2 mg/dL (8.5-10.4); CARBON DIOXIDE 23 mEq/l (22-31); CHLORIDE 100 mEq/L (97-110); CREATININE 0.7 mg/dL (0.7-1.3); GLOMERULAR FILTRATION RATE > 60; GLUCOSE 182 mg/dL (70-100); POTASSIUM 4.5 mEq/L (3.5-5.2); SODIUM 139 mEq/L (134-144)
--- NOTE | 2017-06-04 11:48 | ASMTCMCOM ---
CM Note CM Note Notes: I was asked by the ED [facility] former to call [facility] to inform them that patient's blood cultures (drawn yesterday in the ED) were positive and that he needed to return to [facility] for treatment. Keisha @ arranged for patient to be transported back to [facility]. Patient has had multiple admissions in past 3 months. His most recent visit yesterday was d/t him accidentally removing his chronic indwelling Hernandez. He was also c/o AMS, possible r/t a UTI. Anticipate patient will d/c back to [facility] when medically stable. Date Signed: 06/04/2017 11:47 AM Electronically Signed By:Ayde Fairbanks RN
[2017-06-04] MEDS ORDERED: ACETAMINOPHEN 325 MG TAB PO PRN (12:28)
[2017-06-04] MEDS ORDERED: ONDANSETRON 4 MG/2 ML VIAL IVP PRN (12:28)
[2017-06-04] MEDS ORDERED: NON-FORMULARY NEW DRUG (Oxycodone Hcl/Acetaminophen [Percocet 10-325 Mg Tablet] 1 EACH) PO PRN (12:29)
[2017-06-04] MEDS ORDERED: IPRATROPIUM/ALBUTEROL 3 ML DEYVIAL IH PRN (12:29)
--- NOTE | 2017-06-04 13:01 | GHP ---
[f rep st] HISTORY AND PHYSICAL DATE OF ADMISSION: 06/04/2017 CHIEF COMPLAINT: Bacteremia. HISTORY OF PRESENT ILLNESS: This is a 62-year-old male resident of [facility] who presented to the emergency department yesterday after he pulled his Hernandez catheter. He was subsequently discharged home. Today, he was called back after his blood cultures grew out Enterococcus. The patient reports some crampy abdominal pain. He denies any other acute complaints. 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 PAST MEDICAL HISTORY: 1. Hospitalization May 19, 2017, where he was hospitalized for a fall in which he sustained a non operative cervical fracture, left frontal contusion, and left occipital subdural hematoma. 2. Acute on chronic respiratory failure. 3. Chronic hepatitis. 4. History of substance abuse. 5. Cognitive communication deficits. 6. Spinal stenosis. 7. Chronic obstructive pulmonary disease. 8. Hypertension. PAST SURGICAL HISTORY: 1. TURP 5 years ago. 2. Tonsillectomy. 3. Laminectomy. HOME MEDICATIONS: Reviewed, refer to [facility]arket for details. ALLERGIES: Penicillin and vecuronium. SOCIAL HISTORY: The patient resides at [facility]. Full code status per Advance Directive form in his chart. FAMILY HISTORY: Reviewed and noncontributory. REVIEW OF SYSTEMS: Comprehensive 10-point review of systems was done and is negative, except for as mentioned in the HPI. PHYSICAL EXAM: VITAL SIGNS: Blood pressure 112/60, pulse of 84, respiratory rate 14, O2 saturation 98% on 2 L. Temperature afebrile. GENERAL: No acute distress. HEAD: Normocephalic, bruising and hematoma left forehead. EYES: PERRLA. Sclerae anicteric. MOUTH: Moist mucous membranes. NECK: Supple. CARDIOVASCULAR: S1, S2. No JVD. No lower extremity edema. PULMONARY: Lungs are clear. No wheezes, rales, or rhonchi. ABDOMEN: Soft, nontender, nondistended. No guarding or rebound tenderness. Normoactive bowel sounds. Hernandez is in place. EXTREMITIES: No clubbing or cyanosis. NEURO: Cranial nerves 2-12 grossly intact. NEURO: The patient does appear slightly confused. SKIN: Clear, no rashes. I did not examine him for decubitus. DIAGNOSTICS: WBC is 8.6, hemoglobin 15.2, hematocrit 47.2, platelets 350. Sodium 139, potassium 4.5, chloride 100, CO2 23, BUN 21, creatinine 0.7, glucose 182 calcium 10.2. A UA done yesterday positive nitrite, 2+ leukocyte esterase. Blood cultures gram-positive cocci. ASSESSMENT AND PLAN: This is a 62-year-old male, who presented to the emergency department yesterday after he pulled his Hernandez catheter, incidentally found to have: 1. Enterococcus bacteremia. Plan: The patient is allergic to penicillin and will start him on vancomycin. Infectious Disease has been consulted. We will repeat blood cultures in a few days, as well as consider echocardiogram to evaluate for vegetation. I will order the echo now. 2. History of acute on chronic respiratory failure due to chronic obstructive pulmonary disease. Plan: Continue home medications. Monitor respiratory status. 3. History of cognitive communication deficits. 4. History of chronic hepatitis. 5. History of spinal stenosis. 6. History of substance abuse. 7. History of fairly recent cervical fracture, in a hard C-collar. /[id number]/MODL MTDD
--- NOTE | 2017-06-04 13:42 | PDMN ---
Medical Necessity Medical necessity: Pt meets IP criteria per MD; est los >2 mn for eval/tx of bacteremia, admit for IV abx, ID consult, echo & repeat blood cxs; hx acute on chronic respiratory failure r/t COPD, htn, cognitive communication deficits, chronic hepatitis, spinal stenosis, recent cervical fx (in c-collar) & subdural hematoma; per H&P & order 06/04/17
[2017-06-04] MEDS: ACETAMINOPHEN 500 MG TAB PO SCH ×2 (14:06→20:30)
--- NOTE | 2017-06-04 16:23 | ECHO ---
[email or web address] [address] [address] Main: [phone] Fax: Transthoracic Echocardiogram Name: JONATHAN REYES MR#: [id number] Study Date: 06/04/2017 Study Time: 12:48 PM Date of : 1955 Age: 62 year(s) Height: 175.3 cm (69 in.) Weight: 77.11 kg (170 lb.) BSA: 1.93 m2 Gender: Male Examination: Echo Indication: Bacteremia Image Quality: Contrast: Requested by: Giovani Olivier BP: 109 mmHg/77 mmHg Heart Rate: Rhythm: Tachycardia Indication: Bacteremia Procedure Staff Medical Support Assistant: Jamison Latham Reading Physician: Ap Smith Requesting Provider: Conclusions: Normal size left ventricle. EF is 73 %. There is mild thickening of the mitral valve leaflets. There is no mitral valve regurgitation. The aortic valve is tri-leaflet. There is no aortic valve regurgitation. No aortic valve stenosis is present. No vegetations identified with in the confines of TTE. Consider PAULETTE if clinically indicated. No old studies for comparison. Measurements: Chambers Valvular Assessment AV/MV Valvular Assessment TV/PV Normal Normal Normal Name Value Range Name Value Range Name Value Range Ao Anyi (MM): 3.1 cm (2.2 cm-3.7 AV Vmax: 1.10 m/s (1 m/s-1.7 PV Vmax: 1.14 m/s (0.6 m/s-0.9 cm) m/s) m/s) IVSd (2D): 0.7 cm (0.6 cm-1.1 AV maxP mmHg ( - ) PV PGmax: 5 mmHg ( - ) cm) LVOT Vmax: 0.80 m/s (0.7 m/s-1.1 LVDd (2D): 3.7 cm (4.2 cm-5.9 m/s) cm) MV E Vmax: 0.58 m/s ( - ) LVDs (2D): 2.2 cm (2.1 cm-4 MV A Vmax: 0.78 m/s ( - ) cm) MV E/A: 0.74 ( - ) LVPWd (2D): 0.9 cm (0.6 cm-1 cm) LVEF (2D): 73 (>=54 %) Continued Measurements: Chambers Valvular Assessment AV/MV Name Value Name Value Patient: JONATHAN REYES Study Date: 06/04/2017 Page 1 of 2 12:48 PM LADs Lon.9 cm MV E' Septal: 0.05 m/s LA Area: 16.2 cm2 MV E/E' Septal: 10.80 MV E/E' Lateral: 5.40 Findings: Left Ventricle: Normal size left ventricle. No LV hypertrophy. Normal global systolic LV function. EF is 73 %. No regional wall motion abnormality. Diastolic dysfunction is present. . Right Ventricle: Normal size right ventricle. Normal RV function. Left Atrium: The left atrium is normal in size. Right Atrium: The right atrium is normal in size. Mitral Valve: Mild mitral valve leaflet calcification is present. There is mild thickening of the mitral valve leaflets. There is no mitral valve regurgitation. Aortic Valve: The aortic valve is tri-leaflet. Mild aortic cusp calcification is noted. There is no aortic valve regurgitation. No aortic valve stenosis is present. Tricuspid Valve: The tricuspid valve is normal in appearance and function. Pulmonic Valve: The pulmonic valve is normal in appearance and function. Aorta: The aorta is normal. Pericardium: No pericardial effusion. (No Signature Object) Patient: JONATHAN REYES Study Date: 06/04/2017 Page 2 of 2 12:48 PM [id number]
[2017-06-04] MEDS: GABAPENTIN 300 MG CAP PO SCH ×2 (16:43→20:33)
[2017-06-04 16:44] LABS: COLOR AMBER; LEUKOCYTE ESTERASE,URINE 2+ (NEGATIVE); NITRITE,URINE NEGATIVE (NEGATIVE)
[2017-06-04 16:52] LABS: BACTERIA 1+ /hpf (NONE SEEN); MUCUS 2+ /lpf (NONE-1+); RBC,URINE 50-182 /hpf (0-3); WBC,URINE 50-182 /hpf (0-3)
[2017-06-04] MEDS: FAMOTIDINE 20 MG TAB PO SCH (20:32)
[2017-06-04] MEDS: TAMSULOSIN HCL 0.4 MG CAP PO SCH (20:32)
[2017-06-04] MEDS: guaiFENesin 600 MG TAB.ER PO SCH (20:32)
[2017-06-04] MEDS ORDERED: NON-FORMULARY NEW DRUG (Ranitidine Hcl [Ranitidine Hcl] 150 MG) PO SCH (21:00)
--- NOTE | 2017-06-04 23:10 | GCON ---
[f rep st] CONSULTATION INFECTIOUS DISEASE CONSULTATION DATE OF CONSULTATION: 06/04/2017 REASON FOR CONSULTATION: Enterococcal bacteremia. HISTORY OF PRESENT ILLNESS: This is a 62-year-old male, who resides at [facility], who accidental ly pulled out his Hernandez catheter on 06/03/2017, in the afternoon, and was seen in the [facility] emergency room. In addition, they obtained a history that patient had some hallucinations on the trip to the emergency room, and apparently obtained blood cultures based on this history. Multiple a ttempts in the emergency room were made to replace the Hernandez, but they were unable. Subsequently, Jacobo nguyễn presented and placed Hernandez. Patient was eventually transferred back to [facility] and was c alled back today due to both sets of blood cultures positive for Enterococcus this morning at 7 a.m. Today, patient has minimal complaints, except some discomfort associated with Hernandez replacement. He reports a chronic cough and discomfort related to the neck brace. REVIEW OF SYSTEMS: A complete 10-point review of systems was performed and is negative, except as me ntioned in the HPI. PAST MEDICAL/SURGICAL HISTORY: 1. COPD, oxygen dependent. 2. Hospitalization May 19, 2017, in which he sustained a nonoperative cervical fracture, left fr ontal contusion, and left occipital subdural hematoma. 3. Remote history of substance abuse. 4. Cognitive communication deficits. 5. Spinal stenosis. 6. Hypertension. 7. TURP. 8. Tonsillectomy. 9. Laminectomy. 10. Chronic Hernandez. ALLERGIES: Penicillin, vecuronium, unclear reactions. The patient is unable to give a specific hist ory. MEDICATIONS: The patient was started on vancomycin 1 g IV q.12. He is also on Tylenol, DuoNeb, Cymb travis 60 mg daily, subcu heparin, Pepcid, folic acid, Neurontin 600 mg 3 times daily, guaifenesin 600 mg twice daily, Zestril 20 mg daily, morphine 50 mg q.6 p.r.n., multivitamin 1 tablet daily, Zofran a s needed, oxycodone IR as needed, Percocet as needed, Flomax 0.5 mg at night. SOCIAL HISTORY: A former smoker. Lives at [facility]. FAMILY HISTORY: Reviewed and noncontributory based on review of records. PHYSICAL EXAMINATION: VITAL SIGNS: Blood pressure 115/83, heart rate 81, respiratory rate 18, satur ation 97% on 2 L, temperature 36.7. He has been afebrile throughout both hospitalizations. GENERAL: This is a chronically ill-appearing male, wearing a cervical collar. HEENT: He is edentulous with moist mucous membranes. Mostly, he responds to questions appropriately. NECK: No obvious skin abn ormalities. Nontender. No lymphadenopathy. CARDIOVASCULAR: Regular rate, no murmurs. CHEST: Marcos ar to auscultate. Patient has coarse bronchial breath sounds bilaterally. ABDOMEN: Soft, nontender . : Patient had some dried blood in the scrotum and penile area. Patient has some erosion of the tip of his urethra with a Hernandez in place. NEUROLOGIC: The patient had significant limitations, had generalized weakness and required full support for moving around in the bed. SKIN: No rashes were noted, but general pallor. LABORATORY DATA: White count is 8.6, hematocrit 47, platelets 350, 81% neutrophils, 12% lymphocytes. Creatinine 0.7. Calcium 10.2. Urinalysis showed 2+ leukocyte esterase, 50-182 RBCs, 50-182 WBCs. Echocardiogram was performed in light of enterococcal bacteremia without obvious vegetation and a nor [facility] ejection fraction of 73%. ASSESSMENT AND PLAN: This is a chronically debilitated 62-year-old male, with chronic Hernandez, who acc identally removed his Hernandez yesterday, but also had some hallucinations and underlying concern for ur inalysis, and blood cultures were obtained and, subsequently, both sets of blood cultures were positi ve for enterococcus. Suspect urinary source and agree with initiation of intravenous vancomycin unti l susceptibilities of Enterococcus are available. 1. Continue vancomycin, may have to use vancomycin depending on ability to sort out patient's penici llin allergies with his cognitive deficits. 2. Would obtain repeat blood cultures after 48 hours of antibiotics. 3. Would obtain a urine culture to try to solidify that it is the source of this infection. 4. We will continue to follow on a day daily basis. I suspect patient will need a minimum duration of intravenous antibiotics of 2 weeks, and will eventually need a peripherally inserted central lelia ter line when his blood cultures are clear. 5. Thank you for this consultation. We will continue to follow on a daily basis. /[id number]/MODL
[2017-06-04] MEDS: VANCOMYCIN HCL/NORMAL SALINE 250 ML IV SCH (23:23)
[2017-06-04] MEDS ORDERED: VANCOMYCIN 1.25 GM in D5W 250 ML IV SCH (23:30)
[2017-06-05] MEDS: ACETAMINOPHEN 500 MG TAB PO SCH ×3 (04:27→20:48)
[2017-06-05] MEDS: LISINOPRIL 20 MG TAB PO SCH (09:38)
[2017-06-05] MEDS: DULoxetine 60 MG CAP PO SCH (09:38)
[2017-06-05] MEDS: guaiFENesin 600 MG TAB.ER PO SCH ×2 (09:38→20:47)
[2017-06-05] MEDS: GABAPENTIN 300 MG CAP PO SCH ×3 (09:38→20:47)
[2017-06-05] MEDS: MULTIVITAMINS 1 EACH TAB PO SCH (09:38)
[2017-06-05] MEDS: FAMOTIDINE 20 MG TAB PO SCH ×2 (09:38→20:47)
[2017-06-05] MEDS: ENOXAPARIN 40 MG/0.4 ML SYR SC SCH (09:38)
[2017-06-05] MEDS: FOLIC ACID 1 MG TAB PO SCH (09:38)
--- NOTE | 2017-06-05 10:48 | HOSPPROG ---
Hospitalist Progress Note Assessment/Plan: 62 y/p male with chronic temple presenting with #enterococcus bacteremia (suspected urinary source) -echo without vegetation -ID consult reviewed and appreciated -cont vanco for now. Will defer trial of Pcn to ID (pt does not report a h/o significant pcn allergy to me) #chronic resp failure and copd (controlled) #h/o substance abuse #H/o recent cervical fx -cont c-collar Subjective: improving abd spasm. no fevers or chills. feels better today than yesterday Objective: Vital Signs Temp Pulse Resp BP Pulse Ox 36.8 C 103 H 16 129/91 H 88 L 06/05/17 08:00 06/05/17 08:00 06/05/17 08:00 06/05/17 08:00 06/05/17 08:00 06/04/17 06/05/17 06/06/17 05:59 05:59 05:59 Intake Total 450 Output Total 650 Balance -200 - Physical Exam Constitutional: no apparent distress, appears nourished, not in pain, chronically ill appearing Cardiovascular: regular rate and rhythym, no murmur, rub, or gallop Respiratory: no respiratory distress, no rales or rhonchi, clear to auscultation Gastrointestinal: normoactive bowel sounds, soft, non-tender abdomen, no palpable masses Genitourinary: no bladder fullness, no bladder tenderness, no renal bruits, temple in urethra ICD10 Worksheet Patient Problems: Problems Problem Status Onset Fall Acute C1 cervical fracture Acute Hematoma Acute COPD (chronic obstructive pulmonary disease) Acute Palliative care encounter Acute Subdural hematoma Acute Urethral bleeding Acute Bacteremia Acute Chronic disease mgmt/Transitional care Acute Pneumonia Acute Hypoxia Acute
--- NOTE | 2017-06-05 10:54 | PCMIDPN ---
Assessment/Plan: # Enterococcal bacteremia, no signs of endocarditis with negative TTE, no peripheral stigmata, no murmur. Suspect urinary source --check blood cultures tomorrow --continue vancomycin until susceptibilities known --check Cr in light of vancomycin therapy, check trough this afternoon --PICC line after repeat blood cx negative 48hrs # Penicillin allergy: Not a true allergy, removed from allergy list medications vancomycin 1gm IV q12h, #1 Microbiology 06/04 urine culture: Pending 06/03 blood cultures (2 sets): Enterococcus Care coordinated with Dr. Giovani Olivier Subjective: patient still feels fatigued today denies pain Objective: Vital Signs Temp Pulse Resp BP Pulse Ox 36.8 C 103 H 16 129/91 H 88 L 06/05/17 08:00 06/05/17 08:00 06/05/17 08:00 06/05/17 08:00 06/05/17 08:00 06/04/17 06/05/17 06/06/17 05:59 05:59 05:59 Intake Total 450 Output Total 650 Balance -200 - Physical Exam General Appearance: alert, no apparent distress EENT: other (edentulous, MMM) Respiratory: normal breath sounds, No accessory muscle use Neck: other (Neck brace in place) Cardiac/Chest: regular rate, rhythm, No systolic murmur Extremities: other (Muscular wasting), No pedal edema Abdomen: non-tender, soft Male Genitalia: temple, No scrotal edema Skin: normal color, warm/dry, No diaphoresis, No rash Neuro/Psych: alert, normal mood/affect, oriented x 3 ICD10 Worksheet Patient Problems: Problems Problem Status Onset Bacteremia Acute C1 cervical fracture Acute COPD (chronic obstructive pulmonary disease) Acute Chronic disease mgmt/Transitional care Acute Fall Acute Hematoma Acute Hypoxia Acute Palliative care encounter Acute Pneumonia Acute Subdural hematoma Acute Urethral bleeding Acute
[2017-06-05 11:38] LABS: ANION GAP 14 mEq/L (8-16); CARBON DIOXIDE 23 mEq/l (22-31); CHLORIDE 104 mEq/L (97-110); CREATININE 0.6 mg/dL (0.7-1.3); GLOMERULAR FILTRATION RATE > 60; GLUCOSE 141 mg/dL (70-100); POTASSIUM 4.4 mEq/L (3.5-5.2); SODIUM 141 mEq/L (134-144)
[2017-06-05] MEDS: VANCOMYCIN HCL/NORMAL SALINE 250 ML IV SCH (11:48)
--- NOTE | 2017-06-05 15:34 | ASMTCMCOM ---
CM Note CM Note Notes: Pt resides at [facility], PT recommend therapies, CM left Jayla a voicemail. Anticipate pt will return to [facility] when medically stable. Jeimy LINDSAY Plan: Return to [facility] w/therapies Date Signed: 06/05/2017 03:33 PM Electronically Signed By:Harriet Smart RN
[2017-06-05] MEDS: TAMSULOSIN HCL 0.4 MG CAP PO SCH (20:47)
[2017-06-06] MEDS: VANCOMYCIN HCL/NORMAL SALINE 250 ML IV SCH ×2 (00:20→12:16)
[2017-06-06] MEDS: ACETAMINOPHEN 500 MG TAB PO SCH ×3 (04:32→21:06)
[2017-06-06] MEDS: DULoxetine 60 MG CAP PO SCH (10:18)
[2017-06-06] MEDS: LISINOPRIL 20 MG TAB PO SCH (10:18)
[2017-06-06] MEDS: ENOXAPARIN 40 MG/0.4 ML SYR SC SCH (10:18)
[2017-06-06] MEDS: FOLIC ACID 1 MG TAB PO SCH (10:18)
[2017-06-06] MEDS: MULTIVITAMINS 1 EACH TAB PO SCH (10:18)
[2017-06-06] MEDS: guaiFENesin 600 MG TAB.ER PO SCH ×2 (10:18→21:06)
[2017-06-06] MEDS: FAMOTIDINE 20 MG TAB PO SCH ×2 (10:18→21:06)
[2017-06-06] MEDS: GABAPENTIN 300 MG CAP PO SCH ×3 (10:18→21:06)
[2017-06-06] MEDS: oxyCODONE IR 5 MG TAB PO PRN ×2 (13:36→21:17)
--- NOTE | 2017-06-06 14:48 | PCMIDPN ---
Assessment/Plan: # Enterococcal bacteremia, no signs of endocarditis with negative TTE, no peripheral stigmata, no murmur. Still suspect urinary source although current Ucx show proteus. Daily improvement in mental status - seems back to baseline --DC vancomycin, Cr okay, Vanco T a bit low yesterday --start ampicillin 2gm IV q4h, CrCl 66 --PICC line after repeat blood cx negative 48hrs, tomorrow 06/07 # Penicillin allergy: Not a true allergy, removed from allergy list # 30-40K proteus in urine reflect bacteruria with chronic temple medications vancomycin 1gm IV q12h, #2 Microbiology 06/04 urine culture: Proteus 06/03 blood cultures (2 sets): Enterococcus, Amp EDWIN =1, Vanco EDWIN = [address] Giovani Olivier Subjective: requesting food wants neck brace off Objective: Vital Signs Temp Pulse Resp BP Pulse Ox 36.7 C 107 H 16 118/77 90 L 06/06/17 11:03 06/06/17 11:03 06/06/17 11:03 06/06/17 11:03 06/06/17 11:03 Microbiology 06/04/17 15:00 Urine Culture - Final Urine,Catheterized Proteus Mirabilis Laboratory Results 06/05/17 11:19 06/05/17 06/06/17 06/07/17 05:59 05:59 05:59 Intake Total 450 750 100 Output Total 650 550 650 Balance -200 200 -550 - Physical Exam General Appearance: alert, no apparent distress Respiratory: lungs clear, No accessory muscle use Neck: other (Neck brace in place) Cardiac/Chest: regular rate, rhythm Extremities: No pedal edema Male Genitalia: temple Skin: No rash Neuro/Psych: alert, normal mood/affect, oriented x 3 ICD10 Worksheet Patient Problems: Problems Problem Status Onset Bacteremia Acute C1 cervical fracture Acute COPD (chronic obstructive pulmonary disease) Acute Chronic disease mgmt/Transitional care Acute Fall Acute Hematoma Acute Hypoxia Acute Palliative care encounter Acute Pneumonia Acute Subdural hematoma Acute Urethral bleeding Acute
--- NOTE | 2017-06-06 14:49 | HOSPPROG ---
Hospitalist Progress Note Assessment/Plan: 62 y/p male with chronic temple presenting with #enterococcus bacteremia (suspected urinary source) -echo without vegetation -ID consult reviewed and appreciated -cont vanco for now. Await culture and sensitivity. Will defer trial of Pcn to ID (pt does not report a h/o significant pcn allergy to me) #chronic resp failure and copd (controlled) #h/o substance abuse #H/o recent cervical fx -cont c-collar Disposition: [facility] once culture and sensitivity data is returned. Will need outpatient follow-up regarding his cervical fracture. Subjective: Feeling better since starting antibiotics. His abdominal discomfort has improved. He denies any fevers or chills. He is tolerating a regular diet. Objective: Vital Signs Temp Pulse Resp BP Pulse Ox 36.7 C 107 H 16 118/77 90 L 06/06/17 11:03 06/06/17 11:03 06/06/17 11:03 06/06/17 11:03 06/06/17 11:03 Microbiology 06/04/17 15:00 Urine Culture - Final Urine,Catheterized Proteus Mirabilis Laboratory Results 06/05/17 11:19 06/05/17 06/06/17 06/07/17 05:59 05:59 05:59 Intake Total 450 750 100 Output Total 650 550 650 Balance -200 200 -550 - Physical Exam Constitutional: no apparent distress, appears nourished, not in pain, chronically ill appearing Ears, Nose, Mouth, Throat: other (Patient is in a hard cervical collar) Cardiovascular: regular rate and rhythym, no murmur, rub, or gallop Respiratory: no respiratory distress, no rales or rhonchi, clear to auscultation Gastrointestinal: normoactive bowel sounds, soft, non-tender abdomen, no palpable masses Genitourinary: temple in urethra Neurologic: AAOx3, sensation intact bilaterally ICD10 Worksheet Patient Problems: Problems Problem Status Onset Fall Acute C1 cervical fracture Acute Hematoma Acute COPD (chronic obstructive pulmonary disease) Acute Palliative care encounter Acute Subdural hematoma Acute Urethral bleeding Acute Bacteremia Acute Chronic disease mgmt/Transitional care Acute Pneumonia Acute Hypoxia Acute
[2017-06-06] MEDS: AMPICILLIN SODIUM 2 GM in NS 100 ML IV SCH ×2 (18:29→21:05)
[2017-06-06] MEDS: TAMSULOSIN HCL 0.4 MG CAP PO SCH (21:06)
[2017-06-06] MEDS: OXYCODONE/APAP 5/325 TAB PO PRN (21:16)
[2017-06-07] MEDS: AMPICILLIN SODIUM 2 GM in NS 100 ML IV SCH ×3 (03:10→10:57)
[2017-06-07] MEDS: OXYCODONE/APAP 5/325 TAB PO PRN ×2 (04:19→08:47)
[2017-06-07] MEDS: oxyCODONE IR 5 MG TAB PO PRN ×2 (04:20→12:11)
[2017-06-07] MEDS: ACETAMINOPHEN 500 MG TAB PO SCH ×2 (04:20→12:12)
[2017-06-07] MEDS ORDERED: ALTEPLASE 2 MG VIAL IVP PRN (08:24)
[2017-06-07] MEDS: GABAPENTIN 300 MG CAP PO SCH (08:39)
[2017-06-07] MEDS: DULoxetine 60 MG CAP PO SCH (08:39)
[2017-06-07] MEDS: guaiFENesin 600 MG TAB.ER PO SCH (08:39)
[2017-06-07] MEDS: ENOXAPARIN 40 MG/0.4 ML SYR SC SCH (08:39)
[2017-06-07] MEDS: FOLIC ACID 1 MG TAB PO SCH (08:39)
[2017-06-07] MEDS: LISINOPRIL 20 MG TAB PO SCH (08:39)
[2017-06-07] MEDS: MULTIVITAMINS 1 EACH TAB PO SCH (08:39)
[2017-06-07] MEDS: FAMOTIDINE 20 MG TAB PO SCH (08:39)
--- NOTE | 2017-06-07 10:34 | PCMIDPN ---
Assessment/Plan: # Enterococcal bacteremia, no signs of endocarditis with negative TTE, no peripheral stigmata, no murmur. Still suspect urinary source although current Ucx show proteus. Daily improvement in mental status - seems back to baseline --continue ampicillin 2gm IV q4h, CrCl 66, 06/22 stop date (extended a couple days past 2 weeks due to timing of follow up) --PICC line placed today # Penicillin allergy: Not a true allergy, removed from allergy list # 30-40K proteus in urine reflect bacteruria with chronic temple medications, antibiotics # 3 Ampicillin 2 g IV Q 4 # 1 Microbiology 06/04 urine culture: Proteus 06/03 blood cultures (2 sets): Enterococcus, Amp EDWIN =1, Vanco EDWIN = 1 Subjective: Patient is without specific complaints today. Objective: Vital Signs Temp Pulse Resp BP Pulse Ox 36.7 C 65 18 126/85 H 90 L 06/07/17 07:52 06/07/17 07:52 06/07/17 07:52 06/07/17 07:52 06/07/17 07:52 Microbiology 06/04/17 15:00 Urine Culture - Final Urine,Catheterized Proteus Mirabilis Laboratory Results 06/05/17 11:19 06/06/17 06/07/17 06/08/17 05:59 05:59 05:59 Intake Total 750 600 Output Total 550 1100 500 Balance 200 -500 -500 - Physical Exam General Appearance: alert, no apparent distress Respiratory: lungs clear, No accessory muscle use Cardiac/Chest: regular rate, rhythm, No systolic murmur Extremities: No pedal edema Abdomen: non-tender, soft Skin: No rash Neuro/Psych: alert, normal mood/affect, oriented x 3 - Line/s RUE PICC Lines: No drainage, No erythema ICD10 Worksheet Patient Problems: Problems Problem Status Onset Bacteremia Acute C1 cervical fracture Acute COPD (chronic obstructive pulmonary disease) Acute Chronic disease mgmt/Transitional care Acute Fall Acute Hematoma Acute Hypoxia Acute Palliative care encounter Acute Pneumonia Acute Subdural hematoma Acute Urethral bleeding Acute
--- NOTE | 2017-06-07 10:36 | PDIAF ---
- Diagnosis Diagnosis: Enterococcal bacteremia Code Status: Full Code - Medication Management Discharge Medications: Medications to Continue on Transfer DULoxetine [Cymbalta 60 MG (*)] 60 mg PO DAILY 04/03/17 [Last Taken 06/04/17] Folic Acid [Folic Acid 1 MG (*)] 1 mg PO DAILY 04/03/17 [Last Taken 06/04/17] Multivitamins [Multivitamin (*)] 1 each PO DAILY 04/03/17 [Last Taken 06/04/17] Ranitidine HCl 150 mg PO BID 04/03/17 [Last Taken 06/04/17] Gabapentin [Neurontin 300 MG (*)] 600 mg PO TID 05/13/17 [Last Taken 06/04/17] Ipratropium/Albuterol [Duoneb (*)] 3 ml IH Q6HRS PRN 05/13/17 [Last Taken Unknown] Lisinopril [Zestril 20 mg (*)] 20 mg PO DAILY 05/13/17 [Last Taken 06/04/17] guaiFENesin [Mucinex 600 MG (*)] 600 mg PO BID 05/19/17 [Last Taken 06/04/17] Acetaminophen [Tylenol ES 500 mg (*)] 1,000 mg PO Q8H tab 05/20/17 [Last Taken Unknown] Tamsulosin HCl [Flomax 0.4 MG (*)] 0.4 mg PO HS 06/04/17 [Last Taken 06/03/17] Ampicillin Sodium [Ampicillin 2 GM VIAL] 2 gm IV Q4HRS vial 06/07/17 [Last Taken Unknown] oxyCODONE IR [Oxycodone Ir (*)] 5 mg PO Q4 PRN tab 06/07/17 [Last Taken Unknown ] oxyCODONE/APAP 5/325 [Percocet 5/325 (*)] 1 tab PO Q4 PRN tab 06/07/17 [Last Taken Unknown] Wheel And Caster Repairer Antibiotics: ampicillin 2gm IV [id number] Wheel And Caster Repairer Antibiotic Stop Date: 06/22/17 Discharge Medications: Refer to the Discharge Home Medication list for PRN reason. PICC Care - Routine: Yes - Labs/Radiology CBC w/diff Date: 06/14/17 (Weekly Wednesday) CMP Date: 06/14/17 (Weekly Wednesday) Call or Fax Lab and Imaging Results to: Anamika Costa MD [facility] at fax [phone] - Follow Up Care Current Providers and Referrals: DAKOTA GARCIA [Other] - As per Instructions Anamika Costa MD [Medical Doctor] - 06/22/17 10:30 am
--- NOTE | 2017-06-07 10:47 | ASMTCMCOM ---
CM Note CM Note Notes: CM spoke w/ Pawel Lambert, RETAIL SALESMAN regarding d/c POC. Pt will have a PICC line placed. Anticipates that pt will d/c back to [facility] tomorrow. CM sent [facility] updates. CM to follow. Date Signed: 06/07/2017 10:47 AM Electronically Signed By:HIPOLITO Zamarripa
--- NOTE | 2017-06-07 11:09 | PDIAF ---
- Diagnosis Diagnosis: Enterococcal bacteremia Code Status: Full Code - Medication Management Discharge Medications: Medications to Continue on Transfer DULoxetine [Cymbalta 60 MG (*)] 60 mg PO DAILY 04/03/17 [Last Taken 06/04/17] Folic Acid [Folic Acid 1 MG (*)] 1 mg PO DAILY 04/03/17 [Last Taken 06/04/17] Multivitamins [Multivitamin (*)] 1 each PO DAILY 04/03/17 [Last Taken 06/04/17] Ranitidine HCl 150 mg PO BID 04/03/17 [Last Taken 06/04/17] Gabapentin [Neurontin 300 MG (*)] 600 mg PO TID 05/13/17 [Last Taken 06/04/17] Ipratropium/Albuterol [Duoneb (*)] 3 ml IH Q6HRS PRN 05/13/17 [Last Taken Unknown] Lisinopril [Zestril 20 mg (*)] 20 mg PO DAILY 05/13/17 [Last Taken 06/04/17] guaiFENesin [Mucinex 600 MG (*)] 600 mg PO BID 05/19/17 [Last Taken 06/04/17] Acetaminophen [Tylenol ES 500 mg (*)] 1,000 mg PO Q8H tab 05/20/17 [Last Taken Unknown] Tamsulosin HCl [Flomax 0.4 MG (*)] 0.4 mg PO HS 06/04/17 [Last Taken 06/03/17] Ampicillin Sodium [Ampicillin 2 GM VIAL] 2 gm IV Q4HRS vial 06/07/17 [Last Taken Unknown] oxyCODONE IR [Oxycodone Ir (*)] 5 mg PO Q4 PRN tab 06/07/17 [Last Taken Unknown ] oxyCODONE/APAP 5/325 [Percocet 5/325 (*)] 1 tab PO Q4 PRN tab 06/07/17 [Last Taken Unknown] Science Professor Antibiotics: ampicillin 2gm IV [id number] Science Professor Antibiotic Stop Date: 06/22/17 Discharge Medications: Refer to the Discharge Home Medication list for PRN reason. PICC Care - Routine: Yes - Orders Services needed: Registered Nurse, Physical Therapy, Occupational Therapy Diet Recommendation: no restrictions on diet - Labs/Radiology CBC w/diff Date: 06/14/17 (Weekly Wednesday) CMP Date: 06/14/17 (Weekly Wednesday) Call or Fax Lab and Imaging Results to: Anamika Costa MD [facility] at fax [phone] - Follow Up Care Current Providers and Referrals: DAKOTA GARCIA [Other] - As per Instructions Anamika Costa MD [Medical Doctor] - 06/22/17 11:00 am
--- NOTE | 2017-06-07 11:54 | ASMTCMCOM ---
CM Note CM Note Notes: Pt is being discharged back to [facility] today. CM spoke w/ Jayla at [facility] and she will set up transportation for 1pm. CM provided YARY Dowell w/ phone number to give report. CM faxed d/c orders to [facility]. CM available for changes. Date Signed: 06/07/2017 11:54 AM Electronically Signed By:HIPOLITO Zamarripa
[2017-06-07 11:57] VITALS: BP 120/86; PULSE 67; RESP 16; TEMP 97.4; O2SAT 96
--- NOTE | 2017-06-07 12:07 | PDIAF ---
- Diagnosis Diagnosis: Enterococcal bacteremia Code Status: Full Code - Medication Management Discharge Medications: Medications to Continue on Transfer DULoxetine [Cymbalta 60 MG (*)] 60 mg PO DAILY 04/03/17 [Last Taken 06/04/17] Folic Acid [Folic Acid 1 MG (*)] 1 mg PO DAILY 04/03/17 [Last Taken 06/04/17] Multivitamins [Multivitamin (*)] 1 each PO DAILY 04/03/17 [Last Taken 06/04/17] Ranitidine HCl 150 mg PO BID 04/03/17 [Last Taken 06/04/17] Gabapentin [Neurontin 300 MG (*)] 600 mg PO TID 05/13/17 [Last Taken 06/04/17] Ipratropium/Albuterol [Duoneb (*)] 3 ml IH Q6HRS PRN 05/13/17 [Last Taken Unknown] Lisinopril [Zestril 20 mg (*)] 20 mg PO DAILY 05/13/17 [Last Taken 06/04/17] guaiFENesin [Mucinex 600 MG (*)] 600 mg PO BID 05/19/17 [Last Taken 06/04/17] Acetaminophen [Tylenol ES 500 mg (*)] 1,000 mg PO Q8H tab 05/20/17 [Last Taken Unknown] Tamsulosin HCl [Flomax 0.4 MG (*)] 0.4 mg PO HS 06/04/17 [Last Taken 06/03/17] Ampicillin Sodium [Ampicillin 2 GM VIAL] 2 gm IV Q4HRS vial 06/07/17 [Last Taken Unknown] oxyCODONE IR [Oxycodone Ir (*)] 5 mg PO Q4 PRN tab 06/07/17 [Last Taken Unknown ] oxyCODONE/APAP 5/325 [Percocet 5/325 (*)] 1 tab PO Q4 PRN tab 06/07/17 [Last Taken Unknown] Cross Tie Cutter Antibiotics: ampicillin 2gm IV [id number] Cross Tie Cutter Antibiotic Stop Date: 06/22/17 Discharge Medications: Refer to the Discharge Home Medication list for PRN reason. PICC Care - Routine: Yes - Orders Services needed: Registered Nurse, Physical Therapy, Occupational Therapy Diet Recommendation: no restrictions on diet - Labs/Radiology CBC w/diff Date: 06/14/17 (Weekly Wednesday) CMP Date: 06/14/17 (Weekly Wednesday) Call or Fax Lab and Imaging Results to: Anamika Costa MD [facility] at fax [phone] - Follow Up Care Current Providers and Referrals: DAKOTA GARCIA [Other] - As per Instructions Anamika Costa MD [Medical Doctor] - 06/22/17 10:30 am
--- NOTE | 2017-06-08 09:41 | ASDISCHSUM ---
Discharge Information Plan Status:SNF Medically Cleared to Leave:06/06/2017 Discharge Date:06/07/2017 02:30 PM CM D/C Disposition: ADT D/C Disposition:Group Home Facility Projected Discharge Date:06/07/2017 11:00 AM Transportation at D/C: Discharge Delay Reason: Follow-Up Date:06/07/2017 11:00 AM Discharge Slot: Final Diagnosis: Placement Information Referral Type:*Correction/SNF Referral ID:[id number] Provider Name:OBDULIA Cantu Address 1:[address] Phone Number: Address 2: Fax Number: [facility]:[place] Selection Factors: State:[place] Patient Contact Information Contact Name:KATHERYN Relationship:Friend Address: Work Phone: City: [facility] Phone: [facility] Code: Email: Financial Information Financial Class: Primary Plan Desc:MEDICARE INPATIENT Primary Plan Number:[id number] Secondary Plan Desc:MEDICAID [place] Secondary Plan Number:[id number] Assessment Information LACE LACE Length of stay for Answers: Less than 1 day current admission Acuity / Level of Care Answers: Was the patient admitted to hospital via the emergency department? Yes: Comorbidities - select Answers: Cerebrovascular disease all that apply Chronic pulmonary disease Moderate or severe liver disease or renal disease Emergency dept visits in Answers: 4+ last 6 months Score: 14 Date Signed: 06/04/2017 11:44 AM Electronically Signed By:Ayde Fairbanks RN [facility] RON Progress Note CM Violet CM Note Notes: I was asked by the ED collar baster to call [facility] to inform them that patient's blood cultures (drawn yesterday in the ED) were positive and that he needed to return to [facility] for treatment. Keisha @ arranged for patient to be transported back to [facility]. Patient has had multiple admissions in past 3 months. His most recent visit yesterday was d/t him accidentally removing his chronic indwelling Hernandez. He was also c/o AMS, possible r/t a UTI. Anticipate patient will d/c back to [facility] when medically stable. Date Signed: 06/04/2017 11:47 AM Electronically Signed By:Ayde Fairbanks RN [facility] CM Progress Note CM Note CM Note Notes: Pt resides at [facility], PT recommend therapies, CM left Jayla a voicemail. Anticipate pt will return to when medically stable. Jeimy LINDSAY Plan: Return to w/therapies Date Signed: 06/05/2017 03:33 PM Electronically Signed By:Harriet Smart RN [facility] CM Progress Note CM Note CM Note Notes: CM spoke w/ Pawel Lambert NP regarding d/c POC. Pt will have a PICC line placed. Anticipates that pt will d/c back to [facility] tomorrow. CM sent [facility] updates. CM to follow. Date Signed: 06/07/2017 10:47 AM Electronically Signed By:HIPOLITO Zamarripa [facility] Progress Note CM Note CM Note Notes: Pt is being discharged back to [facility] today. CM spoke w/ Jayla at [facility] and she will set up transportation for 1pm. RON provided YARY Dowell w/ phone number to give report. CM faxed d/c orders to [facility]. RON available for changes. Date Signed: 06/07/2017 11:54 AM Electronically Signed By:HIPOLITO Zamarripa Intervention Information Intervention Type:*IM-Signed Date of Service:06/07/2017 01:44 PM Patient Type:Inpatient Staff Member:Yessy Mendez Hours: Discipline: Severity: Comment:
--- NOTE | 2017-06-08 13:21 | GDS ---
[f rep st] DISCHARGE SUMMARY DISCHARGE DIAGNOSES: 1. Enterococcal bacteremia. 2. Penicillin allergy. 3. Acute respiratory failure with chronic obstructive pulmonary disease. 4. History of substance abuse. 5. History of recent cervical fracture. CONSULTATIONS: Infectious Disease. STUDIES AND PROCEDURES DONE: Echocardiogram, PICC line placement. PHYSICAL EXAM: GENERAL: The patient is alert. VITAL SIGNS: Afebrile at 36.3, pulse is 67, respirator y rate 16, blood pressure is 120/86, saturating 96% on 1 L. I have seen and evaluated the patient on the day of discharge and reviewed his care with Dr. Anamika wakefield. HOSPITAL COURSE: 1. The patient is a 62-year-old male who presents with not feeling well. He was evaluated and diagno sed with enterococcal bacteremia. It is felt this is likely secondary to a urine source. He has been treated with antibiotic therapy during this hospitalization. A PICC line has been placed. He will con tinue ampicillin 2 mg IV in the outpatient setting. 2. Chronic respiratory failure. He is on 1 L of oxygen, this is stable. 3. History of cervical fracture. He will continue his C-collar with outpatient followup. DISPOSITION: The patient will be discharged to return to [facility] where he resides for [facility] living. There are no pending studies. DISCHARGE MEDICATIONS: Please refer to EMR form. The patient has been continued on IV ampicillin at the time of disposition. He has also had a few other changes in his medication management. His morphi ne IR has been discontinued during this hospitalization as he has not required it for pain. I have no t changed the patient's other medicines to the best of my knowledge. Followup will be with Dr. Anamika gonzalez as well as the patient's primary care physician and neurosurgery. There are no pending studies. I spent greater than 35 minutes in the care, coordination, and management of patient's disposition. /[id number]/MODL
== END 2017-06-07 14:30 | DRG 690 ==
LOC: F3E 12:36
PROVIDERS: ADMIT Family Medicine; ATTEND Family Medicine
PROC: 02HV33Z Insertion of Infusion Device into Superior Vena Cava, Percutaneous Approach (ICD-10-PCS; principal; 2017-06-07)
DX: N39.0 Urinary tract infection, site not specified (principal); R78.81 Bacteremia; B95.2 Enterococcus as the cause of diseases classified elsewhere; J44.9 Chronic obstructive pulmonary disease, unspecified; J96.10 Chronic respiratory failure, unspecified whether with hypoxia or hypercapnia; I10 Essential (primary) hypertension; Z99.81 Dependence on supplemental oxygen; Z88.0 Allergy status to penicillin
CPT/HCPCS: 82947-QW; 97112-GO; 97116-GP; 97161-GP; 97165-GO; 97530-GO; 97535-GO; C1751; C1769; G8978-GP-CK; G8979-GP-CJ; G8987-GO-CM; G8988-GO-CK; J0290; J0692; J1650; J3370; Q9967

== ENCOUNTER 2017-07-10 04:03 | Inpatient (IN) | payer OTHER, MEDICAID ==
[2017-07-10] MEDS ORDERED: IPRATROPIUM/ALBUTEROL 3 ML DEYVIAL IH ONE (04:12)
[2017-07-10 04:26] LABS: % IMMATURE GRANULYOCYTES 0.1 % (0.0-1.1); ABSOLUTE IMMATURE GRANULOCYTES 0.01 10^3/uL (0.00-0.10); ADD DIFF? NO; ADD MORPH? NO; ADD SCAN? NO; ATYPICAL LYMPHOCYTE FLAG 0 (0-99); FRAGMENT RBC FLAG 0 (0-99); HEMATOCRIT 42.5 % (40.0-51.0); HEMOGLOBIN 13.5 g/dL (13.7-17.5); LEFT SHIFT FLG 0 (0-99); LIPEMIA HEMOLYSIS FLAG 80 (0-99); MEAN CELL HEMOGLOBIN 25.7 pg (27.9-34.1); MEAN CELL HEMOGLOBIN CONCENTR. 31.8 g/dL (32.4-36.7); MEAN PLATELET VOLUME 8.4 fL (8.7-11.7); PLATELET CLUMPS FLAG 10 (0-99); PLATELET COUNT 249 10^3/uL (150-400); RED BLOOD CELL COUNT 5.25 10^6/uL (4.40-6.38); RED CELL DISTRIBUTION WIDTH 16.9 % (11.5-15.2)
[2017-07-10 04:38] LABS: ANION GAP 13 mEq/L (8-16); CALCIUM 9.9 mg/dL (8.5-10.4); CARBON DIOXIDE 31 mEq/l (22-31); CHLORIDE 101 mEq/L (97-110); CREATININE 0.7 mg/dL (0.7-1.3); GLOMERULAR FILTRATION RATE > 60; GLUCOSE 91 mg/dL (70-100); POTASSIUM 4.7 mEq/L (3.5-5.2); SODIUM 145 mEq/L (134-144)
[2017-07-10] MEDS ORDERED: methylPREDNISolone SOD SUCC 125 MG/2 ML VIAL IVP ONE (04:42)
--- NOTE | 2017-07-10 04:42 | EDPHY ---
H & P Source: Patient, EMS Exam Limitations: No limitations - Medical/Surgical History Hx Asthma: No Hx Chronic Respiratory Disease: Yes Hx Diabetes: No Hx Cardiac Disease: No Hx Renal Disease: No Hx Cirrhosis: No Hx Alcoholism: No Hx HIV/AIDS: No Hx Splenectomy or Spleen Trauma: No Other PMH: COPD. HTN. Spinal stenosis. Hepatitis. Cognitive communication deficit. Swelling to left upper arm.Fell....fx cervical, L frontal contusion,L subdural hematoma - Social History Smoking Status: Former smoker Time Seen by Provider: 07/10/17 04:05 HPI/ROS: HPI The patient presents with shortness of breath which has been for the last 2-3 days and is associated with cough productive of greenish sputum. He also has increasing oxygen requirement, needing now 4 L via nasal cannula wears before he would require 2 L for his chronic respiratory failure due to COPD. He has not had a fever, nausea or vomiting. He does not have any chest pains. He has not tried any breathing treatments at his long term. He is brought in by ambulance, initial saturations were in the low 80s on 2 L which improved with additional oxygen.. REVIEW OF SYSTEMS Constitutional: No fever, no chills. Eyes: No discharge. ENT: No sore throat. Cardiovascular: No chest pain, no palpitations. Respiratory: No cough, no shortness of breath. Gastrointestinal: No abdominal pain, no vomiting. Genitourinary: No hematuria. Musculoskeletal: No back pain. Skin: No rashes. Neurological: No headache. PMHx: COPD Soc Hx: Resides at [facility] PHYSICAL General Appearance: Alert, no distress Eyes: Pupils equal and round no pallor or injection ENT, Mouth: Mucous membranes moist Respiratory: Retractions are present, there is decreased breath sounds throughout all lung robert Cardiovascular: Regular rate and rhythm Gastrointestinal: Abdomen is soft and non-tender, no masses, bowel sounds normal Neurological: A&O, moves all extremities Skin: Warm and dry, no rashes Musculoskeletal: Neck is supple non tender Extremities: symmetrical, full range of motion Psychiatric: Patient is oriented X 3, there is no agitation (Riguzzi,Radha) Constitutional: Initial Vital Signs Temperature (C) 37.5 C 07/10/17 04:46 Heart Rate 65 07/10/17 04:46 Respiratory Rate 18 07/10/17 04:46 Blood Pressure 108/75 07/10/17 04:46 O2 Sat (%) 94 07/10/17 04:46 O2 Delivery Mode Oxymizer O2 (L/minute) 5 Allergies/Adverse Reactions: vecuronium Allergy (Verified 07/10/17 04:41) Home Medications: Medication Instructions Recorded DULoxetine [Cymbalta 60 MG (*)] 60 mg PO DAILY 04/03/17 Folic Acid [Folic Acid 1 MG (*)] 1 mg PO DAILY 04/03/17 Multivitamins [Multivitamin (*)] 1 each PO DAILY 04/03/17 Ranitidine HCl 150 mg PO BID 04/03/17 Gabapentin [Neurontin 300 MG (*)] 600 mg PO TID 05/13/17 Ipratropium/Albuterol [Duoneb (*)] 3 ml IH Q6HRS PRN 05/13/17 Lisinopril [Zestril 20 mg (*)] 20 mg PO DAILY 05/13/17 guaiFENesin [Mucinex 600 MG (*)] 600 mg PO BID 05/19/17 Tamsulosin HCl [Flomax 0.4 MG (*)] 0.4 mg PO HS 06/04/17 Acetaminophen [Tylenol ES 500 mg 1,000 mg PO Q8H PRN 07/10/17 (*)] Bisacodyl [Bisacodyl (*)] 5 mg PO DAILY PRN 07/10/17 Oxybutynin Chloride Xl [Ditropan 2.5 mg PO Q8 PRN 07/10/17 Xl 5mg (*)] Polyethylene Glycol 3350 [Miralax 17 gm PO DAILY 07/10/17 17 gm (*)] oxyCODONE HCL/ACETAMINOPHEN 1 each PO Q4 PRN 07/10/17 [Percocet 10-325 mg Tablet] Medical Decision Making - Diagnostics Imaging Results: Chest x-ray two view shows increased fluid in the right lung fissure, no obvious infiltrate, interpreted by me, radiology interpretation is pending. ( Radha Abraham) CT scan of chest with IV contrast: No evidence of pulmonary embolism. Inferior endplate erosion noted at T12 indicative of diskitis. Results were discussed with staff radiologist Dr. Pantera Villalobos. (Ambrosio Priest) ED Course/Re-evaluation: I took over care of this patient at 7:00 a.m.. This patient is here for a COPD exacerbation. There was some concern about possible PE. A D-dimer was sent after the patient's admission order was put in. He is to go up stairs pending a negative D-dimer verses CT angiogram if D-dimer positive. 9:20 a.m., patient re-evaluated. Resting comfortably at this time. Results of CT scan discussed. He has no midline thoracic or lumbar tenderness on palpation and denies any back pain. 9:30 a.m., spoke with on-call hospitalist. Discussed results of CT. Will consult with Infectious Disease regarding treatment of possible diskitis. Patient admitted to the floor in stable condition. 9:40 a.m., spoke with infectious disease specialist Dr. Jone Elizalde. He recommended we get blood cultures. This has been done. He did not recommend additional antibiotic treatment for possible diskitis. He felt that without symptoms of back pain or pain on palpation of the thoracic spine and area involved the diskitis was very unlikely. He will consult with the hospitalist service as needed on further management. 9:45 a.m., spoke with hospitalist, Petra Armas, discussed my conversation with Dr. Elizalde. They will follow up with Dr. Elizaled regarding further management on this patient. (Ambrosio Priest) Differential Diagnosis: A 62-year-old man with COPD on chronic oxygen from [facility] presents with shortness of breath and cough for the last 3 days with increasing oxygen requirement up to 4 L from his usual 2. On exam, he is slightly tachypneic and retracting occasionally, lung sounds are diminished throughout. Differential diagnosis includes COPD exacerbation, pneumonia, influenza, viral URI. In the emergency department, patient was put on 4 L nasal cannula to keep his oxygenation above 90. He was given a DuoNeb with some improvement in his saturations and additionally received albuterol. However eventually saturations returned to the low 90s on 4 L. He was given a dose of Solu-Medrol and azithromycin for presumed COPD exacerbation. Chest x-ray was unremarkable. D-dimer initially was not checked, however was added onto his lab testing given his continued hypoxia and no infiltrate on chest x-ray. This was pending at time of sign-out to Dr. Priest. If D-dimer is elevated, then CT scan of chest should be performed in the emergency department. If this is negative, the patient can be admitted upstairs to his medical-surgical bed. I have discussed the case with the hospitalist Dr. Keita and she is in agreement with this plan. (Radha Abraham) - Data Points Laboratory Results: Laboratory Results 07/10/17 04:00 07/10/17 04:00 07/10/17 07/10/17 07/10/17 04:30 04:00 04:00 WBC 6.72 10^3/uL 10^3/uL (3.80-9.50) RBC 5.25 10^6/uL 10^6/uL (4.40-6.38) Hgb 13.5 g/dL L g/dL (13.7-17.5) Hct 42.5 % % (40.0-51.0) MCV 81.0 fL L fL (81.5-99.8) MCH 25.7 pg L pg (27.9-34.1) MCHC 31.8 g/dL L g/dL (32.4-36.7) RDW 16.9 % H % (11.5-15.2) Plt Count 249 10^3/uL 10^3/uL (150-400) MPV 8.4 fL L fL (8.7-11.7) Neut % (Auto) 64.4 % % (39.3-74.2) Lymph % (Auto) 24.6 % % (15.0-45.0) [place] % (Auto) 7.3 % % (4.5-13.0) Eos % (Auto) 3.0 % % (0.6-7.6) Baso % (Auto) 0.6 % % (0.3-1.7) Nucleat RBC Rel Count 0.0 % % (0.0-0.2) Absolute Neuts (auto) 4.33 10^3/uL 10^3/uL (1.70-6.50) Absolute Lymphs (auto) 1.65 10^3/uL 10^3/uL (1.00-3.00) Absolute Monos (auto) 0.49 10^3/uL 10^3/uL (0.30-0.80) Absolute Eos (auto) 0.20 10^3/uL 10^3/uL (0.03-0.40) Absolute Basos (auto) 0.04 10^3/uL 10^3/uL (0.02-0.10) Absolute Nucleated RBC 0.00 10^3/uL 10^3/uL (0-0.01) Immature Gran % 0.1 % % (0.0-1.1) Immature Gran # 0.01 10^3/uL 10^3/uL (0.00-0.10) D-Dimer 1.82 ug/mLFEU H ug/mLFEU (0.00-0.50) Sodium 145 mEq/L H mEq/L (134-144) Potassium 4.7 mEq/L mEq/L (3.5-5.2) Chloride 101 mEq/L mEq/L (97-110) Carbon Dioxide 31 mEq/l mEq/l (22-31) Anion Gap 13 mEq/L mEq/L (8-16) BUN 25 mg/dL H mg/dL (7-23) Creatinine 0.7 mg/dL mg/dL (0.7-1.3) Estimated GFR > 60 Glucose 91 mg/dL mg/dL (70-100) Calcium 9.9 mg/dL mg/dL (8.5-10.4) NT-Pro-B Natriuret Pep 77 pg/mL pg/mL (0-125) Medications Given: Discontinued Medications Albuterol (Proventil Neb) 3 ml IH EDNOW ONE Stop: 07/10/17 06:06 Last Admin: 07/10/17 06:09 Dose: 3 ml Albuterol/Ipratropium (Duoneb) 3 ml IH EDNOW ONE Stop: 07/10/17 04:13 Last Admin: 07/10/17 04:50 Dose: 3 ml Azithromycin (Zithromax) 500 mg PO EDNOW ONE PRN Reason: Protocol Stop: 07/10/17 06:06 Last Admin: 07/10/17 06:08 Dose: 500 mg Methylprednisolone Sodium Succinate (Solu-Medrol) 125 mg IVP EDNOW ONE Stop: 07/10/17 04:43 Last Admin: 07/10/17 04:50 Dose: 125 mg Departure - Departure Disposition: [facility] Acute Clinical Impression: Chronic obstructive pulmonary disease with acute exacerbation, Hypoxia Condition: Fair
[2017-07-10] MEDS ORDERED: AZITHROMYCIN 250 MG TAB PO ONE (06:05)
[2017-07-10] MEDS ORDERED: ALBUTEROL 3 ML DEYVIAL IH ONE (06:05)
[2017-07-10] MEDS ORDERED: ALBUTEROL 3 ML DEYVIAL IH PRN (07:17)
[2017-07-10] MEDS ORDERED: ONDANSETRON 4 MG/2 ML VIAL IVP PRN (07:17)
[2017-07-10] MEDS ORDERED: ACETAMINOPHEN 325 MG TAB PO PRN (07:17)
[2017-07-10] MEDS ORDERED: IOPAMIDOL (ISOVUE 370) 100 ML BTL IV ONE (07:40)
[2017-07-10] MEDS ORDERED: IPRATROPIUM/ALBUTEROL 3 ML DEYVIAL ONE (07:41)
--- NOTE | 2017-07-10 09:00 | GHP ---
[f rep st] HISTORY AND PHYSICAL DATE OF ADMISSION: 07/10/2017 SOURCE: Patient able to provide majority of the history, appears fairly reliable. EMR was reviewed including last hospital stay from 06/04/2017. Accompanying paperwork from [facility] also reviewed. CHIEF COMPLAINT: Shortness of breath and cough. HISTORY OF PRESENT ILLNESS: This is a very pleasant 62-year-old gentleman with past medical history significant for chronic obstructive pulmonary disease with chronic hypoxic respiratory failure, chronic bladder outlet obstruction with a chronic indwelling Hernandez, history of cerebrovascular accident with persistent left upper extremity weakness, chronic pain, spinal stenosis and generalized debility who presents to the Emergency Department from [facility] with persistent shortness of breath and worsening hypoxia. The patient reports that for the last 2 to 3 days he has been having increased dyspnea with a productive cough of sputum that he reports is yellow and clear. Patient reports also some additional diarrhea. No fevers, chills, sweats, some nausea, but no vomiting. Patient states that there are multiple residents at [facility] with similar symptoms. He states that he is up to date on his annual flu shot and he believes he is up to date on his pneumonia vaccine. When the EMS arrived, patient's O2 saturation was in the low 90s on 2 L/minute oxygen at the residential. The patient's baseline oxygen need is 1 to 2 L. Apparently, no escalation of respiratory treatment was given including nebulizer treatment, but patient's oxygenation did improve with increase to 4 L/minute. REVIEW OF SYSTEMS: GENERAL: No fevers, chills or sweats. SKIN: Patient denies any rashes or sores. ENT: Patient reports rhinorrhea. No sore throat. EYES: Patient reports a progressive decline in vision, but nothing acute. No ocular pain. CARDIOVASCULAR: Patient reports some pleuritic chest pain, central, left-sided, worse with inspiration and coughing. No pressure, no palpitations. RESPIRATORY: Patient reports shortness of breath, productive cough as noted above in HPI. GASTROINTESTINAL: Patient with nausea. No vomiting. Positive diarrhea that is nonbloody. : Patient reports history of chronic urinary retention with benign prostatic hypertrophy and chronic Hernandez placement. MUSCULOSKELETAL: Patient reports chronic neck pain with history of C1 fracture and falls. No myalgias or other joint pain. NEUROLOGIC: Patient reports intermittent migraines, worsened with his current exacerbation and dyspnea. He also reports chronic right thigh, left greater than right handed numbness tingling and weakness related to CVA last year. PSYCHIATRIC: Patient reports history of depression. No anxiety. Denies any suicidal ideation or homicidal ideation. Remainder ROS negative except as noted above. ALLERGIES: Vecuronium. Previously patient had a penicillin allergy, but this was evaluated with Infectious disease on last hospitalization and found to be that it was ineffective against a dental infection and not that patient had a true allergy. HOME MEDICATIONS: As per [facility] records, Cymbalta 60 mg p.o. daily, folic acid 1 mg p.o. daily, lisinopril 20 mg p.o. daily, MiraLAX 17 g p.o. daily , multivitamin 1 tab p.o. daily, tamsulosin 0.4 mg at h.s., Mucinex 600 mg p.o. twice daily, ranitidine 150 mg p.o. twice daily, gabapentin 600 mg p.o. three times daily, Tylenol 1000 mg p.o. q.8 hours p.r.n. for pain, Dulcolax 5 mg p.o. constipation p.r.n., Ditropan 2.5 mg p.o. q.8 hours p.r.n. for bladder spasms, DuoNeb q.6 hours p.r.n., Percocet 10/325, 1 tab p.o. q.4 hours p.r.n. for pain. PAST MEDICAL HISTORY: Significant for history of cerebrovascular accident in 2016 with sequelae of numbness and tingling in the left arm and weakness, history of falls, migraine headaches, spinal stenosis, history of C1 fracture from fall earlier this year, chronic obstructive pulmonary disease with chronic respiratory failure with hypoxia and history of exacerbations, chronic pain on chronic opiate therapy, history of subdural hematoma, bacteremia, Enterococcus, suspected due to urinary source with admission on 06/04/2017, chronic hepatitis , cognitive communication deficit, benign prostatic hypertrophy, hypertension, chronic indwelling Hernandez.. PAST SURGICAL HISTORY: Significant for TURP, tonsillectomy, adenoidectomy, and laminectomy. FAMILY HISTORY: Mother with chronic obstructive pulmonary disease. No family history of DVTs or coronary artery disease. SOCIAL HISTORY: Patient is a resident of [facility]. He does not smoke or drink. He reports a history of marijuana use recreationally, quit smoking 25 years ago. He does wear oxygen 1 to 2 L baseline. He is primarily wheelchair dependent, but states that he can use a walker. CODE STATUS: Code status is full. Patient desires his brother Young Ireland in [place], [place], to act as proxy, if needed. PHYSICAL EXAMINATION: VITAL SIGNS: Upon arrival to the ER, blood pressure 108/ 97, heart rate 65, respiratory rate 18, O2 saturation 94% on 2 L with temperature 37.5. Current vitals are blood pressure 120/75, heart rate 83, respiratory rate 20, O2 saturation 91% on 5 L by OxyMask. GENERAL: No acute distress. Patient is lying quietly in bed. He does appear chronically ill. Thin, pleasant, and awake. HEAD: Normocephalic, atraumatic. EYES: Extraocular muscles grossly intact. Pupils equal, round, slightly decreased reactivity to light bilaterally but symmetric. No scleral icterus or conjunctival injection noted. ENT: Mucous membranes appear dry. Patient is edentulous. NECK: Supple. Trachea midline. CARDIOVASCULAR: Regular rate and rhythm. Slightly distant heart sounds. No murmurs, rubs, or gallops appreciated. RESPIRATORY: Patient with increased work of breathing and some use of accessory muscles, but in no current distress. Lung robert are diffusely diminished in air movement anterior and posterior lung robert. There is no wheezing, rales, or rhonchi appreciated. ABDOMEN: Positive bowel sounds. Soft, nontender to palpation. No rebound, guarding, or masses appreciated. GENITOURINARY: A Hernandez catheter is in place. No suprapubic tenderness to palpation. No CVA tenderness. MUSCULOSKELETAL: Generalized decondition and weakness. Patient is able to turn slightly but does have some difficulty sitting forward independently. NEUROLOGIC: Cranial nerves grossly nonfocal. No facial drooping. Moves all extremities. Strength in general with generalized weakness. Strength 4/5 in upper and lower extremities bilaterally and symmetric. PSYCHIATRIC: Patient's thought process and content currently appropriate. Patient is not agitated and cooperative. LABORATORY STUDIES: WBC 6.72, hemoglobin and hematocrit 15.3 and 42.5, MCV 81.0 , platelet count 249, no bands. D-dimer is pending. Sodium is 145, potassium 4.7, chloride 101, CO2 31, anion gap 13, BUN 25, creatinine 0.7, GFR greater than 60, glucose 91, calcium 9.9, BTNP 77. Chest x-ray, image reviewed myself, report is still pending compared to previous x-rays on 06/03/2017. Patient with some fluid layering and fissure. No acute infiltrates appreciated. Some chronic changes and cardiomegaly. The EKG obtained from EMS reviewed showing normal sinus rhythm in the 60s with some artifact but no acute ST changes. QT appears to be about 400. ASSESSMENT AND PLAN: Pleasant 62-year-old gentleman with history of chronic obstructive pulmonary disease and chronic respiratory failure who presents to the Emergency Department with acute on chronic shortness of breath. 1. Chronic obstructive pulmonary disease with exacerbation. Patient with significantly diminished air movement in all lung robert. He has received steroids, azithromycin and multiple nebulizer treatments with persistent drops in O2 saturation in between breathing treatments. Patient does require higher oxygen level needs. We will plan to continue azithromycin for empiric coverage in a setting of acute exacerbation, also for anti-inflammatory purposes. A sputum culture and influenza PCR will be obtained in addition given suspected viral upper respiratory infection ongoing with multiple sick contacts at patient 's living facility. We will continue with oxygen supplementation. Titrate as possible. Steroids, Pulmicort, nebulizers. 2. Acute on chronic hypoxic respiratory failure. Treatment plan to continue as noted above. The patient does have a D-dimer that is pending. If elevated, plan will be to for patient to go for a CT angio to rule out PE. Patient is predominantly wheelchair-bound with limited mobility. 3. Pleuritic chest pain. EKG is nondiagnostic for any signs of cardiac etiology. Symptoms are pleuritic in nature per the patient with cough and inspiration. We will check a troponin and again patient will go for CTA if D- dimer returns elevated. 4. Chronic bladder outlet obstruction with a chronic Hernandez catheter in place. Patient with a hospitalization last month for Enterococcus, suspected urinary source. Will plan to change his Hernandez catheter and subsequently obtain a UA. The patient does not meet any SIRS criteria. No. No plans for cultures currently unless patient develops a temperature. 5. History of chronic pain. Continue patient's Percocet. 6. History of depression. Continue Cymbalta. 7. Benign essential hypertension. Patient's blood pressures at this time acceptable. Renal function is within normal limits. We will plan to resume his lisinopril. 8. Gastroesophageal reflux disease. Continue H2 sonya per formulary. 9. Neuropathic pain. Continue gabapentin. 10. Fluid, electrolyte, and nutrition. Will continue with some gentle hydration given patient's continued increased work of breathing. Electrolyte replacement if needed. Diet as tolerated. 11. Prophylaxis. SCDs, Lovenox prophylactically pending CTA. 12. Code status is full. Patient desires his brother Young Ireland to act as proxy as needed. DISPOSITION: The patient initially admitted under observation status. However , after further review, patient has received multiple doses of nebulizer treatment with persistent drop in oxygenation. He has severe restricted air movement and anticipate that his treatment will require more than a 48-hour stay , particularly if D-dimer is elevated and patient does have a PE. /[id number]/MODL MTDD
--- NOTE | 2017-07-10 10:11 | PDMN ---
Medical Necessity Medical necessity: C/M review: est. > 2 MN LOS for eval and TX of acute COPD exacerbation, acute on chronic hypoxic respiratory failure, pleuritic chest pain , severe restricted movement requiring ongoing IV Azithramycin, IV steroids, Duonebs, pulse oximetry, supplemental O2, comorbid COPD, chronic bladder outlet obstruction with a chronic indwelling catheter in plane present on admit, patient wheelchair bound with limited mobility, history of chronic pain on continuous opiate therapy, depression, benighn essential hypertension, GERD, neuropathic pain, CVA with persistent left upper extremity weakness in 2016 per H/P.
[2017-07-10] MEDS ORDERED: IPRATROPIUM/ALBUTEROL 3 ML DEYVIAL IH PRN (10:35)
[2017-07-10] MEDS ORDERED: BISACODYL 5 MG EC TAB PO PRN (10:35)
[2017-07-10] MEDS ORDERED: ACETAMINOPHEN 500 MG TAB PO PRN (10:35)
[2017-07-10] MEDS ORDERED: OXYBUTYNIN 5 MG EXT REL TAB PO PRN (10:35)
--- NOTE | 2017-07-10 12:24 | HOSPPROG ---
Hospitalist Progress Note Assessment/Plan: 62y male with c/o SOB. #COPD exacerbation cont supportive care #Acute on chronic hypoxemia cont supportive care related to above #Pleuritic chest pain resolved #Chronic bladder outlet obstruction temple in place on meds #T12 abnormality on CT follow no intervention D/W ED #recent C1 Fx stable #Hx CVA chronic weakness #Hx HTN cont meds #Chronic pain cont meds #Dispo inpt will require in hospital stay Subjective: up in chair. No issues. Objective: Vital Signs Temp Pulse Resp BP Pulse Ox 37.4 C 94 18 109/68 91 L 07/10/17 10:20 07/10/17 10:20 07/10/17 10:20 07/10/17 10:20 07/10/17 10:20 07/09/17 07/10/17 07/11/17 05:59 05:59 05:59 Output Total 250 Balance -250 - Physical Exam Constitutional: chronically ill appearing Eyes: PERRL Ears, Nose, Mouth, Throat: moist mucous membranes Cardiovascular: No JVD Respiratory: no respiratory distress Gastrointestinal: No ascites Skin: warm Musculoskeletal: generalized weakness Psychiatric: not anxious, poor insight, poor judgement ICD10 Worksheet Patient Problems: Problems Problem Status Onset Fall Acute C1 cervical fracture Acute Hematoma Acute COPD (chronic obstructive pulmonary disease) Acute Palliative care encounter Acute Subdural hematoma Acute Urethral bleeding Acute Bacteremia Acute Chronic obstructive pulmonary disease with acute exacerbation Acute Chronic disease mgmt/Transitional care Acute Pneumonia Acute Hypoxia Acute
[2017-07-10] MEDS: FAMOTIDINE 20 MG TAB PO SCH ×2 (14:44→20:54)
[2017-07-10] MEDS: ENOXAPARIN 40 MG/0.4 ML SYR SC SCH (14:44)
[2017-07-10] MEDS: DULoxetine 60 MG CAP PO SCH (14:44)
[2017-07-10] MEDS: BUDESONIDE 0.5 MG/2 ML AMPUL.NEB IH SCH ×2 (14:55→21:34)
[2017-07-10] MEDS: IPRATROPIUM/ALBUTEROL 3 ML DEYVIAL IH SCH ×3 (14:55→21:34)
--- NOTE | 2017-07-10 15:26 | ASMTCMCOM ---
CM Note CM Note Notes: Pt admitted for shortness of breath and a cough. Per notes, pt has a significant medical hx including COPD w/ chronic hypoxic respiratory failure and a CVA w/ deficits in 2016. The pt is currently a resident at [facility]. The pt has indicated that he would like his brother, Young Ireland, in [place], [place] to be his proxy, if needed. Anticipate pt will likely return to [facility] when medically stable. CM will cont to follow for any potential needs. Current discharge plan: [facility] Date Signed: 07/10/2017 03:26 PM Electronically Signed By:Sheila Monroy RN
[2017-07-10] MEDS: methylPREDNISolone SOD SUCC 125 MG/2 ML VIAL IVP SCH (15:56)
[2017-07-10] MEDS: oxyCODONE IR 5 MG TAB PO PRN ×2 (15:58→22:16)
[2017-07-10] MEDS: GABAPENTIN 300 MG CAP PO SCH ×2 (15:58→20:55)
[2017-07-10] MEDS: TAMSULOSIN HCL 0.4 MG CAP PO SCH (20:54)
[2017-07-10] MEDS: guaiFENesin 600 MG TAB.ER PO SCH (20:54)
[2017-07-10] MEDS ORDERED: NON-FORMULARY NEW DRUG (Ranitidine Hcl [Ranitidine Hcl] 150 MG) PO SCH (21:00)
[2017-07-11] MEDS: methylPREDNISolone SOD SUCC 125 MG/2 ML VIAL IVP SCH ×2 (04:38→16:57)
[2017-07-11] MEDS: IPRATROPIUM/ALBUTEROL 3 ML DEYVIAL IH SCH ×4 (05:18→21:51)
[2017-07-11 05:24] LABS: % IMMATURE GRANULYOCYTES 0.3 % (0.0-1.1); ABSOLUTE IMMATURE GRANULOCYTES 0.03 10^3/uL (0.00-0.10); ADD DIFF? NO; ADD MORPH? NO; ADD SCAN? NO; ATYPICAL LYMPHOCYTE FLAG 10 (0-99); FRAGMENT RBC FLAG 0 (0-99); HEMATOCRIT 39.9 % (40.0-51.0); LEFT SHIFT FLG 0 (0-99); LIPEMIA HEMOLYSIS FLAG 80 (0-99); MEAN CELL HEMOGLOBIN 26.2 pg (27.9-34.1); MEAN CELL HEMOGLOBIN CONCENTR. 32.6 g/dL (32.4-36.7); MEAN CELL VOLUME 80.4 fL (81.5-99.8); MEAN PLATELET VOLUME 8.5 fL (8.7-11.7); PLATELET CLUMPS FLAG 0 (0-99); PLATELET COUNT 252 10^3/uL (150-400); RED BLOOD CELL COUNT 4.96 10^6/uL (4.40-6.38); RED CELL DISTRIBUTION WIDTH 16.7 % (11.5-15.2)
[2017-07-11 05:41] LABS: ANION GAP 15 mEq/L (8-16); CALCIUM 10.3 mg/dL (8.5-10.4); CARBON DIOXIDE 24 mEq/l (22-31); CHLORIDE 103 mEq/L (97-110); CREATININE 0.7 mg/dL (0.7-1.3); GLOMERULAR FILTRATION RATE > 60; GLUCOSE 120 mg/dL (70-100); POTASSIUM 4.7 mEq/L (3.5-5.2); SODIUM 142 mEq/L (134-144)
[2017-07-11] MEDS: oxyCODONE IR 5 MG TAB PO PRN ×3 (05:56→20:31)
[2017-07-11] MEDS ORDERED: AZITHROMYCIN IV 250 MG in D5W 250 ML IV SCH ×2 (06:00→09:00)
[2017-07-11] MEDS: POLYETHYLENE GLYCOL 3350 17 GM PKT PO SCH (09:29)
[2017-07-11] MEDS: GABAPENTIN 300 MG CAP PO SCH ×3 (09:29→20:32)
[2017-07-11] MEDS: guaiFENesin 600 MG TAB.ER PO SCH ×2 (09:29→20:32)
[2017-07-11] MEDS: ENOXAPARIN 40 MG/0.4 ML SYR SC SCH (09:29)
[2017-07-11] MEDS: MULTIVITAMINS 1 EACH TAB PO SCH (09:29)
[2017-07-11] MEDS: LISINOPRIL 20 MG TAB PO SCH (09:29)
[2017-07-11] MEDS: FOLIC ACID 1 MG TAB PO SCH (09:30)
[2017-07-11] MEDS: DULoxetine 60 MG CAP PO SCH (09:30)
[2017-07-11] MEDS: FAMOTIDINE 20 MG TAB PO SCH ×2 (09:30→20:32)
[2017-07-11] MEDS: BUDESONIDE 0.5 MG/2 ML AMPUL.NEB IH SCH ×2 (10:57→21:51)
--- NOTE | 2017-07-11 11:12 | HOSPPROG ---
Hospitalist Progress Note Assessment/Plan: 62y male with c/o SOB. #COPD exacerbation cont supportive care #Acute on chronic hypoxemia cont supportive care related to above #Pleuritic chest pain resolved #Chronic bladder outlet obstruction temple in place on meds #T12 abnormality on CT follow no intervention D/W ED #recent C1 Fx stable #Hx CVA chronic weakness #Hx HTN cont meds #Chronic pain cont meds #Dispo inpt will require in hospital stay possible DC back to [facility] in am Subjective: Feeling better. Still some SOB. Objective: Vital Signs Temp Pulse Resp BP Pulse Ox 36.7 C 105 H 16 107/72 93 07/11/17 07:31 07/11/17 07:31 07/11/17 07:31 07/11/17 09:29 07/11/17 07:31 Microbiology 07/10/17 12:43 Respiratory Panel (PCR) - Final Nasal, Sinus - Swab No Organism Detected Laboratory Results 07/11/17 05:10 07/11/17 05:10 07/10/17 07/11/17 07/12/17 05:59 05:59 05:59 Intake Total 1300 Output Total 1600 Balance -300 - Physical Exam Constitutional: appears nourished, chronically ill appearing Eyes: PERRL, anicteric sclera Ears, Nose, Mouth, Throat: moist mucous membranes, hearing normal Cardiovascular: No JVD, No edema Respiratory: no respiratory distress, reduced air movement Gastrointestinal: No tenderness, No ascites Skin: warm, normal color Musculoskeletal: no joint effusions, generalized weakness Neurologic: AAOx3 Psychiatric: not anxious, not encephalopathic, poor memory ICD10 Worksheet Patient Problems: Problems Problem Status Onset Fall Acute C1 cervical fracture Acute Hematoma Acute COPD (chronic obstructive pulmonary disease) Acute Palliative care encounter Acute Subdural hematoma Acute Urethral bleeding Acute Bacteremia Acute Chronic obstructive pulmonary disease with acute exacerbation Acute Chronic disease mgmt/Transitional care Acute Pneumonia Acute Hypoxia Acute
[2017-07-11] MEDS: TAMSULOSIN HCL 0.4 MG CAP PO SCH (20:32)
[2017-07-12] MEDS: methylPREDNISolone SOD SUCC 125 MG/2 ML VIAL IVP SCH (04:15)
[2017-07-12] MEDS: IPRATROPIUM/ALBUTEROL 3 ML DEYVIAL IH SCH ×2 (06:04→10:41)
[2017-07-12 07:57] VITALS: BP 124/83; RESP 16; TEMP 98.4
[2017-07-12] MEDS: DULoxetine 60 MG CAP PO SCH (08:29)
[2017-07-12] MEDS: ENOXAPARIN 40 MG/0.4 ML SYR SC SCH (08:29)
[2017-07-12] MEDS: MULTIVITAMINS 1 EACH TAB PO SCH (08:30)
[2017-07-12] MEDS: LISINOPRIL 20 MG TAB PO SCH (08:30)
[2017-07-12] MEDS: guaiFENesin 600 MG TAB.ER PO SCH (08:30)
[2017-07-12] MEDS: GABAPENTIN 300 MG CAP PO SCH (08:30)
[2017-07-12] MEDS: FOLIC ACID 1 MG TAB PO SCH (08:30)
[2017-07-12] MEDS: FAMOTIDINE 20 MG TAB PO SCH (08:30)
[2017-07-12] MEDS: POLYETHYLENE GLYCOL 3350 17 GM PKT PO SCH (08:31)
[2017-07-12] MEDS: oxyCODONE IR 5 MG TAB PO PRN (08:38)
[2017-07-12] MEDS ORDERED: AZITHROMYCIN 250 MG TAB PO SCH (09:00)
[2017-07-12] MEDS: BUDESONIDE 0.5 MG/2 ML AMPUL.NEB IH SCH (10:41)
[2017-07-12 10:48] VITALS: PULSE 92; O2SAT 2
--- NOTE | 2017-07-12 11:06 | PDIAF ---
- Diagnosis Diagnosis: copd Code Status: Full Code - Medication Management Discharge Medications: Medications to Continue on Transfer DULoxetine [Cymbalta 60 MG (*)] 60 mg PO DAILY 04/03/17 [Last Taken 07/09/17] Folic Acid [Folic Acid 1 MG (*)] 1 mg PO DAILY 04/03/17 [Last Taken 07/09/17] Multivitamins [Multivitamin (*)] 1 each PO DAILY 04/03/17 [Last Taken 07/09/17] Ranitidine HCl 150 mg PO BID 04/03/17 [Last Taken 07/09/17] Gabapentin [Neurontin 300 MG (*)] 600 mg PO TID 05/13/17 [Last Taken 07/09/17] Ipratropium/Albuterol [Duoneb (*)] 3 ml IH Q6HRS PRN 05/13/17 [Last Taken Unknown] Lisinopril [Zestril 20 mg (*)] 20 mg PO DAILY 05/13/17 [Last Taken 07/09/17] guaiFENesin [Mucinex 600 MG (*)] 600 mg PO BID 05/19/17 [Last Taken 07/09/17] Tamsulosin HCl [Flomax 0.4 MG (*)] 0.4 mg PO HS 06/04/17 [Last Taken 07/09/17] Acetaminophen [Tylenol ES 500 mg (*)] 1,000 mg PO Q8H PRN 07/10/17 [Last Taken Unknown] Bisacodyl [Bisacodyl (*)] 5 mg PO DAILY PRN 07/10/17 [Last Taken Unknown] Oxybutynin Chloride Xl [Ditropan Xl 5mg (*)] 2.5 mg PO Q8 PRN 07/10/17 [Last Taken 06/28/17] Polyethylene Glycol 3350 [Miralax 17 gm (*)] 17 gm PO DAILY 07/10/17 [Last Taken 07/09/17] oxyCODONE HCL/ACETAMINOPHEN [Percocet 10-325 mg Tablet] 1 each PO Q4 PRN [Last Taken 07/09/17] Azithromycin [Zithromax] 250 mg PO DAILY 2 Days tab 07/12/17 [Last Taken Unknown] oxyCODONE IR [Oxycodone Ir (*)] 5 - 10 mg PO Q6HRS PRN #10 tab 07/12/17 [Last Taken Unknown] predniSONE 40 mg PO DAILY 3 Days tab 07/12/17 [Last Taken Unknown] Discharge Medications: Refer to the Discharge Home Medication list for PRN reason. - Orders Services needed: Registered Nurse, Physical Therapy, Occupational Therapy Diet Recommendation: no restrictions on diet - Follow Up Care Current Providers and Referrals: Patient,NotPresent [Unknown] - As per Instructions
--- NOTE | 2017-07-12 14:49 | ASDISCHSUM ---
Discharge Information Plan Status:SNF Medically Cleared to Leave:07/11/2017 Discharge Date:07/12/2017 02:35 PM CM D/C Disposition:Detention Facility ADT D/C Disposition:Detention Facility Projected Discharge Date:07/12/2017 11:00 AM Transportation at D/C: Discharge Delay Reason: Follow-Up Date:07/12/2017 11:00 AM Discharge Slot: Final Diagnosis: Placement Information Referral Type:*Senior Living/SNF Referral ID:[id number] Provider Name:OBDULIA Cantu Address 1:[address] Phone Number: Address 2: Fax Number: [facility]:[place] Selection Factors: State:[place] Patient Contact Information Contact Name:KATHERYN Relationship:Simon Address: Work Phone: City: [facility] Phone: [facility] Code: Email: Financial Information Financial Class: Primary Plan Desc:MEDICARE INPATIENT Primary Plan Number:[id number] Secondary Plan Desc:MED[place] Secondary Plan Number:[id number] Assessment Information [facility] CM Progress Note CM Note CM Note Notes: Pt admitted for shortness of breath and a cough. Per MD notes, pt has a significant medical hx including COPD w/ chronic hypoxic respiratory failure and a CVA w/ deficits in 2016. The pt is currently a resident at [facility]. The pt has indicated that he would like his brother, Young Ireland, in [place], [place] to be his proxy, if needed. Anticipate pt will likely return to [facility] when medically stable. CM will cont to follow for any potential needs. Current discharge plan: [facility] Date Signed: 07/10/2017 03:26 PM Electronically Signed By:Sheila Monroy RN Case Management Discharge Plan Note Case Management Discharge Discharge Order Complete? Answers: Yes Followup Appointment 07/12/2017 12:00 AM Patient to Obtain Answers: Other Notes: [facility] Medications Transportation Arranged Answers: Other Notes: [facility] Transport will Pick (Date 07/12/2017 01:00 PM & Time) EMTALA Complete Answers: No Case Management Transport Answers: Yes Form Complete Faxed Final Orders Answers: Yes Agency/Facility Transfer Answers: Yes Report Printed & Faxed to Receiving Agency Family Notified Answers: No Discharge Comments Notes: Pt is being disharged back to [facility] today. CM provided YARY Morton w/ phone number to give report. CM sent d/c orders. CM available for changes. Plan: [facility] Date Signed: 07/12/2017 12:03 PM Electronically Signed By:HIPOLITO Zamarripa LACE LACE Length of stay for Answers: 2 days current admission Acuity / Level of Care Answers: Was the patient admitted to hospital via the emergency department? Yes: Comorbidities - select Answers: Chronic pulmonary disease all that apply Emergency dept visits in Answers: 3 last 6 months Score: 10 Date Signed: 07/12/2017 01:13 PM Electronically Signed By:Yessy Mendez Intervention Information Intervention Type:*IM-Signed Date of Service:07/12/2017 12:42 PM Patient Type:Inpatient Staff Member:Yessy Mendez Hours: Discipline: Severity: Comment:
--- NOTE | 2017-07-13 02:27 | GDS ---
[f rep st] DISCHARGE SUMMARY DISCHARGE DIAGNOSES: 1. Chronic obstructive pulmonary disease exacerbation. 2. Acute on chronic hypoxemia. 3. Pleuritic chest pain. 4. Chronic bladder outlet obstruction. 5. Incidental T12 abnormality on CT scan. 6. Recent C1 fracture. 7. History of cerebrovascular accident. 8. History of hypertension. 9. Chronic pain. PHYSICAL EXAM: GENERAL: The patient is alert. VITAL SIGNS: Afebrile 36.9, pulse is 92, respirator y rate 16, blood pressure is 124/83, saturating 92% on 2 L. I have seen and evaluated the patient on the day of discharge. HOSPITAL COURSE: The patient is a 62-year-old male who resides at [facility]. Presents to the em ergency room with complaints of shortness of breath. He was evaluated and diagnosed with: 1. COPD exacerbation. He has responded well to supportive management with steroid and treatment. H is oxygen needs have decreased and he will continue therapy at [facility]. 2. Acute on chronic hypoxemia. The patient is almost at his baseline oxygen requirement. We will c ontinue supportive therapy at the time of disposition. 3. Pleuritic chest pain. CT angio was performed with no notable pulmonary emboli. The patient's pa in has completely resolved. 4. Chronic bladder outlet obstruction. The patient has a chronic Hernandez catheter in place with no fu rther intervention warranted during this hospital course. 5. Incidental T12 abnormality. CT scan was noted to have some sort of T12 abnormality. This was re viewed during this hospital course with no indication for intervention. 6. Recent C1 fracture. This appears to be stable. The patient has been cleared to remove his colla r. 7. Chronic pain. His home medications have been continued. DISPOSITION: The patient will be discharged to return to [facility], where he normally resides. I spent greater than 35 minutes in the care, coordination, and management of this patient's dispositi on. DISCHARGE MEDICATIONS: Please refer to EMR form. I have provided the patient a new prescription for azithromycin, as well as prednisone. All of his other previously prescribed home medications have b een continued as ordered. /[id number]/MODL
== END 2017-07-12 14:35 | DRG 191 ==
LOC: EDUNIT# → OBSVTOIN 07:56 → F3N 10:11 → F3E 07-11 13:21
PROVIDERS: ADMIT Family Medicine; ATTEND Family Medicine
DX: J44.1 Chronic obstructive pulmonary disease with (acute) exacerbation (principal); R09.02 Hypoxemia; N32.0 Bladder-neck obstruction; I69.354 Hemiplegia and hemiparesis following cerebral infarction affecting left non-dominant side; K21.9 Gastro-esophageal reflux disease without esophagitis; M48.00 Spinal stenosis, site unspecified; I10 Essential (primary) hypertension; Z87.891 Personal history of nicotine dependence; Z96.0 Presence of urogenital implants; Z99.3 Dependence on wheelchair; Z99.81 Dependence on supplemental oxygen
CPT/HCPCS: 96374; 97116-GP; 97162-GP; 97165-GO; 97535-GO; G8978-GP-CK; G8979-GP-CJ; G8987-GO-CK; G8988-GO-CJ; J0456; J1650; J2930; J7626; Q9967

== ENCOUNTER 2017-07-31 02:57 | Emergency (ER) | payer OTHER, MEDICAID ==
--- NOTE | 2017-07-31 03:03 | EDPHY ---
H & P HPI/ROS: HPI CHIEF COMPLAINT: Hematuria HISTORY OF PRESENT ILLNESS: This patient very pleasant 62-year-old male, history of COPD, chronic bladder outlet obstruction with a chronic indwelling Hernandez, he resides at [facility], he sent here to the emergency room for blood around the Hernandez catheter. The patient reports to me that 2-3 days ago his Hernandez catheter got pulled out. He states that nurse at [facility] recently placed a new one in. However they noticed some blood on his sheets. Patient denies any significant abdominal pain. His Hernandez appears to be in place. I do not visualize any urethral or penile trauma on exam. His urine is in the Hernandez bag unclear in yellow. No gross hematuria. Past Medical History: COPD, chronic hypoxic respiratory failure, hypertension, CVA, chronic bladder outlet obstruction Past Surgical History: denies any recent surgical history Social History: Lives at [facility]. Family History: Noncontributory ROS REVIEW OF SYSTEMS: A comprehensive 10 point review of systems is otherwise negative aside from elements mentioned in the history of present illness. Exam Constitutional appears well nontoxic, triage nursing summary reviewed, vital signs reviewed, awake/alert. Eyes normal conjunctivae and sclera, EOMI, PERRLA. HENT normal inspection, atraumatic, moist mucus membranes, no epistaxis, neck supple/ no meningismus, no raccoon eyes. Respiratory clear to auscultation bilaterally, normal breath sounds, no respiratory distress, no wheezing. Cardiovascular rate normal, regular rhythm, no murmur, no edema, distal pulses normal. Gastrointestinal soft, non-tender, no rebound, no guarding, normal bowel sounds, no distension, no pulsatile mass. Genitourinary no CVA tenderness. : Circumcised, Hernnadez in place. No significant blood at the meatus. Musculoskeletal no midline vertebral tenderness, full range of motion, no calf swelling, no tenderness of extremities, no meningismus, good pulses, neurovascularly intact. Skin pink, warm, & dry, no rash, skin atraumatic. Neurologic awake, alert and oriented x 3, AAOx3, moves all 4 extremities equally, motor intact, sensory intact, CN II-XII intact, normal cerebellar, normal vision, normal speech. Psychiatric normal mood/affect. Heme/Lymph/Immune no lymphadenopathy. Differential Diagnosis: Includes but is not limited to in a particular order Hernandez trauma, urethral trauma from Hernandez, bladder trauma from Hernandez Medical Decision Making: Plan for this patient will bladder scan to make sure it is draining appropriately, will flush Hernandez catheter. And re-evaluate. Re-evaluation: 0314AM: Patient had a bladder scan shows 8 cc of urine. The Hernandez appears to be in place and draining appropriately. There is no hematuria. I do not appreciate any signs of hematuria at the meatus or in the Hernandez itself. The patient denies any pain denies abdominal pain or discomfort. Most likely had hematuria from a Hernandez trauma earlier. Will allow the patient to return to [facility]. Additionally a follow-up and return precautions discussed with the patient. As well as conveyed to [facility]. They understand to return emergency room if there is further bleeding pain fever questions or concerns. Source: Patient, EMS - Medical/Surgical History Hx Asthma: No Hx Chronic Respiratory Disease: Yes Hx Diabetes: No Hx Cardiac Disease: No Hx Renal Disease: No Hx Cirrhosis: No Hx Alcoholism: No Hx HIV/AIDS: No Hx Splenectomy or Spleen Trauma: No Other PMH: COPD. HTN. Spinal stenosis. Hepatitis. Cognitive communication deficit. Swelling to left upper arm.Fell....fx cervical, L frontal contusion,L subdural hematoma, CVA, PNEUMONIA,C1 FRACTURE, HEP C - Social History Smoking Status: Former smoker Constitutional: Initial Vital Signs Temperature (C) 37.0 C 07/31/17 03:06 Heart Rate 71 07/31/17 03:06 Respiratory Rate 18 07/31/17 03:06 Blood Pressure 120/85 H 07/31/17 03:06 O2 Sat (%) 91 L 07/31/17 03:06 O2 Delivery Mode Nasal Cannula O2 (L/minute) 3 Allergies/Adverse Reactions: vecuronium Allergy (Verified 07/31/17 03:08) Home Medications: Medication Instructions Recorded DULoxetine [Cymbalta 60 MG (*)] 60 mg PO DAILY 04/03/17 Folic Acid [Folic Acid 1 MG (*)] 1 mg PO DAILY 04/03/17 Multivitamins [Multivitamin (*)] 1 each PO DAILY 04/03/17 Ranitidine HCl 150 mg PO BID 04/03/17 Gabapentin [Neurontin 300 MG (*)] 600 mg PO TID 05/13/17 Ipratropium/Albuterol [Duoneb (*)] 3 ml IH Q6HRS PRN 05/13/17 Lisinopril [Zestril 20 mg (*)] 20 mg PO DAILY 05/13/17 guaiFENesin [Mucinex 600 MG (*)] 600 mg PO BID 05/19/17 Tamsulosin HCl [Flomax 0.4 MG (*)] 0.4 mg PO HS 06/04/17 Acetaminophen [Tylenol ES 500 mg 1,000 mg PO Q8H PRN 07/10/17 (*)] Bisacodyl [Bisacodyl (*)] 5 mg PO DAILY PRN 07/10/17 Oxybutynin Chloride Xl [Ditropan 2.5 mg PO Q8 PRN 07/10/17 Xl 5mg (*)] Polyethylene Glycol 3350 [Miralax 17 gm PO DAILY 07/10/17 17 gm (*)] oxyCODONE HCL/ACETAMINOPHEN 1 each PO Q4 PRN 07/10/17 [Percocet 10-325 mg Tablet] Azithromycin [Zithromax] 250 mg PO DAILY 2 Days tab 07/12/17 oxyCODONE IR [Oxycodone Ir (*)] 5 - 10 mg PO Q6HRS PRN #10 tab 07/12/17 predniSONE 40 mg PO DAILY 3 Days tab 07/12/17 Departure - Departure Disposition: Home, Routine, Self-Care Clinical Impression: Hernandez catheter in place Condition: Good Instructions: Hernandez Catheter Placement and Care (ED) Additional Instructions: 1. Return emergency room if there is any further signs of significant bleeding questions or concerns. Referrals: Patient,NotPresent [Primary Care Provider] - As per Instructions Kathy Lopez MD [Medical Doctor] - As per Instructions
[2017-07-31 03:08] VITALS: TEMP 98.6
[2017-07-31 03:44] VITALS: BP 100/64; PULSE 86; RESP 16; O2SAT 90
== END 2017-07-31 04:04 | disposition home or self-care (01) ==
LOC: EDUNIT#
DX: Z96.0 Presence of urogenital implants (principal); J44.9 Chronic obstructive pulmonary disease, unspecified; I10 Essential (primary) hypertension; Z86.73 Personal history of transient ischemic attack (TIA), and cerebral infarction without residual deficits; Z87.891 Personal history of nicotine dependence